=== PATIENT | female | born 1980 | race Caucasian/White ===

== ENCOUNTER 2019-02-27 00:03 | Emergency (ER) | payer MEDICAID, OTHER ==
[2019-02-27 00:27] VITALS: BP 120/75
== END 2019-02-27 00:45 | disposition left against medical advice (07) ==
LOC: MW.ED 00:03
DX: Z53.21 Procedure and treatment not carried out due to patient leaving prior to being seen by health care provider (principal)
CPT/HCPCS: 99283

== ENCOUNTER 2019-02-27 14:29 | Observation (INO) | payer MEDICAID ==
[2019-02-27] MEDS ORDERED: Sodium Chloride 0.9% 1,000 ML IV ONE ×2 (15:15→16:43)
--- NOTE | 2019-02-27 15:17 | EDM.PDOC ---
ED HPI GENERAL MEDICAL PROBLEM - General Chief Complaint: Drug or Alcohol Abuse Stated Complaint: CHEST PAINS Time Seen by Provider: 02/27/19 14:56 - History of Present Illness INITIAL COMMENTS - FREE TEXT/NARRATIVE: HISTORY AND PHYSICAL: History of present illness: Patient 38-year-old white female history of polysubstance abuse who presents with a concern of evaluation for possible rhabdomyolysis she states she's had similar episodes in the past when she had some mild rhabdomyolysis and feels similarly. She denies any other concern and states she has used heroin and methamphetamine as recently as yesterday Review of systems: As per history of present illness and below otherwise all systems reviewed and negative. Past medical history: As per history of present illness and as reviewed below otherwise noncontributory. Surgical history: As per history of present illness and as reviewed below otherwise noncontributory. Social history: No reported history of drug or alcohol abuse. Family history: As per history of present illness and as reviewed below otherwise noncontributory. Physical exam: HEENT: Atraumatic, normocephalic, pupils reactive, negative for conjunctival pallor or scleral icterus, mucous membranes moist, throat clear, neck supple, nontender, trachea midline. Lungs: Clear to auscultation, breath sounds equal bilaterally, chest nontender. Heart: S1S2, regular, negative for clicks, rubs, or JVD. Abdomen: Soft, nondistended, nontender. Negative for masses or hepatosplenomegaly. Negative for costovertebral tenderness. Pelvis: Stable nontender. Genitourinary: Deferred. Rectal: Deferred. Extremities: Atraumatic, negative for cords or calf pain. Neurovascular unremarkable. Neuro: Awake, alert, oriented. Cranial nerves II through XII unremarkable. Cerebellum unremarkable. Motor and sensory unremarkable throughout. Exam nonfocal. Diagnostics: CBC CMP UA hCG CPK Therapeutics: Saline 1 L bolus Impression: #1 medical screening exam over #2 history of polysubstance abuse Definitive disposition and diagnosis as appropriate pending reevaluation and review of above. Chest Pain Score (Numeric/FACES): 8 - Related Data Allergies Allergy/AdvReac Type Severity Reaction Status Date / Time ondansetron Allergy Rash Verified 02/27/19 14:32 [From Zofran (as hydrochloride)] tramadol Allergy Seizure Verified 02/27/19 14:32 Home Meds: Home Meds Doxepin [SINEquan] 100 mg PO BEDTIME 12/20/17 [History] Gabapentin [Neurontin] 400 mg PO BID 12/20/17 [History] Gabapentin [Neurontin] 800 mg PO BEDTIME 12/20/17 [History] OLANZapine [Olanzapine] 15 mg PO DAILY 12/20/17 [History] hydrOXYzine pamoate [Hydroxyzine Pamoate] 50 mg PO Q6H PRN 12/20/17 [History] Propranolol [Inderal] 20 mg PO DAILY 02/27/19 [History] Past Medical History HEENT History: Reports: None Cardiovascular History: Reports: Arrhythmia, Hypertension Respiratory History: Reports: PE Gastrointestinal History: Reports: None Genitourinary History: Reports: UTI, Recurrent PRICE CHECKER History: Reports: Other PRICE CHECKER History: Ovarian cyst Musculoskeletal History: Reports: Neck Pain, Chronic Neurological History: Reports: Seizure, Other (See Below) Other Neuro History: epilepsy Psychiatric History: Reports: Anxiety, Depression Endocrine/Metabolic History: Reports: None Hematologic History: Reports: Other (See Below) Other Hematologic History: clotting disorder Immunologic History: Reports: None Oncologic (Cancer) History: Reports: None - Infectious Disease History Infectious Disease History: Reports: Chicken Pox, Hepatitis C, MRSA - Past Surgical History Female Surgical History: Reports: Section, D&C, Tubal Ligation Social & Family History - Family History Family Medical History: Noncontributory Psychiatric: Reports: Anxiety, Depression, Emotional Problems - Tobacco Use Smoking Status *Q: Current Every Day Smoker Years of Tobacco use: 10 Packs/Tins Daily: 0.5 - Caffeine Use Caffeine Use: Reports: Coffee - Recreational Drug Use Recreational Drug Use: Yes Recreational Drug Type: Reports: Heroin, Marijuana/Hashish, Methamphetamine - Living Situation & Occupation Living situation: Reports: with Spouse ED ROS GENERAL - Review of Systems Review Of Systems: ROS reveals no pertinent complaints other than HPI. ED EXAM, GENERAL - Physical Exam Exam: See Below (See dictation) Course - Vital Signs Last Recorded V/S: Last Vital Signs Temp 36.2 C 02/27/19 14:33 Pulse 87 02/27/19 14:33 Resp 22 H 02/27/19 14:33 BP 122/85 02/27/19 14:33 Pulse Ox 98 02/27/19 14:33 - Orders/Labs/Meds Orders: Active Orders 24 hr Category Date Time Status CBC WITH AUTO DIFF [HEME] Stat Lab 02/27/19 15:40 Received COMPREHENSIVE METABOLIC PN,CMP [CHEM] Stat Lab 02/27/19 15:40 Received CPK [CREATINE KINASE,CK] [CHEM] Stat Lab 02/27/19 15:40 Received HCG QUALITATIVE,SERUM [CHEM] Stat Lab 02/27/19 15:40 Received UA RFX KRYSTEN AND CULT IF INDIC [URIN] Stat Lab 02/27/19 15:18 Received Sodium Chloride 0.9% [Normal Saline] 1,000 ml Med 02/27/19 16:43 Active IV STAT Medication Orders Sodium Chloride (Normal Saline) 1,000 mls @ 999 mls/hr IV STAT ONE Stop: 02/27/19 17:43 Last Admin: 02/27/19 17:17 Dose: 999 mls/hr Labs: Laboratory Tests 02/27/19 02/27/19 02/27/19 Range/Units 15:18 15:40 15:40 WBC 7.72 (4.0-11.0) K/uL RBC 4.19 L (4.30-5.90) M/uL Hgb 12.8 (12.0-16.0) g/dL Hct 36.6 (36.0-46.0) % MCV 87.4 (80.0-98.0) fL MCH 30.5 (27.0-32.0) pg MCHC 35.0 (31.0-37.0) g/dL RDW Std Deviation 44.3 (28.0-62.0) fl RDW Coeff of Michelle 14 (11.0-15.0) % Plt Count 307 (150-400) K/uL MPV 10.60 (7.40-12.00) fL Neut % (Auto) 24.8 L (48.0-80.0) % Lymph % (Auto) 58.9 H (16.0-40.0) % [place] % (Auto) 11.7 (0.0-15.0) % Eos % (Auto) 4.1 (0.0-7.0) % Baso % (Auto) 0.5 (0.0-1.5) % Neut # (Auto) 1.9 (1.4-5.7) K/uL Lymph # (Auto) 4.6 H (0.6-2.4) K/uL [place] # (Auto) 0.9 H (0.0-0.8) K/uL Eos # (Auto) 0.3 (0.0-0.7) K/uL Baso # (Auto) 0.0 (0.0-0.1) K/uL Sodium 135 L (136-145) mmol/L Potassium 3.8 (3.5-5.1) mmol/L Chloride 101 (98-107) mmol/L Carbon Dioxide 25.4 (21.0-32.0) mmol/L BUN 26 H (7.0-18.0) mg/dL Creatinine 1.4 H (0.6-1.0) mg/dL Est Cr Clr Drug Dosing TNP Estimated GFR (MDRD) 41.9 ml/min Glucose 105 (74-106) mg/dL Calcium 9.2 (8.5-10.1) mg/dL Total Bilirubin 0.4 (0.2-1.0) mg/dL AST 124 H (15-37) IU/L ALT 65 H (14-63) IU/L Alkaline Phosphatase 71 (46-116) U/L Creatine Kinase 1931 H (26-308) U/L Total Protein 7.0 (6.4-8.2) g/dL Albumin 3.6 (3.4-5.0) g/dL Globulin 3.4 (2.6-4.0) g/dL Albumin/Globulin Ratio 1.1 (0.9-1.6) HCG, Qual (NEG) Urine Color YELLOW Urine Appearance SLT CLOUDY Urine pH 5.0 (5.0-8.0) Ur Specific [place] >= 1.030 (1.001-1.035) Urine Protein TRACE H (NEGATIVE) mg/dL Urine Glucose (UA) NEGATIVE (NEGATIVE) mg/dL Urine Ketones NEGATIVE (NEGATIVE) mg/dL Urine Occult Blood NEGATIVE (NEGATIVE) Urine Nitrite NEGATIVE (NEGATIVE) Urine Bilirubin NEGATIVE (NEGATIVE) Urine Urobilinogen 0.2 (<2.0) EU/dL Ur Leukocyte Esterase NEGATIVE (NEGATIVE) Urine RBC 0-2 (0-2/HPF) Urine WBC 2-5 (0-5/HPF) Ur Epithelial Cells MANY (NONE-FEW) Urine Bacteria 1+ H (NEGATIVE) Hyaline Casts 12-15 (0-2/LPF) Urine Yeast OCCASIONAL 02/27/19 Range/Units 15:40 WBC (4.0-11.0) K/uL RBC (4.30-5.90) M/uL Hgb (12.0-16.0) g/dL Hct (36.0-46.0) % MCV (80.0-98.0) fL MCH (27.0-32.0) pg MCHC (31.0-37.0) g/dL RDW Std Deviation (28.0-62.0) fl RDW Coeff of Michelle (11.0-15.0) % Plt Count (150-400) K/uL MPV (7.40-12.00) fL Neut % (Auto) (48.0-80.0) % Lymph % (Auto) (16.0-40.0) % [place] % (Auto) (0.0-15.0) % Eos % (Auto) (0.0-7.0) % Baso % (Auto) (0.0-1.5) % Neut # (Auto) (1.4-5.7) K/uL Lymph # (Auto) (0.6-2.4) K/uL [place] # (Auto) (0.0-0.8) K/uL Eos # (Auto) (0.0-0.7) K/uL Baso # (Auto) (0.0-0.1) K/uL Sodium (136-145) mmol/L Potassium (3.5-5.1) mmol/L Chloride (98-107) mmol/L Carbon Dioxide (21.0-32.0) mmol/L BUN (7.0-18.0) mg/dL Creatinine (0.6-1.0) mg/dL Est Cr Clr Drug Dosing Estimated GFR (MDRD) ml/min Glucose (74-106) mg/dL Calcium (8.5-10.1) mg/dL Total Bilirubin (0.2-1.0) mg/dL AST (15-37) IU/L ALT (14-63) IU/L Alkaline Phosphatase (46-116) U/L Creatine Kinase (26-308) U/L Total Protein (6.4-8.2) g/dL Albumin (3.4-5.0) g/dL Globulin (2.6-4.0) g/dL Albumin/Globulin Ratio (0.9-1.6) HCG, Qual NEGATIVE (NEG) Urine Color Urine Appearance Urine pH (5.0-8.0) Ur Specific [place] (1.001-1.035) Urine Protein (NEGATIVE) mg/dL Urine Glucose (UA) (NEGATIVE) mg/dL Urine Ketones (NEGATIVE) mg/dL Urine Occult Blood (NEGATIVE) Urine Nitrite (NEGATIVE) Urine Bilirubin (NEGATIVE) Urine Urobilinogen (<2.0) EU/dL Ur Leukocyte Esterase (NEGATIVE) Urine RBC (0-2/HPF) Urine WBC (0-5/HPF) Ur Epithelial Cells (NONE-FEW) Urine Bacteria (NEGATIVE) Hyaline Casts (0-2/LPF) Urine Yeast Meds: Medications Generic Name Dose Route Start Last Admin Trade Name Freq PRN Reason Stop Dose Admin Sodium Chloride 1,000 mls @ 999 mls/hr 02/27/19 16:43 02/27/19 17:17 Normal Saline IV 02/27/19 17:43 999 mls/hr STAT ONE Administration Discontinued Medications Generic Name Dose Route Start Last Admin Trade Name Freq PRN Reason Stop Dose Admin Acetaminophen 1,000 mg 02/27/19 16:59 02/27/19 17:17 Tylenol Extra Strength PO 02/27/19 17:00 1,000 mg ONETIME ONE Administration Sodium Chloride 1,000 mls @ 999 mls/hr 02/27/19 15:15 02/27/19 15:48 Normal Saline IV 02/27/19 16:15 999 mls/hr STAT ONE Administration Lorazepam 1 mg 02/27/19 16:17 02/27/19 16:22 Ativan IVPUSH 02/27/19 16:18 1 mg NOW STA Administration Departure - Departure Time of Disposition: 17:41 Disposition: Refer to Observation Condition: Good Clinical Impression: Rhabdomyolysis, Polysubstance abuse - Discharge Information Referrals: PCP,None [Primary Care Provider] - Forms: ED Department Discharge - My Orders Last 24 Hours: My Active Orders 02/27/19 15:18 UA RFX KRYSTEN AND CULT IF INDIC [URIN] Stat 02/27/19 15:40 CBC WITH AUTO DIFF [HEME] Stat COMPREHENSIVE METABOLIC PN,CMP [CHEM] Stat CPK [CREATINE KINASE,CK] [CHEM] Stat HCG QUALITATIVE,SERUM [CHEM] Stat - Assessment/Plan Last 24 Hours: My Active Orders 02/27/19 15:18 UA RFX KYRSTEN AND CULT IF INDIC [URIN] Stat 02/27/19 15:40 CBC WITH AUTO DIFF [HEME] Stat COMPREHENSIVE METABOLIC PN,CMP [CHEM] Stat CPK [CREATINE KINASE,CK] [CHEM] Stat HCG QUALITATIVE,SERUM [CHEM] Stat
[2019-02-27] MEDS ORDERED: LORazepam 2 MG/ML SDV IVPUSH STA (16:17)
[2019-02-27 16:40] LABS: CHLORIDE,CL 101 mmol/L (98-107); SODIUM,NA 135 mmol/L (136-145)
[2019-02-27] MEDS ORDERED: Acetaminophen 500 MG Tab PO ONE (16:59)
[2019-02-27] MEDS ORDERED: cefTRIAXone 1 GM in Premix Bag 1 BAG IV ONE (17:43)
[2019-02-27] MEDS ORDERED: Ondansetron 4 MG/2 ML SDV IVPUSH PRN (18:15)
[2019-02-27] MEDS ORDERED: Docusate Sodium 100 MG Cap PO PRN (18:15)
[2019-02-27] MEDS ORDERED: hydrOXYzine Pamoate 25 MG Cap PO PRN (18:20)
--- NOTE | 2019-02-27 18:23 | PCM.HP ---
H&P History of Present Illness - General Date of Service: 02/27/19 Admit Problem/Dx: Admission Diagnosis/Problem Admission Diagnosis/Problem Rhabdomyolysis Source of Information: Patient, Family History Limitations: Reports: No Limitations - History of Present Illness Initial Comments - Free Text/Narative: The patient is a 38-year-old lady who had presented to the emergency department out of concern for polysubstance abuse. In the emergency department the patient was noted to have mild rhabdomyolysis. The patient reportedly had similar episodes in the past. Patient says that she is pending inpatient rehabilitation for polysubstance abuse when Medicaid application is approved. The patient has had back pain. The pain does not radiate. She describes the pain is completely up and down her back. No trauma. She has this whenever she has had withdrawal symptoms and this will go away on its own. The patient also has denied any nausea or vomiting. The patient says that she has recently moved to the area. Onset of Symptoms: Reports: Unknown/Unsure Duration of Symptoms: Reports: Week(s): Location: Reports: Generalized Quality: Reports: Ache, Throbbing Severity: Moderate Improves with: Reports: Rest Worsens with: Reports: None Context: Denies: Sick Contact, Trauma Associated Symptoms: Reports: No Other Symptoms Chest Pain Score (Numeric/FACES): 8 - Related Data Allergies/Adverse Reactions: Allergies Allergy/AdvReac Type Severity Reaction Status Date / Time ondansetron Allergy Rash Verified 02/27/19 14:32 [From Zofran (as hydrochloride)] tramadol Allergy Seizure Verified 02/27/19 14:32 Home Medications: Home Meds Doxepin [SINEquan] 100 mg PO BEDTIME 12/20/17 [History] Gabapentin [Neurontin] 400 mg PO BID 12/20/17 [History] Gabapentin [Neurontin] 800 mg PO BEDTIME 12/20/17 [History] OLANZapine [Olanzapine] 15 mg PO DAILY 12/20/17 [History] hydrOXYzine pamoate [Hydroxyzine Pamoate] 50 mg PO Q6H PRN 12/20/17 [History] Propranolol [Inderal] 20 mg PO DAILY 02/27/19 [History] Past Medical History HEENT History: Reports: None Cardiovascular History: Reports: Arrhythmia, Hypertension Respiratory History: Reports: PE Gastrointestinal History: Reports: None Genitourinary History: Reports: UTI, Recurrent 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 OF 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: Reports: Other OB/BYN History: Ovarian cyst Musculoskeletal History: Reports: Neck Pain, Chronic Neurological History: Reports: Seizure, Other (See Below) Other Neuro History: epilepsy Psychiatric History: Reports: Anxiety, Depression Endocrine/Metabolic History: Reports: None Hematologic History: Reports: Other (See Below) Other Hematologic History: clotting disorder Immunologic History: Reports: None Oncologic (Cancer) History: Reports: None Dermatologic History: Reports: None - Infectious Disease History Infectious Disease History: Reports: Chicken Pox, Hepatitis C, MRSA - Past Surgical History Female Surgical History: Reports: Section, D&C, Tubal Ligation Social & Family History - Family History Family Medical History: Noncontributory Psychiatric: Reports: Anxiety, Depression, Emotional Problems - Tobacco Use Smoking Status *Q: Current Every Day Smoker Years of Tobacco use: 10 Packs/Tins Daily: 0.5 - Caffeine Use Caffeine Use: Reports: Coffee - Recreational Drug Use Recreational Drug Use: Yes Recreational Drug Type: Reports: Heroin, Marijuana/Hashish, Methamphetamine - Living Situation & Occupation Living situation: Reports: with Spouse H&P Review of Systems - Review of Systems: Review Of Systems: See Below General: Reports: No Symptoms HEENT: Reports: Headaches Pulmonary: Reports: No Symptoms Cardiovascular: Reports: No Symptoms Gastrointestinal: Reports: No Symptoms Genitourinary: Reports: No Symptoms Musculoskeletal: Reports: Back Pain, Muscle Pain Skin: Reports: No Symptoms Psychiatric: Reports: Confusion, Mood Lability, Anxiety, Agitation. 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), Oriented, Cooperative HEENT: Conjunctiva Clear, EACs Clear, EOMI, Mucosa Moist & Roxie, PERRLA Neck: Supple, Trachea Midline, 2 Lungs: Clear to Auscultation, Normal Respiratory Effort Cardiovascular: Regular Rate, Regular Rhythm GI/Abdominal Exam: Normal Bowel Sounds (Currently eating), Soft, Non-Tender, No Distention (Female) Exam: Deferred Rectal (Female) Exam: Deferred Back Exam: Normal Inspection, Full Range of Motion, NT Extremities: Normal Inspection, Normal Range of Motion, No Pedal Edema Skin: Warm, Dry, Intact Neurological: Cranial Nerves Intact, Reflexes Equal Bilateral, Other (Marked dystonia). No: Normal Speech (Pressured speech) Neuro Extensive - Mental Status: Alert, Oriented x3 Neuro Extensive - Motor, Sensory, Reflexes: CN II-XII Intact, Normal Gait, Abnormal Motor Psychiatric: Alert, Normal Affect, Anxious, Agitated - Patient Data Lab Results Last 24 hrs: Laboratory Results - last 24 hr 02/27/19 02/27/19 02/27/19 Range/Units 15:18 15:40 15:40 WBC 7.72 (4.0-11.0) K/uL RBC 4.19 L (4.30-5.90) M/uL Hgb 12.8 (12.0-16.0) g/dL Hct 36.6 (36.0-46.0) % MCV 87.4 (80.0-98.0) fL MCH 30.5 (27.0-32.0) pg MCHC 35.0 (31.0-37.0) g/dL RDW Std Deviation 44.3 (28.0-62.0) fl RDW Coeff of Michelle 14 (11.0-15.0) % Plt Count 307 (150-400) K/uL MPV 10.60 (7.40-12.00) fL Neut % (Auto) 24.8 L (48.0-80.0) % Lymph % (Auto) 58.9 H (16.0-40.0) % Knox % (Auto) 11.7 (0.0-15.0) % Eos % (Auto) 4.1 (0.0-7.0) % Baso % (Auto) 0.5 (0.0-1.5) % Neut # (Auto) 1.9 (1.4-5.7) K/uL Lymph # (Auto) 4.6 H (0.6-2.4) K/uL Knox # (Auto) 0.9 H (0.0-0.8) K/uL Eos # (Auto) 0.3 (0.0-0.7) K/uL Baso # (Auto) 0.0 (0.0-0.1) K/uL Sodium 135 L (136-145) mmol/L Potassium 3.8 (3.5-5.1) mmol/L Chloride 101 (98-107) mmol/L Carbon Dioxide 25.4 (21.0-32.0) mmol/L BUN 26 H (7.0-18.0) mg/dL Creatinine 1.4 H (0.6-1.0) mg/dL Est Cr Clr Drug Dosing TNP Estimated GFR (MDRD) 41.9 ml/min Glucose 105 (74-106) mg/dL Calcium 9.2 (8.5-10.1) mg/dL Total Bilirubin 0.4 (0.2-1.0) mg/dL AST 124 H (15-37) IU/L ALT 65 H (14-63) IU/L Alkaline Phosphatase 71 (46-116) U/L Creatine Kinase 1931 H (26-308) U/L Total Protein 7.0 (6.4-8.2) g/dL Albumin 3.6 (3.4-5.0) g/dL Globulin 3.4 (2.6-4.0) g/dL Albumin/Globulin Ratio 1.1 (0.9-1.6) HCG, Qual (NEG) Urine Color YELLOW Urine Appearance SLT CLOUDY Urine pH 5.0 (5.0-8.0) Ur Specific Clif[place] >= 1.030 (1.001-1.035) Urine Protein TRACE H (NEGATIVE) mg/dL Urine Glucose (UA) NEGATIVE (NEGATIVE) mg/dL Urine Ketones NEGATIVE (NEGATIVE) mg/dL Urine Occult Blood NEGATIVE (NEGATIVE) Urine Nitrite NEGATIVE (NEGATIVE) Urine Bilirubin NEGATIVE (NEGATIVE) Urine Urobilinogen 0.2 (<2.0) EU/dL Ur Leukocyte Esterase NEGATIVE (NEGATIVE) Urine RBC 0-2 (0-2/HPF) Urine WBC 2-5 (0-5/HPF) Ur Epithelial Cells MANY (NONE-FEW) Urine Bacteria 1+ H (NEGATIVE) Hyaline Casts 12-15 (0-2/LPF) Urine Yeast OCCASIONAL 04/17/19 Range/Units 15:40 WBC (4.0-11.0) K/uL RBC (4.30-5.90) M/uL Hgb (12.0-16.0) g/dL Hct (36.0-46.0) % MCV (80.0-98.0) fL MCH (27.0-32.0) pg MCHC (31.0-37.0) g/dL RDW Std Deviation (28.0-62.0) fl RDW Coeff of Michelle (11.0-15.0) % Plt Count (150-400) K/uL MPV (7.40-12.00) fL Neut % (Auto) (48.0-80.0) % Lymph % (Auto) (16.0-40.0) % Knox % (Auto) (0.0-15.0) % Eos % (Auto) (0.0-7.0) % Baso % (Auto) (0.0-1.5) % Neut # (Auto) (1.4-5.7) K/uL Lymph # (Auto) (0.6-2.4) K/uL Knox # (Auto) (0.0-0.8) K/uL Eos # (Auto) (0.0-0.7) K/uL Baso # (Auto) (0.0-0.1) K/uL Sodium (136-145) mmol/L Potassium (3.5-5.1) mmol/L Chloride (98-107) mmol/L Carbon Dioxide (21.0-32.0) mmol/L BUN (7.0-18.0) mg/dL Creatinine (0.6-1.0) mg/dL Est Cr Clr Drug Dosing Estimated GFR (MDRD) ml/min Glucose (74-106) mg/dL Calcium (8.5-10.1) mg/dL Total Bilirubin (0.2-1.0) mg/dL AST (15-37) IU/L ALT (14-63) IU/L Alkaline Phosphatase (46-116) U/L Creatine Kinase (26-308) U/L Total Protein (6.4-8.2) g/dL Albumin (3.4-5.0) g/dL Globulin (2.6-4.0) g/dL Albumin/Globulin Ratio (0.9-1.6) HCG, Qual NEGATIVE (NEG) Urine Color Urine Appearance Urine pH (5.0-8.0) Ur Specific Clif[place] (1.001-1.035) Urine Protein (NEGATIVE) mg/dL Urine Glucose (UA) (NEGATIVE) mg/dL Urine Ketones (NEGATIVE) mg/dL Urine Occult Blood (NEGATIVE) Urine Nitrite (NEGATIVE) Urine Bilirubin (NEGATIVE) Urine Urobilinogen (<2.0) EU/dL Ur Leukocyte Esterase (NEGATIVE) Urine RBC (0-2/HPF) Urine WBC (0-5/HPF) Ur Epithelial Cells (NONE-FEW) Urine Bacteria (NEGATIVE) Hyaline Casts (0-2/LPF) Urine Yeast Result Diagrams: 02/28/19 04:50 02/28/19 04:50 - Problem List (1) Rhabdomyolysis SNOMED Code(s): 302969505 ICD Code: M62.82 - RHABDOMYOLYSIS Status: Acute Priority: High Current Visit: Yes Qualifiers: Rhabdomyolysis type: non-traumatic Qualified Code(s): M62.82 - Rhabdomyolysis (2) Anxiety SNOMED Code(s): 08223300 ICD Code: F41.9 - ANXIETY DISORDER, UNSPECIFIED Status: Chronic Priority : High Current Visit: Yes (3) UTI (urinary tract infection) SNOMED Code(s): 36410350 ICD Code: N39.0 - URINARY TRACT INFECTION, SITE NOT SPECIFIED Status: Acute Priority: High Current Visit: Yes Qualifiers: Urinary tract infection type: site unspecified Hematuria presence: without hematuria Qualified Code(s): N39.0 - Urinary tract infection, site not specified (4) Nausea & vomiting SNOMED Code(s): 47703653 ICD Code: R11.2 - NAUSEA WITH VOMITING, UNSPECIFIED Status: Acute Priority: High Current Visit: Yes Qualifiers: Vomiting type: bilious vomiting Qualified Code(s): R11.14 - Bilious vomiting (5) Polysubstance abuse SNOMED Code(s): 551187738 ICD Code: F19.10 - OTHER PSYCHOACTIVE SUBSTANCE ABUSE, UNCOMPLICATED Status : Chronic Priority: High Current Visit: Yes (6) Dehydration SNOMED Code(s): 08711012 ICD Code: E86.0 - DEHYDRATION Status: Acute Priority: High Current Visit: Yes Problem List Initiated/Reviewed/Updated: Yes Orders Last 24hrs: Active Orders 24 hr Category Date Time Status Patient Status [ADT] Stat ADT 02/27/19 17:42 Active Oxygen Therapy [RC] PRN Care 02/27/19 18:15 Ordered Up With Assistance [RC] ASDIRECTED Care 02/27/19 18:15 Ordered VTE/DVT Education [RC] PER UNIT ROUTINE Care 02/27/19 18:15 Ordered Vital Signs [RC] Q4H Care 02/27/19 18:15 Ordered Regular Diet [DIET] Diet 02/27/19 Breakfast Ordered CBC WITH AUTO DIFF [HEME] AM Lab 02/28/19 05:11 Ordered CBC WITH AUTO DIFF [HEME] Stat Lab 02/27/19 15:40 Received COMPREHENSIVE METABOLIC PN,CMP [CHEM] AM Lab 02/28/19 05:11 Ordered COMPREHENSIVE METABOLIC PN,CMP [CHEM] Stat Lab 02/27/19 15:40 Received CPK [CREATINE KINASE,CK] [CHEM] Stat Lab 02/27/19 15:40 Received CREATINE KINASE,CK [CHEM] Stat Lab 02/28/19 05:11 Ordered HCG QUALITATIVE,SERUM [CHEM] Stat Lab 02/27/19 15:40 Received UA RFX KRYSTEN AND CULT IF INDIC [URIN] Stat Lab 02/27/19 15:18 Received Acetaminophen [Tylenol] Med 02/27/19 18:15 Ordered 650 mg PO Q4H PRN Docusate Sodium [Colace] Med 02/27/19 18:15 Ordered 100 mg PO BID PRN Doxepin [SINEquan] Med 02/27/19 21:00 Ordered 100 mg PO BEDTIME Gabapentin Med 02/27/19 21:00 Ordered 400 mg PO BID Gabapentin [Neurontin] Med 02/27/19 21:00 Ordered 800 mg PO BEDTIME Heparin Sodium Med 02/27/19 18:15 Ordered 5,000 units SUBCUT Q8H Nicotine [Habitrol] Med 02/27/19 18:15 Ordered 14 mg TRDERM DAILY OLANZapine [Olanzapine] Med 02/28/19 09:00 Ordered 15 mg PO DAILY Ondansetron [Zofran] Med 02/27/19 18:15 Ordered 4 mg IVPUSH Q6H PRN Propranolol [Inderal] Med 02/28/19 09:00 Ordered 20 mg PO DAILY Sodium Chloride 0.9% @ 125 MLS/HR (1000ml) Med 02/27/19 18:15 Ordered Sodium Chloride 0.9% [Normal Saline] 1,000 ml IV ASDIRECTED hydrOXYzine pamoate [Hydroxyzine Pamoate] Med 02/27/19 18:20 Ordered 50 mg PO Q6H PRN Resuscitation Status Routine Resus Stat 02/27/19 18:15 Ordered Medication Orders Acetaminophen (Tylenol) 650 mg PO Q4H PRN PRN Reason: Pain (Mild 1-3)/fever Docusate Sodium (Colace) 100 mg PO BID PRN PRN Reason: Constipation Gabapentin (Neurontin) 800 mg PO BEDTIME BRANDEN Heparin Sodium (Porcine) (Heparin Sodium) 5,000 units SUBCUT Q8H BRANDEN Sodium Chloride (Normal Saline) 1,000 mls @ 125 mls/hr IV ASDIRECTED BRANDEN Nicotine (Habitrol) 14 mg TRDERM DAILY BRANDEN Non-Formulary Medication (Doxepin [Sinequan]) 100 mg PO BEDTIME BRANDEN Non-Formulary Medication (Gabapentin) 400 mg PO BID BRANDEN Non-Formulary Medication (Hydroxyzine Pamoate [Hydroxyzine Pamoate]) 50 mg PO Q6H PRN PRN Reason: Anxiety Non-Formulary Medication (Olanzapine [Olanzapine]) 15 mg PO DAILY BRANDEN Ondansetron HCl (Zofran) 4 mg IVPUSH Q6H PRN PRN Reason: Nausea/Vomiting Propranolol HCl (Inderal) 20 mg PO DAILY [facility] Assessment/Plan Comment:: The patient is a 38-year-old lady who has a significant past medical history of polysubstance abuse. The patient was admitted secondary to rhabdomyolysis with her CK elevated minimally above normal. This is likely secondary to the patient' s continued drug use. She will kept on IV normal saline at 125 mL per hour. This is done for renal preservation. Patient also says that her movement disorder will calm down after her pain is subsided. This is likely also secondary to withdrawal type symptoms. The patient is also dehydrated and the IV fluids should help this. I've ordered repeat laboratory studies for the morning as well as a CK to help check her rhabdomyolysis. Pending Medicaid approval the patient has said that she is going into inpatient drug and alcohol rehabilitation. The patient was not placed on CIWAA protocol other than being kept on telemetry. Given the patient's polysubstance abuse narcotic pain medications would not be given. The patient's pain will be controlled with the use of Tylenol or ibuprofen. She has been encouraged to ambulate. I've also ordered DVT prophylaxis. She should be appropriate for discharge once a CK has started to normalize.
[2019-02-27] MEDS: Gabapentin 800 MG Tab PO SCH (20:01)
[2019-02-27] MEDS: Sodium Chloride 0.9% 1,000 ML IV SCH (20:01)
[2019-02-27] MEDS: Doxepin 25 MG Cap PO SCH (20:01)
[2019-02-27] MEDS: Heparin Sodium 5,000 Units/ML Vial SUBCUT SCH (20:02)
[2019-02-27] MEDS: Nicotine 14 MG/24 Hr Patch TRDERM SCH (20:02)
[2019-02-28] MEDS: Heparin Sodium 5,000 Units/ML Vial SUBCUT SCH ×3 (02:50→18:51)
[2019-02-28] MEDS: Sodium Chloride 0.9% 1,000 ML IV SCH ×5 (02:51→23:40)
[2019-02-28 05:34] LABS: CHLORIDE,CL 109 mmol/L (98-107); SODIUM,NA 142 mmol/L (136-145)
[2019-02-28] MEDS: Gabapentin 800 MG Tab PO SCH ×3 (08:12→20:05)
[2019-02-28] MEDS: OLANZapine 5 MG Tab PO SCH (08:13)
[2019-02-28] MEDS: Propranolol 20 MG Tab PO SCH (08:14)
[2019-02-28] MEDS: Nicotine 14 MG/24 Hr Patch TRDERM SCH (08:14)
[2019-02-28] MEDS: Ciprofloxacin 500 MG Tab PO SCH ×2 (08:14→20:05)
[2019-02-28] MEDS: Acetaminophen 325 MG Tab PO PRN ×3 (08:32→18:51)
[2019-02-28] MEDS ORDERED: Sodium Chloride 0.9% 1,000 ML IV ONE (08:32)
--- NOTE | 2019-02-28 08:52 | PCM.PN ---
<Annamarie Sheffield M - Last Filed: 02/28/19 10:02> - General Info Date of Service: 02/28/19 Admission Dx/Problem (Free Text): Admission Diagnosis/Problem Admission Diagnosis/Problem Rhabdomyolysis Subjective Update: Reports having pain all over, but has improved since arrival in the ED. No Chest pain or SOB. reports carpal tunnel in R hand is hurting as well. at bedside with her. No other complaints. Would like to talk with social work regarding Medicaid Functional Status: Reports: Pain Controlled, Tolerating Diet, Ambulating, Urinating - Review of Systems General: Reports: Fatigue, Malaise HEENT: Reports: No Symptoms. Denies: Headaches, Sore Throat Pulmonary: Reports: No Symptoms. Denies: Shortness of Breath Cardiovascular: Reports: No Symptoms. Denies: Chest Pain Gastrointestinal: Reports: No Symptoms. Denies: Abdominal Pain, Nausea, Vomiting Genitourinary: Reports: No Symptoms Musculoskeletal: Reports: Hand Pain (R hand carpal tunnel painful), Joint Pain Skin: Reports: No Symptoms Neurological: Reports: No Symptoms Psychiatric: Reports: No Symptoms - Patient Data Vitals - Most Recent: Last Vital Signs Temp 96.5 F 02/28/19 07:26 Pulse 77 02/28/19 07:26 Resp 18 02/28/19 07:26 BP 104/59 L 02/28/19 07:26 Pulse Ox 95 02/28/19 03:54 Weight - Most Recent: 58.06 kg I&O - Last 24 Hours: Intake & Output 02/27/19 02/28/19 02/28/19 22:59 06:59 14:59 Intake Total 1453 Output Total 350 Balance 1103 Lab Results Last 24 Hours: Laboratory Results - last 24 hr 02/27/19 02/27/19 02/27/19 Range/Units 15:18 15:40 15:40 WBC 7.72 (4.0-11.0) K/uL RBC 4.19 L (4.30-5.90) M/uL Hgb 12.8 (12.0-16.0) g/dL Hct 36.6 (36.0-46.0) % MCV 87.4 (80.0-98.0) fL MCH 30.5 (27.0-32.0) pg MCHC 35.0 (31.0-37.0) g/dL RDW Std Deviation 44.3 (28.0-62.0) fl RDW Coeff of Michelle 14 (11.0-15.0) % Plt Count 307 (150-400) K/uL MPV 10.60 (7.40-12.00) fL Neut % (Auto) 24.8 L (48.0-80.0) % Lymph % (Auto) 58.9 H (16.0-40.0) % Kay % (Auto) 11.7 (0.0-15.0) % Eos % (Auto) 4.1 (0.0-7.0) % Baso % (Auto) 0.5 (0.0-1.5) % Neut # (Auto) 1.9 (1.4-5.7) K/uL Lymph # (Auto) 4.6 H (0.6-2.4) K/uL Kay # (Auto) 0.9 H (0.0-0.8) K/uL Eos # (Auto) 0.3 (0.0-0.7) K/uL Baso # (Auto) 0.0 (0.0-0.1) K/uL Sodium 135 L (136-145) mmol/L Potassium 3.8 (3.5-5.1) mmol/L Chloride 101 (98-107) mmol/L Carbon Dioxide 25.4 (21.0-32.0) mmol/L BUN 26 H (7.0-18.0) mg/dL Creatinine 1.4 H (0.6-1.0) mg/dL Est Cr Clr Drug Dosing TNP Estimated GFR (MDRD) 41.9 ml/min Glucose 105 (74-106) mg/dL Calcium 9.2 (8.5-10.1) mg/dL Total Bilirubin 0.4 (0.2-1.0) mg/dL AST 124 H (15-37) IU/L ALT 65 H (14-63) IU/L Alkaline Phosphatase 71 (46-116) U/L Creatine Kinase 1931 H (26-308) U/L Total Protein 7.0 (6.4-8.2) g/dL Albumin 3.6 (3.4-5.0) g/dL Globulin 3.4 (2.6-4.0) g/dL Albumin/Globulin Ratio 1.1 (0.9-1.6) HCG, Qual (NEG) Urine Color YELLOW Urine Appearance SLT CLOUDY Urine pH 5.0 (5.0-8.0) Ur Specific [place] >= 1.030 (1.001-1.035) Urine Protein TRACE H (NEGATIVE) mg/dL Urine Glucose (UA) NEGATIVE (NEGATIVE) mg/dL Urine Ketones NEGATIVE (NEGATIVE) mg/dL Urine Occult Blood NEGATIVE (NEGATIVE) Urine Nitrite NEGATIVE (NEGATIVE) Urine Bilirubin NEGATIVE (NEGATIVE) Urine Urobilinogen 0.2 (<2.0) EU/dL Ur Leukocyte Esterase NEGATIVE (NEGATIVE) Urine RBC 0-2 (0-2/HPF) Urine WBC 2-5 (0-5/HPF) Ur Epithelial Cells MANY (NONE-FEW) Urine Bacteria 1+ H (NEGATIVE) Hyaline Casts 12-15 (0-2/LPF) Urine Yeast OCCASIONAL 02/27/19 02/28/19 02/28/19 Range/Units 15:40 04:50 04:50 WBC 3.14 L (4.0-11.0) K/uL RBC 3.79 L (4.30-5.90) M/uL Hgb 11.5 L (12.0-16.0) g/dL Hct 34.0 L (36.0-46.0) % MCV 89.7 (80.0-98.0) fL MCH 30.3 (27.0-32.0) pg MCHC 33.8 (31.0-37.0) g/dL RDW Std Deviation 46.5 (28.0-62.0) fl RDW Coeff of Michelle 15 (11.0-15.0) % Plt Count 232 (150-400) K/uL MPV 10.40 (7.40-12.00) fL Neut % (Auto) 28.7 L (48.0-80.0) % Lymph % (Auto) 55.1 H (16.0-40.0) % Kay % (Auto) 8.9 (0.0-15.0) % Eos % (Auto) 5.7 (0.0-7.0) % Baso % (Auto) 1.6 H (0.0-1.5) % Neut # (Auto) 0.9 L (1.4-5.7) K/uL Lymph # (Auto) 1.7 (0.6-2.4) K/uL Kay # (Auto) 0.3 (0.0-0.8) K/uL Eos # (Auto) 0.2 (0.0-0.7) K/uL Baso # (Auto) 0.1 (0.0-0.1) K/uL Sodium 142 (136-145) mmol/L Potassium 4.0 (3.5-5.1) mmol/L Chloride 109 H (98-107) mmol/L Carbon Dioxide 25.1 (21.0-32.0) mmol/L BUN 20 H (7.0-18.0) mg/dL Creatinine 1.0 (0.6-1.0) mg/dL Est Cr Clr Drug Dosing 76.50 Estimated GFR (MDRD) > 60.0 ml/min Glucose 133 H (74-106) mg/dL Calcium 7.8 L (8.5-10.1) mg/dL Total Bilirubin 0.2 (0.2-1.0) mg/dL AST 93 H (15-37) IU/L ALT 57 (14-63) IU/L Alkaline Phosphatase 68 (46-116) U/L Creatine Kinase 815 H (26-308) U/L Total Protein 5.5 L (6.4-8.2) g/dL Albumin 2.5 L (3.4-5.0) g/dL Globulin 3.0 (2.6-4.0) g/dL Albumin/Globulin Ratio 0.8 L (0.9-1.6) HCG, Qual NEGATIVE (NEG) Urine Color Urine Appearance Urine pH (5.0-8.0) Ur Specific [place] (1.001-1.035) Urine Protein (NEGATIVE) mg/dL Urine Glucose (UA) (NEGATIVE) mg/dL Urine Ketones (NEGATIVE) mg/dL Urine Occult Blood (NEGATIVE) Urine Nitrite (NEGATIVE) Urine Bilirubin (NEGATIVE) Urine Urobilinogen (<2.0) EU/dL Ur Leukocyte Esterase (NEGATIVE) Urine RBC (0-2/HPF) Urine WBC (0-5/HPF) Ur Epithelial Cells (NONE-FEW) Urine Bacteria (NEGATIVE) Hyaline Casts (0-2/LPF) Urine Yeast Med Orders - Current: Current Medications Acetaminophen (Tylenol) 650 mg PO Q4H PRN PRN Reason: Pain (Mild 1-3)/fever Last Admin: 02/28/19 08:32 Dose: 650 mg Ciprofloxacin (Ciprofloxacin Hcl) 500 mg PO BID [facility] Last Admin: 02/28/19 08:14 Dose: 500 mg Docusate Sodium (Colace) 100 mg PO BID PRN PRN Reason: Constipation Doxepin HCl (Sinequan) 100 mg PO BEDTIME [facility] Last Admin: 02/27/19 20:01 Dose: 100 mg Gabapentin (Neurontin) 400 mg PO BID@0900,1400 [facility] Last Admin: 02/28/19 08:12 Dose: 400 mg Gabapentin (Neurontin) 800 mg PO BEDTIME [facility] Last Admin: 02/27/19 20:01 Dose: 800 mg Heparin Sodium (Porcine) (Heparin Sodium) 5,000 units SUBCUT Q8H [facility] Last Admin: 02/28/19 02:50 Dose: 5,000 units Hydroxyzine Pamoate (Vistaril) 50 mg PO Q6H PRN PRN Reason: Anxiety Last Admin: 02/27/19 20:13 Dose: 50 mg Sodium Chloride (Normal Saline) 1,000 mls @ 999 mls/hr IV .Bolus ONE Stop: 02/28/19 09:32 Sodium Chloride (Normal Saline) 1,000 mls @ 200 mls/hr IV ASDIRECTED [facility] Nicotine (Habitrol) 14 mg TRDERM DAILY [facility] Last Admin: 02/28/19 08:14 Dose: 14 mg Olanzapine (Zyprexa) 15 mg PO DAILY [facility] Last Admin: 02/28/19 08:13 Dose: 15 mg Propranolol HCl (Inderal) 20 mg PO DAILY [facility] Last Admin: 02/28/19 08:14 Dose: 20 mg Discontinued Medications Acetaminophen (Tylenol Extra Strength) 1,000 mg PO ONETIME ONE Stop: 02/27/19 17:00 Last Admin: 02/27/19 17:17 Dose: 1,000 mg Sodium Chloride (Normal Saline) 1,000 mls @ 999 mls/hr IV STAT ONE Stop: 02/27/19 16:15 Last Admin: 02/27/19 15:48 Dose: 999 mls/hr Sodium Chloride (Normal Saline) 1,000 mls @ 999 mls/hr IV STAT ONE Stop: 02/27/19 17:43 Last Infusion: 02/27/19 17:53 Dose: 100 mls/hr Ceftriaxone Sodium/Dextrose 1 (gm/ Premix) 50 mls @ 100 mls/hr IV ONETIME ONE Stop: 02/27/19 18:12 Last Admin: 02/27/19 17:51 Dose: 100 mls/hr Sodium Chloride (Normal Saline) 1,000 mls @ 125 mls/hr IV ASDIRECTED [facility] Last Admin: 02/28/19 02:51 Dose: 125 mls/hr Lorazepam (Ativan) 1 mg IVPUSH NOW STA Stop: 02/27/19 16:18 Last Admin: 02/27/19 16:22 Dose: 1 mg Ondansetron HCl (Zofran) 4 mg IVPUSH Q6H PRN PRN Reason: Nausea/Vomiting - Exam General: Alert, Oriented Lungs: Clear to Auscultation, Normal Respiratory Effort Cardiovascular: Regular Rate, Regular Rhythm GI/Abdominal Exam: Normal Bowel Sounds, Soft, Non-Tender, No Organomegaly Extremities: Normal Inspection, Normal Range of Motion, Non-Tender, No Pedal Edema, Normal Capillary Refill Neurological: No New Focal Deficit Psy/Mental Status: Alert, Normal Affect, Normal Mood - Problem List & Annotations (1) Rhabdomyolysis SNOMED Code(s): 499329631 Code(s): M62.82 - RHABDOMYOLYSIS Status: Acute Priority: High Current Visit: Yes Qualifiers: Rhabdomyolysis type: non-traumatic Qualified Code(s): M62.82 - Rhabdomyolysis (2) Dehydration SNOMED Code(s): 55509236 Code(s): E86.0 - DEHYDRATION Status: Acute Priority: High Current Visit : Yes (3) Nausea & vomiting SNOMED Code(s): 41172189 Code(s): R11.2 - NAUSEA WITH VOMITING, UNSPECIFIED Status: Acute Priority : High Current Visit: Yes Qualifiers: Vomiting type: bilious vomiting Qualified Code(s): R11.14 - Bilious vomiting (4) UTI (urinary tract infection) SNOMED Code(s): 51862294 Code(s): N39.0 - URINARY TRACT INFECTION, SITE NOT SPECIFIED Status: Acute Priority: High Current Visit: Yes Qualifiers: Urinary tract infection type: site unspecified Hematuria presence: without hematuria Qualified Code(s): N39.0 - Urinary tract infection, site not specified (5) Anxiety SNOMED Code(s): 14379455 Code(s): F41.9 - ANXIETY DISORDER, UNSPECIFIED Status: Chronic Priority: High Current Visit: Yes (6) Polysubstance abuse SNOMED Code(s): 009297483 Code(s): F19.10 - OTHER PSYCHOACTIVE SUBSTANCE ABUSE, UNCOMPLICATED Status : Chronic Priority: High Current Visit: Yes - Problem List Review Problem List Initiated/Reviewed/Updated: Yes - My Orders Last 24 Hours: My Active Orders 02/28/19 08:32 Sodium Chloride 0.9% [Normal Saline] 1,000 ml IV .Bolus 02/28/19 08:33 Sodium Chloride 0.9% [Normal Saline] 1,000 ml IV ASDIRECTED - Plan Plan:: This 38 year old female admitted with rhabdomyolysis 1. Rhabdomyolysis: CPK improving this morning. Muscle pain improving as well. Will give 1 L bolus and increase IVFs to 200 ml/hr. Recheck CPK in am. Tylenol is helping with pain 2. Chronic pain: Continue Gabapentin. 3. Anxiety: Continue Vistaril. Monitor, stable. 4. Polysubstance abuse: Pending Medicaid approval for her to enter rehab facility. VE prophylaxis: Heparin Dispo: 1-2 days pending improvement. <Pankaj Adams - Last Filed: 02/28/19 12:16> - General Info Admission Dx/Problem (Free Text): I have seen and examined the patient independently of Annamarie Sheffield CNP. I have discussed the case with her. I have reviewed and agreed with the plan of treatment as outlined for this patient by her. Please see orders. - Patient Data Vitals - Most Recent: Last Vital Signs Temp 36.3 C 02/28/19 11:33 Pulse 68 02/28/19 11:33 Resp 16 02/28/19 11:33 BP 104/65 02/28/19 11:33 Pulse Ox 99 02/28/19 11:33 I&O - Last 24 Hours: Intake & Output 02/27/19 02/28/19 02/28/19 22:59 06:59 14:59 Intake Total 1453 Output Total 350 Balance 1103 Lab Results Last 24 Hours: Laboratory Results - last 24 hr 02/27/19 02/27/19 02/27/19 Range/Units 15:18 15:40 15:40 WBC 7.72 (4.0-11.0) K/uL RBC 4.19 L (4.30-5.90) M/uL Hgb 12.8 (12.0-16.0) g/dL Hct 36.6 (36.0-46.0) % MCV 87.4 (80.0-98.0) fL MCH 30.5 (27.0-32.0) pg MCHC 35.0 (31.0-37.0) g/dL RDW Std Deviation 44.3 (28.0-62.0) fl RDW Coeff of Michelle 14 (11.0-15.0) % Plt Count 307 (150-400) K/uL MPV 10.60 (7.40-12.00) fL Neut % (Auto) 24.8 L (48.0-80.0) % Lymph % (Auto) 58.9 H (16.0-40.0) % Kay % (Auto) 11.7 (0.0-15.0) % Eos % (Auto) 4.1 (0.0-7.0) % Baso % (Auto) 0.5 (0.0-1.5) % Neut # (Auto) 1.9 (1.4-5.7) K/uL Lymph # (Auto) 4.6 H (0.6-2.4) K/uL Kay # (Auto) 0.9 H (0.0-0.8) K/uL Eos # (Auto) 0.3 (0.0-0.7) K/uL Baso # (Auto) 0.0 (0.0-0.1) K/uL Sodium 135 L (136-145) mmol/L Potassium 3.8 (3.5-5.1) mmol/L Chloride 101 (98-107) mmol/L Carbon Dioxide 25.4 (21.0-32.0) mmol/L BUN 26 H (7.0-18.0) mg/dL Creatinine 1.4 H (0.6-1.0) mg/dL Est Cr Clr Drug Dosing TNP Estimated GFR (MDRD) 41.9 ml/min Glucose 105 (74-106) mg/dL Calcium 9.2 (8.5-10.1) mg/dL Total Bilirubin 0.4 (0.2-1.0) mg/dL AST 124 H (15-37) IU/L ALT 65 H (14-63) IU/L Alkaline Phosphatase 71 (46-116) U/L Creatine Kinase 1931 H (26-308) U/L Total Protein 7.0 (6.4-8.2) g/dL Albumin 3.6 (3.4-5.0) g/dL Globulin 3.4 (2.6-4.0) g/dL Albumin/Globulin Ratio 1.1 (0.9-1.6) HCG, Qual (NEG) Urine Color YELLOW Urine Appearance SLT CLOUDY Urine pH 5.0 (5.0-8.0) Ur Specific [place] >= 1.030 (1.001-1.035) Urine Protein TRACE H (NEGATIVE) mg/dL Urine Glucose (UA) NEGATIVE (NEGATIVE) mg/dL Urine Ketones NEGATIVE (NEGATIVE) mg/dL Urine Occult Blood NEGATIVE (NEGATIVE) Urine Nitrite NEGATIVE (NEGATIVE) Urine Bilirubin NEGATIVE (NEGATIVE) Urine Urobilinogen 0.2 (<2.0) EU/dL Ur Leukocyte Esterase NEGATIVE (NEGATIVE) Urine RBC 0-2 (0-2/HPF) Urine WBC 2-5 (0-5/HPF) Ur Epithelial Cells MANY (NONE-FEW) Urine Bacteria 1+ H (NEGATIVE) Hyaline Casts 12-15 (0-2/LPF) Urine Yeast OCCASIONAL 02/27/19 02/28/19 02/28/19 Range/Units 15:40 04:50 04:50 WBC 3.14 L (4.0-11.0) K/uL RBC 3.79 L (4.30-5.90) M/uL Hgb 11.5 L (12.0-16.0) g/dL Hct 34.0 L (36.0-46.0) % MCV 89.7 (80.0-98.0) fL MCH 30.3 (27.0-32.0) pg MCHC 33.8 (31.0-37.0) g/dL RDW Std Deviation 46.5 (28.0-62.0) fl RDW Coeff of Michelle 15 (11.0-15.0) % Plt Count 232 (150-400) K/uL MPV 10.40 (7.40-12.00) fL Neut % (Auto) 28.7 L (48.0-80.0) % Lymph % (Auto) 55.1 H (16.0-40.0) % Kay % (Auto) 8.9 (0.0-15.0) % Eos % (Auto) 5.7 (0.0-7.0) % Baso % (Auto) 1.6 H (0.0-1.5) % Neut # (Auto) 0.9 L (1.4-5.7) K/uL Lymph # (Auto) 1.7 (0.6-2.4) K/uL Kay # (Auto) 0.3 (0.0-0.8) K/uL Eos # (Auto) 0.2 (0.0-0.7) K/uL Baso # (Auto) 0.1 (0.0-0.1) K/uL Sodium 142 (136-145) mmol/L Potassium 4.0 (3.5-5.1) mmol/L Chloride 109 H (98-107) mmol/L Carbon Dioxide 25.1 (21.0-32.0) mmol/L BUN 20 H (7.0-18.0) mg/dL Creatinine 1.0 (0.6-1.0) mg/dL Est Cr Clr Drug Dosing 76.50 Estimated GFR (MDRD) > 60.0 ml/min Glucose 133 H (74-106) mg/dL Calcium 7.8 L (8.5-10.1) mg/dL Total Bilirubin 0.2 (0.2-1.0) mg/dL AST 93 H (15-37) IU/L ALT 57 (14-63) IU/L Alkaline Phosphatase 68 (46-116) U/L Creatine Kinase 815 H (26-308) U/L Total Protein 5.5 L (6.4-8.2) g/dL Albumin 2.5 L (3.4-5.0) g/dL Globulin 3.0 (2.6-4.0) g/dL Albumin/Globulin Ratio 0.8 L (0.9-1.6) HCG, Qual NEGATIVE (NEG) Urine Color Urine Appearance Urine pH (5.0-8.0) Ur Specific [place] (1.001-1.035) Urine Protein (NEGATIVE) mg/dL Urine Glucose (UA) (NEGATIVE) mg/dL Urine Ketones (NEGATIVE) mg/dL Urine Occult Blood (NEGATIVE) Urine Nitrite (NEGATIVE) Urine Bilirubin (NEGATIVE) Urine Urobilinogen (<2.0) EU/dL Ur Leukocyte Esterase (NEGATIVE) Urine RBC (0-2/HPF) Urine WBC (0-5/HPF) Ur Epithelial Cells (NONE-FEW) Urine Bacteria (NEGATIVE) Hyaline Casts (0-2/LPF) Urine Yeast Med Orders - Current: Current Medications Acetaminophen (Tylenol) 650 mg PO Q4H PRN PRN Reason: Pain (Mild 1-3)/fever Last Admin: 02/28/19 08:32 Dose: 650 mg Ciprofloxacin (Ciprofloxacin Hcl) 500 mg PO BID [facility] Last Admin: 02/28/19 08:14 Dose: 500 mg Docusate Sodium (Colace) 100 mg PO BID PRN PRN Reason: Constipation Doxepin HCl (Sinequan) 100 mg PO BEDTIME [facility] Last Admin: 02/27/19 20:01 Dose: 100 mg Gabapentin (Neurontin) 400 mg PO BID@0900,1400 [facility] Last Admin: 02/28/19 08:12 Dose: 400 mg Gabapentin (Neurontin) 800 mg PO BEDTIME [facility] Last Admin: 02/27/19 20:01 Dose: 800 mg Heparin Sodium (Porcine) (Heparin Sodium) 5,000 units SUBCUT Q8H [facility] Last Admin: 02/28/19 10:56 Dose: 5,000 units Hydroxyzine Pamoate (Vistaril) 50 mg PO Q6H PRN PRN Reason: Anxiety Last Admin: 02/27/19 20:13 Dose: 50 mg Sodium Chloride (Normal Saline) 1,000 mls @ 200 mls/hr IV ASDIRECTED [facility] Last Admin: 02/28/19 10:04 Dose: 200 mls/hr Nicotine (Habitrol) 14 mg TRDERM DAILY [facility] Last Admin: 02/28/19 08:14 Dose: 14 mg Olanzapine (Zyprexa) 15 mg PO DAILY [facility] Last Admin: 02/28/19 08:13 Dose: 15 mg Propranolol HCl (Inderal) 20 mg PO DAILY [facility] Last Admin: 02/28/19 08:14 Dose: 20 mg Discontinued Medications Acetaminophen (Tylenol Extra Strength) 1,000 mg PO ONETIME ONE Stop: 02/27/19 17:00 Last Admin: 02/27/19 17:17 Dose: 1,000 mg Sodium Chloride (Normal Saline) 1,000 mls @ 999 mls/hr IV STAT ONE Stop: 02/27/19 16:15 Last Admin: 02/27/19 15:48 Dose: 999 mls/hr Sodium Chloride (Normal Saline) 1,000 mls @ 999 mls/hr IV STAT ONE Stop: 02/27/19 17:43 Last Infusion: 02/27/19 17:53 Dose: 100 mls/hr Ceftriaxone Sodium/Dextrose 1 (gm/ Premix) 50 mls @ 100 mls/hr IV ONETIME ONE Stop: 02/27/19 18:12 Last Admin: 02/27/19 17:51 Dose: 100 mls/hr Sodium Chloride (Normal Saline) 1,000 mls @ 125 mls/hr IV ASDIRECTED [facility] Last Admin: 02/28/19 02:51 Dose: 125 mls/hr Sodium Chloride (Normal Saline) 1,000 mls @ 999 mls/hr IV .Bolus ONE Stop: 02/28/19 09:32 Last Admin: 02/28/19 08:58 Dose: 999 mls/hr Lorazepam (Ativan) 1 mg IVPUSH NOW STA Stop: 02/27/19 16:18 Last Admin: 02/27/19 16:22 Dose: 1 mg Ondansetron HCl (Zofran) 4 mg IVPUSH Q6H PRN PRN Reason: Nausea/Vomiting - Problem List & Annotations (1) Rhabdomyolysis SNOMED Code(s): 408413231 Code(s): M62.82 - RHABDOMYOLYSIS Status: Acute Priority: High Current Visit: Yes Qualifiers: Rhabdomyolysis type: non-traumatic Qualified Code(s): M62.82 - Rhabdomyolysis (2) Anxiety SNOMED Code(s): 67365140 Code(s): F41.9 - ANXIETY DISORDER, UNSPECIFIED Status: Chronic Priority: High Current Visit: Yes (3) UTI (urinary tract infection) SNOMED Code(s): 65701642 Code(s): N39.0 - URINARY TRACT INFECTION, SITE NOT SPECIFIED Status: Acute Priority: High Current Visit: Yes Qualifiers: Urinary tract infection type: site unspecified Hematuria presence: without hematuria Qualified Code(s): N39.0 - Urinary tract infection, site not specified (4) Nausea & vomiting SNOMED Code(s): 26964935 Code(s): R11.2 - NAUSEA WITH VOMITING, UNSPECIFIED Status: Acute Priority : High Current Visit: Yes Qualifiers: Vomiting type: bilious vomiting Qualified Code(s): R11.14 - Bilious vomiting (5) Polysubstance abuse SNOMED Code(s): 443350562 Code(s): F19.10 - OTHER PSYCHOACTIVE SUBSTANCE ABUSE, UNCOMPLICATED Status : Chronic Priority: High Current Visit: Yes (6) Dehydration SNOMED Code(s): 51199239 Code(s): E86.0 - DEHYDRATION Status: Acute Priority: High Current Visit : Yes - My Orders Last 24 Hours: My Active Orders 02/27/19 18:15 Oxygen Therapy [RC] PRN Up With Assistance [RC] ASDIRECTED VTE/DVT Education [RC] PER UNIT ROUTINE Vital Signs [RC] Q4H Acetaminophen [Tylenol] 650 mg PO Q4H PRN Docusate Sodium [Colace] 100 mg PO BID PRN Heparin Sodium 5,000 units SUBCUT Q8H Nicotine [Habitrol] 14 mg TRDERM DAILY Resuscitation Status Routine 02/27/19 18:20 hydrOXYzine pamoate [Vistaril] 50 mg PO Q6H PRN 02/27/19 21:00 Doxepin [SINEquan] 100 mg PO BEDTIME Gabapentin [Neurontin] 800 mg PO BEDTIME 02/28/19 05:11 CBC WITH AUTO DIFF [HEME] AM COMPREHENSIVE METABOLIC PN,CMP [CHEM] AM CREATINE KINASE,CK [CHEM] Stat 02/28/19 09:00 Ciprofloxacin [Ciprofloxacin HCl] 500 mg PO BID Gabapentin [Neurontin] 400 mg PO BID@0900,1400 OLANZapine [ZyPREXA] 15 mg PO DAILY Propranolol [Inderal] 20 mg PO DAILY
[2019-02-28] MEDS: Doxepin 25 MG Cap PO SCH (20:05)
[2019-03-01] MEDS: Heparin Sodium 5,000 Units/ML Vial SUBCUT SCH ×2 (03:13→10:28)
[2019-03-01 05:43] LABS: CHLORIDE,CL 109 mmol/L (98-107); SODIUM,NA 138 mmol/L (136-145)
[2019-03-01] MEDS: Sodium Chloride 0.9% 1,000 ML IV SCH (06:24)
--- NOTE | 2019-03-01 08:12 | PCM.HP ---
H&P History of Present Illness - General Date of Service: 03/01/19 Admit Problem/Dx: Rhabdomyolysis Source of Information: Patient Chest Pain Score (Numeric/FACES): 8 - Related Data Allergies/Adverse Reactions: Allergies Allergy/AdvReac Type Severity Reaction Status Date / Time ondansetron Allergy Rash Verified 02/27/19 14:32 [From Zofran (as hydrochloride)] tramadol Allergy Seizure Verified 02/27/19 14:32 Home Medications: Home Meds Doxepin [SINEquan] 100 mg PO BEDTIME 12/20/17 [History] Gabapentin [Neurontin] 400 mg PO BID 12/20/17 [History] Gabapentin [Neurontin] 800 mg PO BEDTIME 12/20/17 [History] OLANZapine [Olanzapine] 15 mg PO DAILY 12/20/17 [History] hydrOXYzine pamoate [Hydroxyzine Pamoate] 50 mg PO Q6H PRN 12/20/17 [History] Propranolol [Inderal] 20 mg PO DAILY 02/27/19 [History] Acetaminophen [Tylenol] 650 mg PO Q4H PRN tablet 03/01/19 [Rx] Ciprofloxacin [Ciprofloxacin HCl] 500 mg PO BID #10 tablet 03/01/19 [Rx] Ibuprofen [Motrin] 400 mg PO Q6H PRN #1 tab 03/01/19 [Rx] Past Medical History HEENT History: Reports: None Cardiovascular History: Reports: Arrhythmia, Hypertension Respiratory History: Reports: PE Gastrointestinal History: Reports: None Genitourinary History: Reports: UTI, Recurrent [employer] History: Reports: Other OB/BYN History: Ovarian cyst Musculoskeletal History: Reports: Neck Pain, Chronic Neurological History: Reports: Seizure, Other (See Below) Other Neuro History: epilepsy Psychiatric History: Reports: Anxiety, Depression Endocrine/Metabolic History: Reports: None Hematologic History: Reports: Other (See Below) Other Hematologic History: clotting disorder Immunologic History: Reports: None Oncologic (Cancer) History: Reports: None Dermatologic History: Reports: None - Infectious Disease History Infectious Disease History: Reports: Chicken Pox, Hepatitis C, MRSA - Past Surgical History Female Surgical History: Reports: Section, D&C, Tubal Ligation Social & Family History - Family History Family Medical History: Noncontributory Psychiatric: Reports: Anxiety, Depression, Emotional Problems - Tobacco Use Smoking Status *Q: Current Every Day Smoker Years of Tobacco use: 10 Packs/Tins Daily: 0.5 Used Tobacco, but Quit: No - Caffeine Use Caffeine Use: Reports: Coffee - Alcohol Use Date of Last Drink: 02/25/19 - Recreational Drug Use Recreational Drug Use: Yes Drug Use in Last 12 Months: Yes Recreational Drug Type: Reports: Heroin, Marijuana/Hashish, Methamphetamine Recreational Drug Use Frequency: Patient Refuses To Answer - Living Situation & Occupation Living situation: Reports: with Spouse Exam - Vital Signs Vital Signs: Last Vital Signs Temp 98.1 F 03/01/19 03:58 Pulse 76 03/01/19 03:58 Resp 18 03/01/19 03:58 BP 125/84 03/01/19 03:58 Pulse Ox 99 03/01/19 03:58 Weight: 70.488 kg - Patient Data Lab Results Last 24 hrs: Laboratory Results - last 24 hr 03/01/19 Range/Units 05:10 Sodium 138 (136-145) mmol/L Potassium 4.2 (3.5-5.1) mmol/L Chloride 109 H (98-107) mmol/L Carbon Dioxide 22.8 (21.0-32.0) mmol/L BUN 13 (7.0-18.0) mg/dL Creatinine 0.7 (0.6-1.0) mg/dL Est Cr Clr Drug Dosing 120.07 mL/min Estimated GFR (MDRD) > 60.0 ml/min Glucose 90 (74-106) mg/dL Calcium 7.3 L (8.5-10.1) mg/dL Total Bilirubin 0.2 (0.2-1.0) mg/dL AST 57 H (15-37) IU/L ALT 45 (14-63) IU/L Alkaline Phosphatase 59 (46-116) U/L Creatine Kinase 243 (26-308) U/L Total Protein 4.9 L (6.4-8.2) g/dL Albumin 2.2 L (3.4-5.0) g/dL Globulin 2.7 (2.6-4.0) g/dL Albumin/Globulin Ratio 0.8 L (0.9-1.6) Result Diagrams: 02/28/19 04:50 03/01/19 05:10 - Problem List (1) Rhabdomyolysis SNOMED Code(s): 436949826 ICD Code: M62.82 - RHABDOMYOLYSIS Status: Acute Priority: High Current Visit: Yes Qualifiers: Rhabdomyolysis type: non-traumatic Qualified Code(s): M62.82 - Rhabdomyolysis (2) Dehydration SNOMED Code(s): 64867895 ICD Code: E86.0 - DEHYDRATION Status: Acute Priority: High Current Visit: Yes (3) Nausea & vomiting SNOMED Code(s): 68701820 ICD Code: R11.2 - NAUSEA WITH VOMITING, UNSPECIFIED Status: Acute Priority: High Current Visit: Yes Qualifiers: Vomiting type: bilious vomiting Qualified Code(s): R11.14 - Bilious vomiting (4) UTI (urinary tract infection) SNOMED Code(s): 11395321 ICD Code: N39.0 - URINARY TRACT INFECTION, SITE NOT SPECIFIED Status: Acute Priority: High Current Visit: Yes Qualifiers: Urinary tract infection type: site unspecified Hematuria presence: without hematuria Qualified Code(s): N39.0 - Urinary tract infection, site not specified (5) Anxiety SNOMED Code(s): 19961727 ICD Code: F41.9 - ANXIETY DISORDER, UNSPECIFIED Status: Chronic Priority : High Current Visit: Yes (6) Polysubstance abuse SNOMED Code(s): 073770944 ICD Code: F19.10 - OTHER PSYCHOACTIVE SUBSTANCE ABUSE, UNCOMPLICATED Status : Chronic Priority: High Current Visit: Yes Orders Last 24hrs: Active Orders 24 hr Category Date Time Status Ready for Discharge [RC] PER UNIT ROUTINE Care 03/01/19 08:11 Ordered COMPREHENSIVE METABOLIC PN,CMP [CHEM] AM Lab 03/01/19 05:11 Ordered COMPREHENSIVE METABOLIC PN,CMP [CHEM] AM Lab 03/02/19 05:11 Ordered COMPREHENSIVE METABOLIC PN,CMP [CHEM] AM Lab 03/03/19 05:11 Ordered CREATINE KINASE,CK [CHEM] AM Lab 03/01/19 05:11 Ordered CREATINE KINASE,CK [CHEM] AM Lab 03/02/19 05:11 Ordered CREATINE KINASE,CK [CHEM] AM Lab 03/03/19 05:11 Ordered Ciprofloxacin [Ciprofloxacin HCl] Med 02/28/19 09:00 Active 500 mg PO BID Gabapentin [Neurontin] Med 02/28/19 09:00 Active 400 mg PO BID@0900,1400 OLANZapine [ZyPREXA] Med 02/28/19 09:00 Active 15 mg PO DAILY Propranolol [Inderal] Med 02/28/19 09:00 Active 20 mg PO DAILY Sodium Chloride 0.9% [Normal Saline] 1,000 ml Med 02/28/19 08:33 Active IV ASDIRECTED Medication Orders Acetaminophen (Tylenol) 650 mg PO Q4H PRN PRN Reason: Pain (Mild 1-3)/fever Last Admin: 02/28/19 18:51 Dose: 650 mg Admin: 02/28/19 13:58 Dose: 650 mg Admin: 02/28/19 08:32 Dose: 650 mg Ciprofloxacin (Ciprofloxacin Hcl) 500 mg PO BID [facility] Last Admin: 02/28/19 20:05 Dose: 500 mg Admin: 02/28/19 08:14 Dose: 500 mg Docusate Sodium (Colace) 100 mg PO BID PRN PRN Reason: Constipation Doxepin HCl (Sinequan) 100 mg PO BEDTIME [facility] Last Admin: 02/28/19 20:05 Dose: 100 mg Admin: 02/27/19 20:01 Dose: 100 mg Gabapentin (Neurontin) 400 mg PO BID@0900,1400 [facility] Last Admin: 02/28/19 13:53 Dose: 400 mg Admin: 02/28/19 08:12 Dose: 400 mg Gabapentin (Neurontin) 800 mg PO BEDTIME [facility] Last Admin: 02/28/19 20:05 Dose: 800 mg Admin: 02/27/19 20:01 Dose: 800 mg Heparin Sodium (Porcine) (Heparin Sodium) 5,000 units SUBCUT Q8H [facility] Last Admin: 03/01/19 03:13 Dose: 5,000 units Admin: 02/28/19 18:51 Dose: 5,000 units Admin: 02/28/19 10:56 Dose: 5,000 units Admin: 02/28/19 02:50 Dose: 5,000 units Admin: 02/27/19 20:02 Dose: 5,000 units Hydroxyzine Pamoate (Vistaril) 50 mg PO Q6H PRN PRN Reason: Anxiety Last Admin: 02/27/19 20:13 Dose: 50 mg Sodium Chloride (Normal Saline) 1,000 mls @ 200 mls/hr IV ASDIRECTED [facility] Last Admin: 03/01/19 06:24 Dose: 200 mls/hr Infusion: 03/01/19 04:40 Dose: 200 mls/hr Admin: 02/28/19 23:40 Dose: 200 mls/hr Infusion: 02/28/19 23:40 Dose: 200 mls/hr Admin: 02/28/19 19:59 Dose: 200 mls/hr Infusion: 02/28/19 19:59 Dose: 200 mls/hr Admin: 02/28/19 15:01 Dose: 200 mls/hr Infusion: 02/28/19 15:01 Dose: 200 mls/hr Admin: 02/28/19 10:04 Dose: 200 mls/hr Nicotine (Habitrol) 14 mg TRDERM DAILY [facility] Last Admin: 02/28/19 08:14 Dose: 14 mg Admin: 02/27/19 20:02 Dose: 14 mg Olanzapine (Zyprexa) 15 mg PO DAILY [facility] Last Admin: 02/28/19 08:13 Dose: 15 mg Propranolol HCl (Inderal) 20 mg PO DAILY [facility] Last Admin: 02/28/19 08:14 Dose: 20 mg Assessment/Plan Comment:: This 38 year old female admitted with rhabdomyolysis 1. Rhabdomyolysis: CPK improving this morning. Muscle pain improving as well. Will give 1 L bolus and increase IVFs to 200 ml/hr. Recheck CPK in am. Tylenol is helping with pain 2. Chronic pain: Continue Gabapentin. 3. Anxiety: Continue Vistaril. Monitor, stable. 4. Polysubstance abuse: Pending Medicaid approval for her to enter rehab facility. VE prophylaxis: Heparin Dispo: 1-2 days pending improvement.
--- NOTE | 2019-03-01 08:36 | PCM.DCSUM1 ---
<Annamarie Sheffield M - Last Filed: 03/01/19 08:31> Discharge Summary - Hospital Course Brief History: The patient is a 38-year-old lady who had presented to the emergency department out of concern for polysubstance abuse. In the emergency department the patient was noted to have mild rhabdomyolysis. The patient reportedly had similar episodes in the past. Patient says that she is pending inpatient rehabilitation for polysubstance abuse when Medicaid application is approved. The patient has had back pain. The pain does not radiate. She describes the pain is completely up and down her back. No trauma. She has this whenever she has had withdrawal symptoms and this will go away on its own. The patient also has denied any nausea or vomiting. The patient says that she has recently moved to the area. Diagnosis: Stroke: No Modified Jarrell Scale: No Symptoms at All Modified Jarrell Scale Score: 0 - Discharge Data Discharge Date: 03/01/19 Discharge Disposition: Home, Self-Care 01 Condition: Good - Discharge Diagnosis/Problem(s) (1) Rhabdomyolysis SNOMED Code(s): 418305629 ICD Code: M62.82 - RHABDOMYOLYSIS Status: Acute Priority: High Current Visit: Yes Qualifiers: Rhabdomyolysis type: non-traumatic Qualified Code(s): M62.82 - Rhabdomyolysis (2) Dehydration SNOMED Code(s): 47058835 ICD Code: E86.0 - DEHYDRATION Status: Acute Priority: High Current Visit: Yes (3) Nausea & vomiting SNOMED Code(s): 70577330 ICD Code: R11.2 - NAUSEA WITH VOMITING, UNSPECIFIED Status: Acute Priority: High Current Visit: Yes Qualifiers: Vomiting type: bilious vomiting Qualified Code(s): R11.14 - Bilious vomiting (4) UTI (urinary tract infection) SNOMED Code(s): 55281883 ICD Code: N39.0 - URINARY TRACT INFECTION, SITE NOT SPECIFIED Status: Acute Priority: High Current Visit: Yes Qualifiers: Urinary tract infection type: site unspecified Hematuria presence: without hematuria Qualified Code(s): N39.0 - Urinary tract infection, site not specified (5) Anxiety SNOMED Code(s): 06002775 ICD Code: F41.9 - ANXIETY DISORDER, UNSPECIFIED Status: Chronic Priority : High Current Visit: Yes (6) Polysubstance abuse SNOMED Code(s): 457715204 ICD Code: F19.10 - OTHER PSYCHOACTIVE SUBSTANCE ABUSE, UNCOMPLICATED Status : Chronic Priority: High Current Visit: Yes - Patient Instructions Diet: Regular Diet as Tolerated Activity: No Strenuous Activities Showering/Bathing: May Shower Notify Provider of: Fever, Increased Pain, Swelling and Redness, Drainage, Nausea and/or Vomiting - Discharge Plan *PRESCRIPTION DRUG MONITORING PROGRAM REVIEWED*: Not Applicable *COPY OF PRESCRIPTION DRUG MONITORING REPORT IN PATIENT RATNA: Not Applicable Prescriptions/Med Rec: Ciprofloxacin [Ciprofloxacin HCl] 500 mg PO BID #10 tablet Ibuprofen [Motrin] 400 mg PO Q6H PRN #1 tab PRN Reason: Pain Home Medications: Home Meds Doxepin [SINEquan] 100 mg PO BEDTIME 12/20/17 [History] Gabapentin [Neurontin] 400 mg PO BID 12/20/17 [History] Gabapentin [Neurontin] 800 mg PO BEDTIME 12/20/17 [History] OLANZapine [Olanzapine] 15 mg PO DAILY 12/20/17 [History] hydrOXYzine pamoate [Hydroxyzine Pamoate] 50 mg PO Q6H PRN 12/20/17 [History] Propranolol [Inderal] 20 mg PO DAILY 02/27/19 [History] Acetaminophen [Tylenol] 650 mg PO Q4H PRN tablet 03/01/19 [Rx] Ciprofloxacin [Ciprofloxacin HCl] 500 mg PO BID #10 tablet 03/01/19 [Rx] Ibuprofen [Motrin] 400 mg PO Q6H PRN #1 tab 03/01/19 [Rx] Patient Handouts: Rhabdomyolysis, Ibuprofen tablets and capsules, Dehydration, Adult, [id number], Ciprofloxacin tablets Referrals: [facility] [Outside] Deepti Sanches PA [Physician [employer]] - 03/08/19 1:15 pm - Discharge Summary/Plan Comment DC Time >30 min.: No Discharge Summary/Plan Comment: Discharge Diagnoses: Rhabdomyolysis- resolved UTI Polysubstance abuse Chronic pain Pascale was admitted for rhabdomyolysis. She was treated with aggressive fluid resuscitation. CPK levels dropped to 243 today from 1900. She was treated for pain, with only Tylenol due to recreational drug use. She did well with this. Noted to have UTI on admission as well and treated with Cipro BID, She will be sent with 5 more days of this as well. She is to refrain from use of recreational drug use. She is awaiting entrance into a rehabilitation center once Medicaid is approved. She is to return to ED or clinic if concerns should arise. Follow up with PCP in 1 week. - General Info Date of Service: 03/01/19 Admission Dx/Problem (Free Text: Rhabdomyolysis Subjective Update: Sleeping, awaks easily. No chest pain. Continues to have chronic pain to back. Feels ok to go home. No other concerns. Requesting again to speak with social work regarding Medicaid application. Functional Status: Reports: Tolerating Diet, Ambulating, Urinating - Review of Systems General: Reports: No Symptoms. Denies: Fever, Weakness, Fatigue Pulmonary: Reports: No Symptoms. Denies: Shortness of Breath Cardiovascular: Reports: No Symptoms. Denies: Chest Pain Gastrointestinal: Reports: No Symptoms. Denies: Abdominal Pain, Nausea, Vomiting Musculoskeletal: Reports: Back Pain (chronic) Skin: Reports: No Symptoms Neurological: Reports: No Symptoms Psychiatric: Reports: No Symptoms - Patient Data Vitals - Most Recent: Last Vital Signs Temp 98.1 F 03/01/19 03:58 Pulse 76 03/01/19 03:58 Resp 18 03/01/19 03:58 BP 125/84 03/01/19 03:58 Pulse Ox 99 03/01/19 03:58 Weight - Most Recent: 70.488 kg I&O - Last 24 hours: Intake & Output 02/28/19 03/01/19 03/01/19 22:59 06:59 14:59 Intake Total 5661 1800 Output Total 850 650 Balance 4811 1150 Lab Results - Last 24 hrs: Laboratory Results - last 24 hr 03/01/19 Range/Units 05:10 Sodium 138 (136-145) mmol/L Potassium 4.2 (3.5-5.1) mmol/L Chloride 109 H (98-107) mmol/L Carbon Dioxide 22.8 (21.0-32.0) mmol/L BUN 13 (7.0-18.0) mg/dL Creatinine 0.7 (0.6-1.0) mg/dL Est Cr Clr Drug Dosing 120.07 mL/min Estimated GFR (MDRD) > 60.0 ml/min Glucose 90 (74-106) mg/dL Calcium 7.3 L (8.5-10.1) mg/dL Total Bilirubin 0.2 (0.2-1.0) mg/dL AST 57 H (15-37) IU/L ALT 45 (14-63) IU/L Alkaline Phosphatase 59 (46-116) U/L Creatine Kinase 243 (26-308) U/L Total Protein 4.9 L (6.4-8.2) g/dL Albumin 2.2 L (3.4-5.0) g/dL Globulin 2.7 (2.6-4.0) g/dL Albumin/Globulin Ratio 0.8 L (0.9-1.6) Med Orders - Current: Current Medications Acetaminophen (Tylenol) 650 mg PO Q4H PRN PRN Reason: Pain (Mild 1-3)/fever Last Admin: 02/28/19 18:51 Dose: 650 mg Ciprofloxacin (Ciprofloxacin Hcl) 500 mg PO BID [facility] Last Admin: 02/28/19 20:05 Dose: 500 mg Docusate Sodium (Colace) 100 mg PO BID PRN PRN Reason: Constipation Doxepin HCl (Sinequan) 100 mg PO BEDTIME [facility] Last Admin: 02/28/19 20:05 Dose: 100 mg Gabapentin (Neurontin) 400 mg PO BID@0900,1400 [facility] Last Admin: 02/28/19 13:53 Dose: 400 mg Gabapentin (Neurontin) 800 mg PO BEDTIME [facility] Last Admin: 02/28/19 20:05 Dose: 800 mg Heparin Sodium (Porcine) (Heparin Sodium) 5,000 units SUBCUT Q8H [facility] Last Admin: 03/01/19 03:13 Dose: 5,000 units Hydroxyzine Pamoate (Vistaril) 50 mg PO Q6H PRN PRN Reason: Anxiety Last Admin: 02/27/19 20:13 Dose: 50 mg Sodium Chloride (Normal Saline) 1,000 mls @ 200 mls/hr IV ASDIRECTED [facility] Last Admin: 03/01/19 06:24 Dose: 200 mls/hr Nicotine (Habitrol) 14 mg TRDERM DAILY [facility] Last Admin: 02/28/19 08:14 Dose: 14 mg Olanzapine (Zyprexa) 15 mg PO DAILY [facility] Last Admin: 02/28/19 08:13 Dose: 15 mg Propranolol HCl (Inderal) 20 mg PO DAILY [facility] Last Admin: 02/28/19 08:14 Dose: 20 mg Discontinued Medications Acetaminophen (Tylenol Extra Strength) 1,000 mg PO ONETIME ONE Stop: 02/27/19 17:00 Last Admin: 02/27/19 17:17 Dose: 1,000 mg Sodium Chloride (Normal Saline) 1,000 mls @ 999 mls/hr IV STAT ONE Stop: 02/27/19 16:15 Last Admin: 02/27/19 15:48 Dose: 999 mls/hr Sodium Chloride (Normal Saline) 1,000 mls @ 999 mls/hr IV STAT ONE Stop: 02/27/19 17:43 Last Infusion: 02/27/19 17:53 Dose: 100 mls/hr Ceftriaxone Sodium/Dextrose 1 (gm/ Premix) 50 mls @ 100 mls/hr IV ONETIME ONE Stop: 02/27/19 18:12 Last Admin: 02/27/19 17:51 Dose: 100 mls/hr Sodium Chloride (Normal Saline) 1,000 mls @ 125 mls/hr IV ASDIRECTED [facility] Last Admin: 02/28/19 02:51 Dose: 125 mls/hr Sodium Chloride (Normal Saline) 1,000 mls @ 999 mls/hr IV .Bolus ONE Stop: 02/28/19 09:32 Last Admin: 02/28/19 08:58 Dose: 999 mls/hr Lorazepam (Ativan) 1 mg IVPUSH NOW STA Stop: 02/27/19 16:18 Last Admin: 02/27/19 16:22 Dose: 1 mg Ondansetron HCl (Zofran) 4 mg IVPUSH Q6H PRN PRN Reason: Nausea/Vomiting - Exam General: Reports: Alert, Oriented, Cooperative Lungs: Reports: Clear to Auscultation, Normal Respiratory Effort Cardiovascular: Reports: Regular Rate, Regular Rhythm GI/Abdominal Exam: Normal Bowel Sounds, Non-Tender, No Mass Extremities: Normal Inspection, Normal Range of Motion, Non-Tender, Other (mild puffiness noted to extremities from aggressive IV hydration.) Neurological: Reports: No New Focal Deficit Psy/Mental Status: Reports: Alert, Normal Affect, Normal Mood <Pankaj Adams - Last Filed: 03/01/19 09:26> Discharge Summary - Hospital Course HPI Initial Comments: I have seen and examined the patient independently of Annamarie Sheffield CNP. I have discussed the case with her. I have reviewed and agreed with the plan of treatment as outlined for this patient by her. Please see orders. The patient's prospects for maintaining drug-free life without inpatient rehabilitation is poor. - Discharge Diagnosis/Problem(s) (1) Rhabdomyolysis SNOMED Code(s): 211915709 ICD Code: M62.82 - RHABDOMYOLYSIS Status: Acute Priority: High Current Visit: Yes Qualifiers: Rhabdomyolysis type: non-traumatic Qualified Code(s): M62.82 - Rhabdomyolysis (2) Anxiety SNOMED Code(s): 95830293 ICD Code: F41.9 - ANXIETY DISORDER, UNSPECIFIED Status: Chronic Priority : High Current Visit: Yes (3) UTI (urinary tract infection) SNOMED Code(s): 49899463 ICD Code: N39.0 - URINARY TRACT INFECTION, SITE NOT SPECIFIED Status: Acute Priority: High Current Visit: Yes Qualifiers: Urinary tract infection type: site unspecified Hematuria presence: without hematuria Qualified Code(s): N39.0 - Urinary tract infection, site not specified (4) Nausea & vomiting SNOMED Code(s): 51470026 ICD Code: R11.2 - NAUSEA WITH VOMITING, UNSPECIFIED Status: Acute Priority: High Current Visit: Yes Qualifiers: Vomiting type: bilious vomiting Qualified Code(s): R11.14 - Bilious vomiting (5) Polysubstance abuse SNOMED Code(s): 072107226 ICD Code: F19.10 - OTHER PSYCHOACTIVE SUBSTANCE ABUSE, UNCOMPLICATED Status : Chronic Priority: High Current Visit: Yes (6) Dehydration SNOMED Code(s): 66504344 ICD Code: E86.0 - DEHYDRATION Status: Acute Priority: High Current Visit: Yes - Patient Data Vitals - Most Recent: Last Vital Signs Temp 35.5 C 03/01/19 08:08 Pulse 67 03/01/19 08:08 Resp 16 03/01/19 08:08 BP 141/74 H 03/01/19 08:08 Pulse Ox 99 03/01/19 03:58 I&O - Last 24 hours: Intake & Output 02/28/19 03/01/19 03/01/19 22:59 06:59 14:59 Intake Total 5661 1800 Output Total 850 650 Balance 4811 1150 Lab Results - Last 24 hrs: Laboratory Results - last 24 hr 03/01/19 Range/Units 05:10 Sodium 138 (136-145) mmol/L Potassium 4.2 (3.5-5.1) mmol/L Chloride 109 H (98-107) mmol/L Carbon Dioxide 22.8 (21.0-32.0) mmol/L BUN 13 (7.0-18.0) mg/dL Creatinine 0.7 (0.6-1.0) mg/dL Est Cr Clr Drug Dosing 120.07 mL/min Estimated GFR (MDRD) > 60.0 ml/min Glucose 90 (74-106) mg/dL Calcium 7.3 L (8.5-10.1) mg/dL Total Bilirubin 0.2 (0.2-1.0) mg/dL AST 57 H (15-37) IU/L ALT 45 (14-63) IU/L Alkaline Phosphatase 59 (46-116) U/L Creatine Kinase 243 (26-308) U/L Total Protein 4.9 L (6.4-8.2) g/dL Albumin 2.2 L (3.4-5.0) g/dL Globulin 2.7 (2.6-4.0) g/dL Albumin/Globulin Ratio 0.8 L (0.9-1.6) Med Orders - Current: Current Medications Acetaminophen (Tylenol) 650 mg PO Q4H PRN PRN Reason: Pain (Mild 1-3)/fever Last Admin: 02/28/19 18:51 Dose: 650 mg Ciprofloxacin (Ciprofloxacin Hcl) 500 mg PO BID [facility] Last Admin: 02/28/19 20:05 Dose: 500 mg Docusate Sodium (Colace) 100 mg PO BID PRN PRN Reason: Constipation Doxepin HCl (Sinequan) 100 mg PO BEDTIME [facility] Last Admin: 02/28/19 20:05 Dose: 100 mg Gabapentin (Neurontin) 400 mg PO BID@0900,1400 [facility] Last Admin: 02/28/19 13:53 Dose: 400 mg Gabapentin (Neurontin) 800 mg PO BEDTIME [facility] Last Admin: 02/28/19 20:05 Dose: 800 mg Heparin Sodium (Porcine) (Heparin Sodium) 5,000 units SUBCUT Q8H [facility] Last Admin: 03/01/19 03:13 Dose: 5,000 units Hydroxyzine Pamoate (Vistaril) 50 mg PO Q6H PRN PRN Reason: Anxiety Last Admin: 02/27/19 20:13 Dose: 50 mg Sodium Chloride (Normal Saline) 1,000 mls @ 200 mls/hr IV ASDIRECTED [facility] Last Admin: 03/01/19 06:24 Dose: 200 mls/hr Nicotine (Habitrol) 14 mg TRDERM DAILY [facility] Last Admin: 02/28/19 08:14 Dose: 14 mg Olanzapine (Zyprexa) 15 mg PO DAILY [facility] Last Admin: 02/28/19 08:13 Dose: 15 mg Propranolol HCl (Inderal) 20 mg PO DAILY [facility] Last Admin: 02/28/19 08:14 Dose: 20 mg Discontinued Medications Acetaminophen (Tylenol Extra Strength) 1,000 mg PO ONETIME ONE Stop: 02/27/19 17:00 Last Admin: 02/27/19 17:17 Dose: 1,000 mg Sodium Chloride (Normal Saline) 1,000 mls @ 999 mls/hr IV STAT ONE Stop: 02/27/19 16:15 Last Admin: 02/27/19 15:48 Dose: 999 mls/hr Sodium Chloride (Normal Saline) 1,000 mls @ 999 mls/hr IV STAT ONE Stop: 02/27/19 17:43 Last Infusion: 02/27/19 17:53 Dose: 100 mls/hr Ceftriaxone Sodium/Dextrose 1 (gm/ Premix) 50 mls @ 100 mls/hr IV ONETIME ONE Stop: 02/27/19 18:12 Last Admin: 02/27/19 17:51 Dose: 100 mls/hr Sodium Chloride (Normal Saline) 1,000 mls @ 125 mls/hr IV ASDIRECTED [facility] Last Admin: 02/28/19 02:51 Dose: 125 mls/hr Sodium Chloride (Normal Saline) 1,000 mls @ 999 mls/hr IV .Bolus ONE Stop: 02/28/19 09:32 Last Admin: 02/28/19 08:58 Dose: 999 mls/hr Lorazepam (Ativan) 1 mg IVPUSH NOW STA Stop: 02/27/19 16:18 Last Admin: 02/27/19 16:22 Dose: 1 mg Ondansetron HCl (Zofran) 4 mg IVPUSH Q6H PRN PRN Reason: Nausea/Vomiting
[2019-03-01 09:10] VITALS: BP 141/74
[2019-03-01] MEDS: Propranolol 20 MG Tab PO SCH (10:18)
[2019-03-01] MEDS: Ciprofloxacin 500 MG Tab PO SCH (10:18)
[2019-03-01] MEDS: OLANZapine 5 MG Tab PO SCH (10:18)
[2019-03-01] MEDS: Gabapentin 800 MG Tab PO SCH (10:19)
[2019-03-01] MEDS: Nicotine 14 MG/24 Hr Patch TRDERM SCH (10:28)
== END 2019-03-01 10:35 | disposition home or self-care (01) ==
LOC: MW.ED 14:29 → MW.MS 18:00
PROVIDERS: ADMIT Internal Medicine; ATTEND Internal Medicine
DX: M62.82 Rhabdomyolysis (principal); E86.0 Dehydration; N39.0 Urinary tract infection, site not specified; R11.14 Bilious vomiting; F19.10 Other psychoactive substance abuse, uncomplicated; F41.9 Anxiety disorder, unspecified; G89.4 Chronic pain syndrome; Z79.2 Long term (current) use of antibiotics; Z79.899 Other long term (current) drug therapy
CPT/HCPCS: 36415; 80053; 81001; 82550; 84703; 85025; 96361; 96365; 96372; 96375; 99285; A9270; G0378; J0696; J1644; J2060; J7040; 99283

== ENCOUNTER 2019-03-17 22:05 | Emergency (ER) | payer MEDICAID ==
[2019-03-17] MEDS ORDERED: Sodium Chloride 0.9% 1,000 ML IV ONE (22:22)
--- NOTE | 2019-03-17 22:25 | EDM.PDOC ---
ED HPI GENERAL MEDICAL PROBLEM - General Chief Complaint: Neurological Problem Stated Complaint: CHEST PAIN Time Seen by Provider: 03/17/19 22:24 Source of Information: Reports: Patient - History of Present Illness INITIAL COMMENTS - FREE TEXT/NARRATIVE: HISTORY AND PHYSICAL: History of present illness: [Patient with polysubstance abuse seizure disorder and medication noncompliance presents with complaint of seizure 2 today He arrives alert interactive no distress or fidgety states she has been sober from drugs for 10 days No fever nausea vomiting chills sweats no shortness breath headache dizziness palpitation no bowel or urine symptoms] Review of systems: As per history of present illness and below otherwise all systems reviewed and negative. Past medical history: As per history of present illness and as reviewed below otherwise noncontributory. Surgical history: As per history of present illness and as reviewed below otherwise noncontributory. Social history: No reported history of drug or alcohol abuse. Family history: As per history of present illness and as reviewed below otherwise noncontributory. Physical exam: HEENT: Atraumatic, normocephalic, pupils reactive, negative for conjunctival pallor or scleral icterus, mucous membranes moist, throat clear, neck supple, nontender, trachea midline. Lungs: Clear to auscultation, breath sounds equal bilaterally, chest nontender. Heart: S1S2, regular, negative for clicks, rubs, or JVD. Abdomen: Soft, nondistended, nontender. Negative for masses or hepatosplenomegaly. Negative for costovertebral tenderness. Pelvis: Stable nontender. Genitourinary: Deferred. Rectal: Deferred. Extremities: Atraumatic, negative for cords or calf pain. Neurovascular unremarkable. Neuro: Awake, alert, oriented. Cranial nerves II through XII unremarkable. Cerebellum unremarkable. Motor and sensory unremarkable throughout. Exam nonfocal. Diagnostics: [cBC CMP UA drug screen TSH Troponin EKG Chest 1 view ] Therapeutics: [ normal saline Valium 5 mg IV keppra 500 mg IV Continue medication as directed follow-up with primary care check Keppra levels ] Impression: No seizure activity here in the ER [ seizure disorder Polysubstance abuse Medication noncompliance Definitive disposition and diagnosis as appropriate pending reevaluation and review of above. Chest Pain Score (Numeric/FACES): 4 - Related Data Allergies Allergy/AdvReac Type Severity Reaction Status Date / Time ondansetron Allergy Rash Verified 03/17/19 22:08 [From Zofran (as hydrochloride)] tramadol Allergy Seizure Verified 03/17/19 22:08 Home Meds: Home Meds Doxepin [SINEquan] 100 mg PO BEDTIME 12/20/17 [History] OLANZapine [Olanzapine] 10 mg PO BEDTIME 12/20/17 [History] hydrOXYzine pamoate [Hydroxyzine Pamoate] 50 mg PO Q6H PRN 12/20/17 [History] Propranolol [Inderal] 20 mg PO DAILY 02/27/19 [History] Acetaminophen [Tylenol] 650 mg PO Q4H PRN tablet 03/01/19 [Rx] levETIRAcetam [Keppra] 250 mg PO TID 03/17/19 [History] Past Medical History HEENT History: Reports: None Cardiovascular History: Reports: Arrhythmia, Hypertension Respiratory History: Reports: PE Gastrointestinal History: Reports: None Genitourinary History: Reports: UTI, Recurrent RESOURCE COORDINATOR History: Reports: Other RESOURCE COORDINATOR History: Ovarian cyst Musculoskeletal History: Reports: Neck Pain, Chronic Neurological History: Reports: Seizure, Other (See Below) Other Neuro History: epilepsy Psychiatric History: Reports: Anxiety, Depression Endocrine/Metabolic History: Reports: None Hematologic History: Reports: Other (See Below) Other Hematologic History: clotting disorder Immunologic History: Reports: None Oncologic (Cancer) History: Reports: None Dermatologic History: Reports: None - Infectious Disease History Infectious Disease History: Reports: Chicken Pox, Hepatitis C, MRSA - Past Surgical History Female Surgical History: Reports: Section, D&C, Tubal Ligation Social & Family History - Family History Family Medical History: Noncontributory Psychiatric: Reports: Anxiety, Depression, Emotional Problems - Tobacco Use Smoking Status *Q: Current Some Day Smoker Years of Tobacco use: 10 Packs/Tins Daily: 1 - Caffeine Use Caffeine Use: Reports: Coffee - Recreational Drug Use Recreational Drug Type: Reports: Heroin, Methamphetamine Other Recreational Drug Type: working on quitting - Living Situation & Occupation Living situation: Reports: with Spouse ED ROS GENERAL - Review of Systems Review Of Systems: See Below ED EXAM, GENERAL - Physical Exam Exam: See Below Course - Vital Signs Last Recorded V/S: Last Vital Signs Temp 96.7 F 03/17/19 22:06 Pulse 84 03/17/19 22:06 Resp BP 128/68 03/17/19 22:06 Pulse Ox 98 03/17/19 22:06 - Orders/Labs/Meds Orders: Active Orders 24 hr Category Date Time Status EKG Documentation Completion [RC] STAT Care 03/17/19 22:22 Active DRUG SCREEN, URINE [URCHEM] Stat Lab 03/17/19 22:23 Ordered UA RFX KRYSTEN AND CULT IF INDIC [URIN] Stat Lab 03/17/19 22:22 Ordered Labs: Laboratory Tests 03/17/19 03/17/19 03/17/19 Range/Units 22:17 22:17 22:19 WBC 10.47 (4.0-11.0) K/uL RBC 4.35 (4.30-5.90) M/uL Hgb 12.7 (12.0-16.0) g/dL Hct 38.9 (36.0-46.0) % MCV 89.4 (80.0-98.0) fL MCH 29.2 (27.0-32.0) pg MCHC 32.6 (31.0-37.0) g/dL RDW Std Deviation 48.2 (28.0-62.0) fl RDW Coeff of Michelle 15 (11.0-15.0) % Plt Count 373 (150-400) K/uL MPV 10.10 (7.40-12.00) fL Neut % (Auto) 53.7 (48.0-80.0) % Lymph % (Auto) 33.9 (16.0-40.0) % [place] % (Auto) 9.9 (0.0-15.0) % Eos % (Auto) 1.8 (0.0-7.0) % Baso % (Auto) 0.7 (0.0-1.5) % Neut # (Auto) 5.6 (1.4-5.7) K/uL Lymph # (Auto) 3.6 H (0.6-2.4) K/uL [place] # (Auto) 1.0 H (0.0-0.8) K/uL Eos # (Auto) 0.2 (0.0-0.7) K/uL Baso # (Auto) 0.1 (0.0-0.1) K/uL Nucleated RBC % 0.0 /100WBC Nucleated RBCs # 0 K/uL Sodium 139 (136-145) mmol/L Potassium 4.1 (3.5-5.1) mmol/L Chloride 104 (98-107) mmol/L Carbon Dioxide 27.0 (21.0-32.0) mmol/L BUN 24 H (7.0-18.0) mg/dL Creatinine 1.0 (0.6-1.0) mg/dL Est Cr Clr Drug Dosing TNP Estimated GFR (MDRD) > 60.0 ml/min Glucose 62 L (74-106) mg/dL POC Glucose 69 (60-110) mg/dL Calcium 9.6 (8.5-10.1) mg/dL Total Bilirubin 0.5 (0.2-1.0) mg/dL AST 49 H (15-37) IU/L ALT 44 (14-63) IU/L Alkaline Phosphatase 67 (46-116) U/L Troponin I < 0.050 (0.000-0.056) ng/mL Total Protein 7.9 (6.4-8.2) g/dL Albumin 4.2 (3.4-5.0) g/dL Globulin 3.7 (2.6-4.0) g/dL Albumin/Globulin Ratio 1.1 (0.9-1.6) TSH 3rd Generation 4.99 H (0.36-3.74) uIU/mL Meds: Medications Discontinued Medications Generic Name Dose Route Start Last Admin Trade Name Freq PRN Reason Stop Dose Admin Diazepam 5 mg 03/17/19 22:23 03/17/19 22:41 Valium IVPUSH 03/17/19 22:24 Not Given ONETIME ONE Diazepam Confirm 03/17/19 22:31 03/17/19 22:39 Valium Administered 03/17/19 22:32 5 mg Dose Administration 5 mg .ROUTE .STK-MED ONE Diazepam 5 mg 03/17/19 22:36 03/17/19 22:41 Valium IVPUSH 03/17/19 22:37 Not Given ONETIME ONE Levetiracetam 500 mg/ Dextrose 105 mls @ 420 mls/hr 03/17/19 22:22 03/17/19 22:43 /Water IV 03/17/19 22:36 420 mls/hr NOW STA Administration Sodium Chloride 1,000 mls @ 999 mls/hr 03/17/19 22:22 03/17/19 22:35 Normal Saline IV 03/17/19 23:22 999 mls/hr STAT ONE Administration Departure - Departure Time of Disposition: 23:42 Disposition: Home, Self-Care 01 Condition: Good Clinical Impression: Seizure disorder, Substance abuse - Discharge Information Forms: ED Department Discharge Additional Instructions: The following information is given to patients seen in the emergency department who are being discharged to home. This information is to outline your options for follow-up care. We provide all patients seen in our emergency department with a follow-up referral. The need for follow-up, as well as the timing and circumstances, are variable depending upon the specifics of your emergency department visit. If you don't have a primary care physician on staff, we will provide you with a referral. We always advise you to contact your personal physician following an emergency department visit to inform them of the circumstance of the visit and for follow-up with them and/or the need for any referrals to a consulting specialist. The emergency department will also refer you to a specialist when appropriate. This referral assures that you have the opportunity for follow-up care with a specialist. All of these measure are taken in an effort to provide you with optimal care, which includes your follow-up. Under all circumstances we always encourage you to contact your private physician who remains a resource for coordinating your care. When calling for follow-up care, please make the office aware that this follow-up is from your recent emergency room visit. If for any reason you are refused follow-up, please contact the [facility] emergency department at and asked to speak to the emergency department charge nurse. - My Orders Last 24 Hours: My Active Orders 03/17/19 22:22 EKG Documentation Completion [RC] STAT UA RFX KRYSTEN AND CULT IF INDIC [URIN] Stat 03/17/19 22:23 DRUG SCREEN, URINE [URCHEM] Stat - Assessment/Plan Last 24 Hours: My Active Orders 03/17/19 22:22 EKG Documentation Completion [RC] STAT UA RFX KRYSTEN AND CULT IF INDIC [URIN] Stat 03/17/19 22:23 DRUG SCREEN, URINE [URCHEM] Stat
[2019-03-17] MEDS ORDERED: diazePAM 5 MG/ML MDV ONE (22:31)
[2019-03-17 23:02] LABS: CHLORIDE,CL 104 mmol/L (98-107); SODIUM,NA 139 mmol/L (136-145)
--- NOTE | 2019-03-17 23:23 | CR ---
Indication: Pain Technique: Chest 1 view. Comparison: None Findings: Cardiovascular and mediastinum: Heart size and vasculature are normal in caliber and appearance. Mediastinum is within normal limits. Lungs and pleural space: Lungs are clear. No sign of infiltrate or mass. No sign of pleural effusion. No pneumothorax. Bones and soft tissues: No significant findings. Impression: No sign of acute disease. Dictated by Krysten Fierro MD @ Mar 17 2019 11:22PM Signed by Dr. Krysten Fierro @ Mar 17 2019 11:22PM
[2019-03-18] MEDS ORDERED: Promethazine 25 MG/ML SDV IM ONE (00:02)
[2019-03-18] MEDS ORDERED: Promethazine 25 MG/ML SDV ONE (00:04)
[2019-03-18 00:34] VITALS: BP 93/48
== END 2019-03-18 00:13 | disposition home or self-care (01) ==
LOC: MW.ED 22:05
DX: G40.909 Epilepsy, unspecified, not intractable, without status epilepticus (principal); F19.10 Other psychoactive substance abuse, uncomplicated; I10 Essential (primary) hypertension; F17.210 Nicotine dependence, cigarettes, uncomplicated; Z88.8 Allergy status to other drugs, medicaments and biological substances; Z88.6 Allergy status to analgesic agent; Z79.899 Other long term (current) drug therapy
CPT/HCPCS: 36415; 71045; 80053; 82962; 84443; 84484; 85025; 93005; 96361; 96372; 96374; 99284; A9270; J1953; J2550; J7040; J7060

== ENCOUNTER 2019-04-08 19:07 | Emergency (ER) | payer MEDICAID, OTHER ==
[2019-04-08] MEDS ORDERED: Aspirin 325 MG Tab PO ONE (19:10)
--- NOTE | 2019-04-08 19:12 | EDM.PDOC ---
ED HPI GENERAL MEDICAL PROBLEM - General Chief Complaint: Cardiovascular Problem Stated Complaint: CHEST PAIN Time Seen by Provider: 04/08/19 19:08 - History of Present Illness INITIAL COMMENTS - FREE TEXT/NARRATIVE: HISTORY AND PHYSICAL: History of present illness: Patient 38-year-old white female presents with concern of anxiety. Patient has history of substance abuse and anxiety and presents for evaluation. Patient complains of anxiety chest pain shortness of breath. Review of systems: As per history of present illness and below otherwise all systems reviewed and negative. Past medical history: As per history of present illness and as reviewed below otherwise noncontributory. Surgical history: As per history of present illness and as reviewed below otherwise noncontributory. Social history: No reported history of drug or alcohol abuse. Family history: As per history of present illness and as reviewed below otherwise noncontributory. Physical exam: HEENT: Atraumatic, normocephalic, pupils reactive, negative for conjunctival pallor or scleral icterus, mucous membranes moist, throat clear, neck supple, nontender, trachea midline. Lungs: Clear to auscultation, breath sounds equal bilaterally, chest nontender. Heart: S1S2, regular, negative for clicks, rubs, or JVD. Abdomen: Soft, nondistended, nontender. Negative for masses or hepatosplenomegaly. Negative for costovertebral tenderness. Pelvis: Stable nontender. Genitourinary: Deferred. Rectal: Deferred. Extremities: Atraumatic, negative for cords or calf pain. Neurovascular unremarkable. Neuro: Awake, alert, oriented. Cranial nerves II through XII unremarkable. Cerebellum unremarkable. Motor and sensory unremarkable throughout. Exam nonfocal. Diagnostics: Chest x-ray EKG Therapeutics: None Impression: #1 anxiety #2 history of substance abuse #3 atypical chest pain number for medical screening exam Definitive disposition and diagnosis as appropriate pending reevaluation and review of above. no pain Pain Score (Numeric/FACES): 0 - Related Data Allergies Allergy/AdvReac Type Severity Reaction Status Date / Time ondansetron Allergy Rash Verified 04/08/19 19:16 [From Zofran (as hydrochloride)] tramadol Allergy Seizure Verified 04/08/19 19:16 Home Meds: Home Meds Doxepin [SINEquan] 100 mg PO BEDTIME 12/20/17 [History] OLANZapine [Olanzapine] 10 mg PO BEDTIME 12/20/17 [History] hydrOXYzine pamoate [Hydroxyzine Pamoate] 50 mg PO Q6H PRN 12/20/17 [History] Propranolol [Inderal] 20 mg PO DAILY 02/27/19 [History] Acetaminophen [Tylenol] 650 mg PO Q4H PRN tablet 03/01/19 [Rx] levETIRAcetam [Keppra] 250 mg PO TID 03/17/19 [History] Past Medical History HEENT History: Reports: None Cardiovascular History: Reports: Arrhythmia, Hypertension Respiratory History: Reports: PE Gastrointestinal History: Reports: None Genitourinary History: Reports: UTI, Recurrent RECRUITING INTERN History: Reports: Other RECRUITING INTERN History: Ovarian cyst Musculoskeletal History: Reports: Neck Pain, Chronic Neurological History: Reports: Seizure, Other (See Below) Other Neuro History: epilepsy Psychiatric History: Reports: Anxiety, Depression Endocrine/Metabolic History: Reports: None Hematologic History: Reports: Other (See Below) Other Hematologic History: clotting disorder Immunologic History: Reports: None Oncologic (Cancer) History: Reports: None Dermatologic History: Reports: None - Infectious Disease History Infectious Disease History: Reports: Chicken Pox, Hepatitis C, MRSA - Past Surgical History Female Surgical History: Reports: Section, D&C, Tubal Ligation Social & Family History - Family History Family Medical History: Noncontributory Psychiatric: Reports: Anxiety, Depression, Emotional Problems - Caffeine Use Caffeine Use: Reports: Coffee - Living Situation & Occupation Living situation: Reports: with Spouse ED ROS GENERAL - Review of Systems Review Of Systems: ROS reveals no pertinent complaints other than HPI. ED EXAM, GENERAL - Physical Exam Exam: See Below (Dictation) Course - Vital Signs Last Recorded V/S: Last Vital Signs Temp 36.6 C 04/08/19 19:16 Pulse 116 H 04/08/19 19:16 Resp 18 04/08/19 19:16 BP 169/101 H 04/08/19 19:16 Pulse Ox 100 04/08/19 19:16 - Orders/Labs/Meds Orders: Active Orders 24 hr Category Date Time Status CULTURE URINE [RM] Stat Lab 04/08/19 19:20 Received Labs: Laboratory Tests 04/08/19 04/08/19 04/08/19 Range/Units 19:20 19:20 19:25 WBC 6.08 (4.0-11.0) K/uL RBC 4.52 (4.30-5.90) M/uL Hgb 13.4 (12.0-16.0) g/dL Hct 40.2 (36.0-46.0) % MCV 88.9 (80.0-98.0) fL MCH 29.6 (27.0-32.0) pg MCHC 33.3 (31.0-37.0) g/dL RDW Std Deviation 47.3 (28.0-62.0) fl RDW Coeff of Michelle 15 (11.0-15.0) % Plt Count 291 (150-400) K/uL MPV 10.20 (7.40-12.00) fL Neut % (Auto) 38.6 L (48.0-80.0) % Lymph % (Auto) 49.7 H (16.0-40.0) % [place] % (Auto) 8.9 (0.0-15.0) % Eos % (Auto) 2.0 (0.0-7.0) % Baso % (Auto) 0.8 (0.0-1.5) % Neut # (Auto) 2.4 (1.4-5.7) K/uL Lymph # (Auto) 3.0 H (0.6-2.4) K/uL [place] # (Auto) 0.5 (0.0-0.8) K/uL Eos # (Auto) 0.1 (0.0-0.7) K/uL Baso # (Auto) 0.1 (0.0-0.1) K/uL Nucleated RBC % 0.0 /100WBC Nucleated RBCs # 0 K/uL Sodium (136-145) mmol/L Potassium (3.5-5.1) mmol/L Chloride (98-107) mmol/L Carbon Dioxide (21.0-32.0) mmol/L BUN (7.0-18.0) mg/dL Creatinine (0.6-1.0) mg/dL Est Cr Clr Drug Dosing mL/min Estimated GFR (MDRD) ml/min Glucose (74-106) mg/dL Calcium (8.5-10.1) mg/dL Total Bilirubin (0.2-1.0) mg/dL AST (15-37) IU/L ALT (14-63) IU/L Alkaline Phosphatase (46-116) U/L Creatine Kinase (26-308) U/L Troponin I (0.000-0.056) ng/mL Total Protein (6.4-8.2) g/dL Albumin (3.4-5.0) g/dL Globulin (2.6-4.0) g/dL Albumin/Globulin Ratio (0.9-1.6) Urine Color YELLOW Urine Appearance CLEAR Urine pH 6.0 (5.0-8.0) Ur Specific Pegram <= 1.005 (1.001-1.035) Urine Protein NEGATIVE (NEGATIVE) mg/dL Urine Glucose (UA) NEGATIVE (NEGATIVE) mg/dL Urine Ketones NEGATIVE (NEGATIVE) mg/dL Urine Occult Blood NEGATIVE (NEGATIVE) Urine Nitrite POSITIVE H (NEGATIVE) Urine Bilirubin NEGATIVE (NEGATIVE) Urine Urobilinogen 0.2 (<2.0) EU/dL Ur Leukocyte Esterase NEGATIVE (NEGATIVE) Urine RBC NONE SEEN (0-2/HPF) Urine WBC 0-1 (0-5/HPF) Ur Epithelial Cells RARE (NONE-FEW) Urine Bacteria FEW (NEGATIVE) Urine Mucus LIGHT (NONE-MOD) Urine Opiates Screen NEGATIVE (NEGATIVE) Ur Oxycodone Screen NEGATIVE (NEGATIVE) Urine Methadone Screen NEGATIVE (NEGATIVE) Ur Barbiturates Screen NEGATIVE (NEGATIVE) Ur Phencyclidine Scrn NEGATIVE (NEGATIVE) Ur Amphetamine Screen NEGATIVE (NEGATIVE) U Methamphetamines Scrn NEGATIVE (NEGATIVE) U Benzodiazepines Scrn NEGATIVE (NEGATIVE) U Cocaine Metab Screen NEGATIVE (NEGATIVE) U Marijuana (THC) Screen NEGATIVE (NEGATIVE) 04/08/19 Range/Units 19:25 WBC (4.0-11.0) K/uL RBC (4.30-5.90) M/uL Hgb (12.0-16.0) g/dL Hct (36.0-46.0) % MCV (80.0-98.0) fL MCH (27.0-32.0) pg MCHC (31.0-37.0) g/dL RDW Std Deviation (28.0-62.0) fl RDW Coeff of Michelle (11.0-15.0) % Plt Count (150-400) K/uL MPV (7.40-12.00) fL Neut % (Auto) (48.0-80.0) % Lymph % (Auto) (16.0-40.0) % [place] % (Auto) (0.0-15.0) % Eos % (Auto) (0.0-7.0) % Baso % (Auto) (0.0-1.5) % Neut # (Auto) (1.4-5.7) K/uL Lymph # (Auto) (0.6-2.4) K/uL [place] # (Auto) (0.0-0.8) K/uL Eos # (Auto) (0.0-0.7) K/uL Baso # (Auto) (0.0-0.1) K/uL Nucleated RBC % /100WBC Nucleated RBCs # K/uL Sodium 137 (136-145) mmol/L Potassium 3.9 (3.5-5.1) mmol/L Chloride 102 (98-107) mmol/L Carbon Dioxide 26.8 (21.0-32.0) mmol/L BUN 10 (7.0-18.0) mg/dL Creatinine 0.9 (0.6-1.0) mg/dL Est Cr Clr Drug Dosing 87.14 mL/min Estimated GFR (MDRD) > 60.0 ml/min Glucose 107 H (74-106) mg/dL Calcium 9.1 (8.5-10.1) mg/dL Total Bilirubin 0.3 (0.2-1.0) mg/dL AST 48 H (15-37) IU/L ALT 45 (14-63) IU/L Alkaline Phosphatase 85 (46-116) U/L Creatine Kinase 303 (26-308) U/L Troponin I < 0.050 (0.000-0.056) ng/mL Total Protein 7.8 (6.4-8.2) g/dL Albumin 4.0 (3.4-5.0) g/dL Globulin 3.8 (2.6-4.0) g/dL Albumin/Globulin Ratio 1.1 (0.9-1.6) Urine Color Urine Appearance Urine pH (5.0-8.0) Ur Specific [place]gram (1.001-1.035) Urine Protein (NEGATIVE) mg/dL Urine Glucose (UA) (NEGATIVE) mg/dL Urine Ketones (NEGATIVE) mg/dL Urine Occult Blood (NEGATIVE) Urine Nitrite (NEGATIVE) Urine Bilirubin (NEGATIVE) Urine Urobilinogen (<2.0) EU/dL Ur Leukocyte Esterase (NEGATIVE) Urine RBC (0-2/HPF) Urine WBC (0-5/HPF) Ur Epithelial Cells (NONE-FEW) Urine Bacteria (NEGATIVE) Urine Mucus (NONE-MOD) Urine Opiates Screen (NEGATIVE) Ur Oxycodone Screen (NEGATIVE) Urine Methadone Screen (NEGATIVE) Ur Barbiturates Screen (NEGATIVE) Ur Phencyclidine Scrn (NEGATIVE) Ur Amphetamine Screen (NEGATIVE) U Methamphetamines Scrn (NEGATIVE) U Benzodiazepines Scrn (NEGATIVE) U Cocaine Metab Screen (NEGATIVE) U Marijuana (THC) Screen (NEGATIVE) Meds: Medications Discontinued Medications Generic Name Dose Route Start Last Admin Trade Name Freq PRN Reason Stop Dose Admin Aspirin 325 mg 04/08/19 19:10 04/08/19 19:21 Aspirin PO 04/08/19 19:11 325 mg ONETIME ONE Administration Aspirin 325 mg 04/09/19 09:00 Ecotrin PO DAILY BRANDEN Departure - Departure Time of Disposition: 18:19 Disposition: Eloped 07 Condition: Undetermined Clinical Impression: Anxiety Referrals: PCP,None [Primary Care Provider] - Forms: ED Department Discharge - My Orders Last 24 Hours: My Active Orders 04/08/19 19:20 CULTURE URINE [RM] Stat - Assessment/Plan Last 24 Hours: My Active Orders 04/08/19 19:20 CULTURE URINE [RM] Stat
[2019-04-08 19:18] VITALS: BP 169/101
--- NOTE | 2019-04-08 20:00 | CR ---
HISTORY: Chest pain. TECHNIQUE: Portable frontal view the chest. COMPARISON: Chest x-ray 03/17/2019. FINDINGS: No airspace consolidation. No pleural effusion or pneumothorax. Pulmonary vasculature and cardiomediastinal silhouette are within normal limits. IMPRESSION: No cardiopulmonary abnormality. No change from 03/17/2019. Dictated by Simon Jones MD @ Apr 08 2019 7:57PM Signed by Dr. Simon Jones @ Apr 08 2019 7:58PM
[2019-04-08 20:09] LABS: CHLORIDE,CL 102 mmol/L (98-107); SODIUM,NA 137 mmol/L (136-145)
[2019-04-09] MEDS ORDERED: Aspirin 325 MG Tab.EC PO SCH (09:00)
== END 2019-04-08 20:00 | disposition left against medical advice (07) ==
LOC: MW.ED 19:07
DX: R07.89 Other chest pain (principal); F41.9 Anxiety disorder, unspecified; I10 Essential (primary) hypertension; F19.10 Other psychoactive substance abuse, uncomplicated; Z88.8 Allergy status to other drugs, medicaments and biological substances; Z88.5 Allergy status to narcotic agent; Z79.899 Other long term (current) drug therapy
CPT/HCPCS: 36415; 71045; 80053; 80305; 81001; 82550; 84484; 85025; 87086; 99285; A9270; 93005

== ENCOUNTER 2019-09-04 10:57 | Emergency (ER) | payer SELFPAY ==
[2019-09-04] MEDS ORDERED: Sodium Chloride 0.9% 10 ML Syringe FLUSH PRN (11:13)
[2019-09-04] MEDS ORDERED: Sodium Chloride 0.9% 2.5 ML Syringe FLUSH PRN (11:13)
[2019-09-04] MEDS ORDERED: Sodium Chloride 0.9% 1,000 ML IV ONE (11:13)
--- NOTE | 2019-09-04 11:15 | EDM.PDOC ---
ED HPI GENERAL MEDICAL PROBLEM - General Chief Complaint: Neuro Symptoms/Deficits Stated Complaint: EPILEPSY Time Seen by Provider: 09/04/19 11:15 Source of Information: Reports: Patient History Limitations: Reports: No Limitations - History of Present Illness INITIAL COMMENTS - FREE TEXT/NARRATIVE: HISTORY AND PHYSICAL: History of present illness: Patient is a 39-year-old female presents to the ED with altered mental status. Patient was brought to the ED by house officer due to her AMS. Patient has no complaints at this time. Past medical history of polysubstance abuse and seizure disorder. Patient and at bedside states that this is patient's usual behavior due to her history of seizure disorder. Patient is alert and oriented. Review of systems: As per history of present illness and below otherwise all systems reviewed and negative. Past medical history: As per history of present illness and as reviewed below otherwise noncontributory. Surgical history: As per history of present illness and as reviewed below otherwise noncontributory. Social history: No reported history of drug or alcohol abuse. Family history: As per history of present illness and as reviewed below otherwise noncontributory. Physical exam: General: Patient sitting comfortably in no acute distress and nontoxic appearing HEENT: Atraumatic, normocephalic, pupils reactive, negative for conjunctival pallor or scleral icterus, mucous membranes moist, throat clear, neck supple, nontender, trachea midline. No meningeal signs. Lungs: Clear to auscultation, breath sounds equal bilaterally, chest nontender. Heart: S1S2, regular, negative for clicks, rubs, or overt murmur. Abdomen: Soft, nondistended, nontender. Negative for masses or hepatosplenomegaly. Negative for costovertebral tenderness. No rigidity, rebound , guarding. Pelvis: Stable nontender. Genitourinary: Deferred. Rectal: Deferred. Extremities: Atraumatic, negative for cords or calf pain. Neurovascular unremarkable. Neuro: Awake, alert, oriented. Cranial nerves II through XII unremarkable. Cerebellum unremarkable. Motor and sensory unremarkable throughout. Exam nonfocal. Notes: Dr. Forte involved in care of patient. Diagnostics: CBC, CMP, etoh, UDS, UA, CXR, head CT Therapeutics: 1L NS IV Prescriptions: Impression: Medical screening exam Plan: Follow up with primary care provider return to ED as needed as discussed Definitive disposition and diagnosis as appropriate pending reevaluation and review of above. Lower Back Pain Score (Numeric/FACES): 3 - Related Data Allergies Allergy/AdvReac Type Severity Reaction Status Date / Time ondansetron Allergy Rash Verified 09/04/19 11:24 [From Zofran (as hydrochloride)] tramadol Allergy Seizure Verified 09/04/19 11:24 Home Meds: Home Meds Doxepin [SINEquan] 100 mg PO BEDTIME 12/20/17 [History] OLANZapine [Olanzapine] 10 mg PO BEDTIME 12/20/17 [History] hydrOXYzine pamoate [Hydroxyzine Pamoate] 50 mg PO Q6H PRN 12/20/17 [History] Propranolol [Inderal] 20 mg PO DAILY 02/27/19 [History] Acetaminophen [Tylenol] 650 mg PO Q4H PRN tablet 03/01/19 [Rx] levETIRAcetam [Keppra] 250 mg PO TID 03/17/19 [History] Past Medical History HEENT History: Reports: None Cardiovascular History: Reports: Arrhythmia, Hypertension Respiratory History: Reports: PE Gastrointestinal History: Reports: None Genitourinary History: Reports: UTI, Recurrent [employer] History: Reports: Other [employer] History: Ovarian cyst Musculoskeletal History: Reports: Neck Pain, Chronic Neurological History: Reports: Seizure, Other (See Below) Other Neuro History: epilepsy Psychiatric History: Reports: Anxiety, Depression Endocrine/Metabolic History: Reports: None Hematologic History: Reports: Other (See Below) Other Hematologic History: clotting disorder Immunologic History: Reports: None Oncologic (Cancer) History: Reports: None Dermatologic History: Reports: None - Infectious Disease History Infectious Disease History: Reports: Chicken Pox, Hepatitis C, MRSA - Past Surgical History Female Surgical History: Reports: Section, D&C, Tubal Ligation Social & Family History - Family History Family Medical History: Noncontributory Psychiatric: Reports: Anxiety, Depression, Emotional Problems - Caffeine Use Caffeine Use: Reports: Coffee - Living Situation & Occupation Living situation: Reports: with Spouse ED ROS GENERAL - Review of Systems Review Of Systems: ROS reveals no pertinent complaints other than HPI. - Physical Exam Exam: See Below (see dictation) Course - Vital Signs Last Recorded V/S: Last Vital Signs Temp 96.2 F 09/04/19 11:14 Pulse 91 09/04/19 11:14 Resp 18 09/04/19 11:14 BP 136/89 09/04/19 11:14 Pulse Ox 97 09/04/19 11:14 - Orders/Labs/Meds Orders: Active Orders 24 hr Category Date Time Status EKG Documentation Completion [RC] STAT Care 09/04/19 11:12 Active DRUG SCREEN, URINE [URCHEM] Stat Lab 09/04/19 11:13 Ordered UA RFX KRYSTEN AND CULT IF INDIC [URIN] Stat Lab 09/04/19 11:12 Ordered Sodium Chloride 0.9% [Saline Flush] Med 09/04/19 11:13 Active 10 ml FLUSH ASDIRECTED PRN Sodium Chloride 0.9% [Saline Flush] Med 09/04/19 11:13 Active 2.5 ml FLUSH ASDIRECTED PRN Saline Lock Insert [OM.PC] Stat Oth 09/04/19 11:12 Ordered Medication Orders Sodium Chloride (Saline Flush) 10 ml FLUSH ASDIRECTED PRN PRN Reason: Keep Vein Open Sodium Chloride (Saline Flush) 2.5 ml FLUSH ASDIRECTED PRN PRN Reason: Keep Vein Open Labs: Laboratory Tests 09/04/19 09/04/19 Range/Units 11:49 11:49 WBC 7.16 (4.0-11.0) K/uL RBC 4.33 (4.30-5.90) M/uL Hgb 13.5 (12.0-16.0) g/dL Hct 38.9 (36.0-46.0) % MCV 89.8 (80.0-98.0) fL MCH 31.2 (27.0-32.0) pg MCHC 34.7 (31.0-37.0) g/dL RDW Std Deviation 42.2 (28.0-62.0) fl RDW Coeff of Michelle 13 (11.0-15.0) % Plt Count 291 (150-400) K/uL MPV 10.20 (7.40-12.00) fL Neut % (Auto) 44.0 L (48.0-80.0) % Lymph % (Auto) 40.8 H (16.0-40.0) % Lynn % (Auto) 11.5 (0.0-15.0) % Eos % (Auto) 2.9 (0.0-7.0) % Baso % (Auto) 0.8 (0.0-1.5) % Neut # (Auto) 3.2 (1.4-5.7) K/uL Lymph # (Auto) 2.9 H (0.6-2.4) K/uL Lynn # (Auto) 0.8 (0.0-0.8) K/uL Eos # (Auto) 0.2 (0.0-0.7) K/uL Baso # (Auto) 0.1 (0.0-0.1) K/uL Nucleated RBC % 0.0 /100WBC Nucleated RBCs # 0 K/uL Sodium 138 (136-145) mmol/L Potassium 4.0 (3.5-5.1) mmol/L Chloride 103 (98-107) mmol/L Carbon Dioxide 25.0 (21.0-32.0) mmol/L BUN 10 (7.0-18.0) mg/dL Creatinine 1.0 (0.6-1.0) mg/dL Est Cr Clr Drug Dosing 80.87 mL/min Estimated GFR (MDRD) > 60.0 ml/min Glucose 111 H (74-106) mg/dL Calcium 9.0 (8.5-10.1) mg/dL Total Bilirubin 0.4 (0.2-1.0) mg/dL AST 69 H (15-37) IU/L ALT 52 (14-63) IU/L Alkaline Phosphatase 80 (46-116) U/L Total Protein 8.1 (6.4-8.2) g/dL Albumin 4.1 (3.4-5.0) g/dL Globulin 4.0 (2.6-4.0) g/dL Albumin/Globulin Ratio 1.0 (0.9-1.6) Ethyl Alcohol < 3.0 mg/dL Meds: Medications Generic Name Dose Route Start Last Admin Trade Name Freq PRN Reason Stop Dose Admin Sodium Chloride 10 ml 09/04/19 11:13 Saline Flush FLUSH ASDIRECTED PRN Keep Vein Open Sodium Chloride 2.5 ml 09/04/19 11:13 Saline Flush FLUSH ASDIRECTED PRN Keep Vein Open Discontinued Medications Generic Name Dose Route Start Last Admin Trade Name Freq PRN Reason Stop Dose Admin Sodium Chloride 1,000 mls @ 999 mls/hr 09/04/19 11:13 09/04/19 11:49 Normal Saline IV 09/04/19 12:13 999 mls/hr STAT ONE Administration Departure - Departure Time of Disposition: 12:37 Disposition: Home, Self-Care 01 Condition: Good Clinical Impression: Encounter for medical screening examination - Discharge Information Instructions: Medical Screening Exam Referrals: PCP,Unknown [Primary Care Provider] - Forms: ED Department Discharge Additional Instructions: The following information is given to patients seen in the emergency department who are being discharged to home. This information is to outline your options for follow-up care. We provide all patients seen in our emergency department with a follow-up referral. The need for follow-up, as well as the timing and circumstances, are variable depending upon the specifics of your emergency department visit. If you don't have a primary care physician on staff, we will provide you with a referral. We always advise you to contact your personal physician following an emergency department visit to inform them of the circumstance of the visit and for follow-up with them and/or the need for any referrals to a consulting specialist. The emergency department will also refer you to a specialist when appropriate. This referral assures that you have the opportunity for follow-up care with a specialist. All of these measure are taken in an effort to provide you with optimal care, which includes your follow-up. Under all circumstances we always encourage you to contact your private physician who remains a resource for coordinating your care. When calling for follow-up care, please make the office aware that this follow-up is from your recent emergency room visit. If for any reason you are refused follow-up, please contact the [facility] Department at and asked to speak to the emergency department charge nurse. [facility] [address] [place] [address] [facility] [address] [place] [phone] Follow up with primary care provider Return to ED as needed as discussed - My Orders Last 24 Hours: My Active Orders 09/04/19 11:12 EKG Documentation Completion [RC] STAT UA RFX KRYSTEN AND CULT IF INDIC [URIN] Stat Saline Lock Insert [OM.PC] Stat 09/04/19 11:13 DRUG SCREEN, URINE [URCHEM] Stat Sodium Chloride 0.9% [Saline Flush] 10 ml FLUSH ASDIRECTED PRN Sodium Chloride 0.9% [Saline Flush] 2.5 ml FLUSH ASDIRECTED PRN - Assessment/Plan Last 24 Hours: My Active Orders 09/04/19 11:12 EKG Documentation Completion [RC] STAT UA RFX KRYSTEN AND CULT IF INDIC [URIN] Stat Saline Lock Insert [OM.PC] Stat 09/04/19 11:13 DRUG SCREEN, URINE [URCHEM] Stat Sodium Chloride 0.9% [Saline Flush] 10 ml FLUSH ASDIRECTED PRN Sodium Chloride 0.9% [Saline Flush] 2.5 ml FLUSH ASDIRECTED PRN
[2019-09-04 12:25] LABS: BLOOD UREA NITROGEN,BUN 10 mg/dL (7.0-18.0); CHLORIDE,CL 103 mmol/L (98-107); GLUCOSE RANDOM 111 mg/dL (74-106); SODIUM,NA 138 mmol/L (136-145)
--- NOTE | 2019-09-04 12:26 | CR ---
INDICATION: pain/shortness of breath TECHNIQUE: Chest 1 view. COMPARISON: 04/08/19 FINDINGS: Cardiovascular and mediastinum: Heart size and vasculature are normal in caliber and appearance. Mediastinum is within normal limits. Lungs and pleural space: Lungs are clear. No sign of infiltrate or mass. No sign of pleural effusion. No pneumothorax. Bones and soft tissues: No significant findings. IMPRESSION: Unremarkable chest. Dictated by: Keven Miranda MD @ 09/04/2019 12:25:56 (Electronically Signed)
[2019-09-04 13:31] VITALS: BP 112/70; PULSE 79
== END 2019-09-04 13:15 | disposition home or self-care (01) ==
LOC: MW.ED 10:57
DX: Z13.9 Encounter for screening, unspecified (principal); G40.909 Epilepsy, unspecified, not intractable, without status epilepticus; I10 Essential (primary) hypertension; F41.9 Anxiety disorder, unspecified; F32.9 Major depressive disorder, single episode, unspecified; Z88.8 Allergy status to other drugs, medicaments and biological substances; Z88.5 Allergy status to narcotic agent; Z79.899 Other long term (current) drug therapy
CPT/HCPCS: 71045; 80053; 80305; 80320; 81003; 85025; 93005; 96360; 99285; J7040; 99284; G0480

== ENCOUNTER 2019-10-14 02:14 | Emergency (ER) | payer MEDICAID ==
[2019-10-14] MEDS ORDERED: Sodium Chloride 0.9% 10 ML Syringe FLUSH PRN (02:20)
[2019-10-14] MEDS ORDERED: Sodium Chloride 0.9% 2.5 ML Syringe FLUSH PRN (02:20)
[2019-10-14] MEDS ORDERED: Sodium Chloride 0.9% 1,000 ML IV ONE (02:20)
[2019-10-14] MEDS ORDERED: Ketorolac 30 MG/ML SDV IVPUSH ONE (02:20)
[2019-10-14] MEDS ORDERED: LORazepam 2 MG/ML SDV IVPUSH ONE (02:24)
[2019-10-14] MEDS ORDERED: Pantoprazole 80 MG in Sodium Chloride 0.9% 100 ML IV SCH (02:30)
--- NOTE | 2019-10-14 02:31 | EDM.PDOC ---
ED HPI GENERAL MEDICAL PROBLEM - General Chief Complaint: Chest Pain Stated Complaint: AMB Time Seen by Provider: 10/14/19 02:16 - History of Present Illness INITIAL COMMENTS - FREE TEXT/NARRATIVE: HISTORY AND PHYSICAL: History of present illness: The patient is a 39-year-old female who is known to this ER for visits in the past due to seizure disorder polysubstance use and abuse and who presents via EMS after experiencing midsternal chest pain that started while she was resting just prior to admission. The patient says that she ate out for dinner and did have some garlic crackers before bed and then went to sleep and woke with this discomfort and thought it might be her anxiety and she did 3 shots of fire ball liquor and it did not go away so she called EMS. The patient says she last use methamphetamine about 3 weeks ago and does Mc cigarettes and denies that she drank alcohol earlier this evening but does admit to the 3 shots done after the discomfort started. She says to the triage nurse that aside from having the chest discomfort and feeling anxious she is also having a diffuse headache she' s had no vomiting or diarrhea. She currently on my evaluation says that the chest pain is going away and that her headache is not that bad and she feels this is all related to her anxiety. She has no GI history or GI surgical history and does not take antacids on a regular basis. She has no history of food intolerance. Currently in the ED she is very vague about her symptoms telling me that she is not short of breath and she is no longer having much chest discomfort and her headache is not of concern to her and is subsiding. Patient denies any recent trauma. Patient says that she is not nauseated currently The patient states compliance with her seizure medications and says she has not had a seizure recently. Review of systems: As per history of present illness and below otherwise all systems reviewed and negative. Past medical history: As per history of present illness and as reviewed below otherwise noncontributory. Surgical history: As per history of present illness and as reviewed below otherwise noncontributory. Social history: No reported history of drug or alcohol abuse. Family history: As per history of present illness and as reviewed below otherwise noncontributory. Physical exam: General: Well-developed well-nourished female who is nontoxic and seems somewhat anxious on my evaluation and erratic in her answering but is not breathless and vital signs are noted by me HEENT: Atraumatic, normocephalic, pupils reactive, negative for conjunctival pallor or scleral icterus, mucous membranes moist, throat clear, neck supple, nontender, trachea midline. Lungs: Clear to auscultation, breath sounds equal bilaterally, chest nontender. Heart: S1S2, regular rhythm and slightly tachycardic rate on my evaluation but no murmurs, negative for clicks, rubs, or JVD. Abdomen: Soft, nondistended, nontender. Negative for masses or hepatosplenomegaly. NABS Pelvis: Stable nontender. Genitourinary: Deferred. Rectal: Deferred. Extremities: Atraumatic, negative for cords or calf pain. Neurovascular unremarkable. No pedal edema or leg asymmetry Neuro: Awake, alert, oriented. Cranial nerves II through XII unremarkable. Cerebellum unremarkable. Motor and sensory unremarkable throughout. Exam nonfocal. Diagnostics: EKG chest x-ray CBC CMP amylase lipase troponin UA with reflex ETOH Therapeutics: IV O2 monitor IV fluids and Protonix Ativan Patient is sleeping comfortably in the ED. She has been informed of all testing results and is aware of need for follow-up. Impression: Episode of atypical chest pain, recent alcohol use, history of drug use stable Definitive disposition and diagnosis as appropriate pending reevaluation and review of above. chest Pain Score (Numeric/FACES): 6 headache Pain Score (Numeric/FACES): 8 - Related Data Allergies Allergy/AdvReac Type Severity Reaction Status Date / Time ondansetron Allergy Rash Verified 10/14/19 02:24 [From Zofran (as hydrochloride)] tramadol Allergy Seizure Verified 10/14/19 02:24 Home Meds: Home Meds Doxepin [SINEquan] 100 mg PO BEDTIME 12/20/17 [History] OLANZapine [Olanzapine] 10 mg PO BEDTIME 12/20/17 [History] hydrOXYzine pamoate [Hydroxyzine Pamoate] 50 mg PO Q6H PRN 12/20/17 [History] Propranolol [Inderal] 20 mg PO DAILY 02/27/19 [History] Acetaminophen [Tylenol] 650 mg PO Q4H PRN tablet 03/01/19 [Rx] levETIRAcetam [Keppra] 250 mg PO TID 03/17/19 [History] Past Medical History HEENT History: Reports: None Cardiovascular History: Reports: Arrhythmia, Hypertension Respiratory History: Reports: PE Gastrointestinal History: Reports: None Genitourinary History: Reports: UTI, Recurrent 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: Reports: Other 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: Ovarian cyst Musculoskeletal History: Reports: Neck Pain, Chronic Neurological History: Reports: Seizure, Other (See Below) Other Neuro History: epilepsy Psychiatric History: Reports: Anxiety, Depression Endocrine/Metabolic History: Reports: None Hematologic History: Reports: Other (See Below) Other Hematologic History: clotting disorder Immunologic History: Reports: None Oncologic (Cancer) History: Reports: None Dermatologic History: Reports: None - Infectious Disease History Infectious Disease History: Reports: Chicken Pox, Hepatitis C, MRSA - Past Surgical History Female Surgical History: Reports: Section, D&C, Tubal Ligation Social & Family History - Family History Family Medical History: Noncontributory Psychiatric: Reports: Anxiety, Depression, Emotional Problems - Caffeine Use Caffeine Use: Reports: Coffee - Living Situation & Occupation Living situation: Reports: with Spouse ED ROS GENERAL - Review of Systems Review Of Systems: Comprehensive ROS is negative, except as noted in HPI. ED EXAM, GENERAL - Physical Exam Exam: See Below (See dictation) Course - Vital Signs Last Recorded V/S: Last Vital Signs Temp 35.8 C 10/14/19 02:15 Pulse 101 H 10/14/19 03:08 Resp 18 10/14/19 03:08 BP 118/63 10/14/19 03:08 Pulse Ox 95 10/14/19 02:39 - Orders/Labs/Meds Orders: Active Orders 24 hr Category Date Time Status Blood Glucose Check, Bedside [RC] ONETIME Care 10/14/19 02:19 Active Cardiac Monitoring [RC] . DIRECTED Care 10/14/19 02:18 Active EKG Documentation Completion [RC] STAT Care 10/14/19 02:18 Active Oxygen Therapy, ED [RC] ASDIRECTED Care 10/14/19 02:18 Active Pulse Oximetry [RC] ASDIRECTED Care 10/14/19 02:18 Active CULTURE URINE [RM] Stat Lab 10/14/19 02:45 Received Sodium Chloride 0.9% [Saline Flush] Med 10/14/19 02:20 Active 10 ml FLUSH ASDIRECTED PRN Sodium Chloride 0.9% [Saline Flush] Med 10/14/19 02:20 Active 2.5 ml FLUSH ASDIRECTED PRN Saline Lock Insert [OM.PC] Stat Oth 10/14/19 02:20 Ordered Medication Orders Sodium Chloride (Saline Flush) 10 ml FLUSH ASDIRECTED PRN PRN Reason: Keep Vein Open Sodium Chloride (Saline Flush) 2.5 ml FLUSH ASDIRECTED PRN PRN Reason: Keep Vein Open Labs: Laboratory Tests 10/14/19 10/14/19 10/14/19 Range/Units 02:34 02:35 02:35 WBC 4.79 (4.0-11.0) K/uL RBC 4.73 (4.30-5.90) M/uL Hgb 14.6 (12.0-16.0) g/dL Hct 42.6 (36.0-46.0) % MCV 90.1 (80.0-98.0) fL MCH 30.9 (27.0-32.0) pg MCHC 34.3 (31.0-37.0) g/dL RDW Std Deviation 42.8 (28.0-62.0) fl RDW Coeff of Michelle 13 (11.0-15.0) % Plt Count 257 (150-400) K/uL MPV 10.40 (7.40-12.00) fL Neut % (Auto) 39.1 L (48.0-80.0) % Lymph % (Auto) 48.2 H (16.0-40.0) % [place] % (Auto) 10.0 (0.0-15.0) % Eos % (Auto) 1.7 (0.0-7.0) % Baso % (Auto) 1.0 (0.0-1.5) % Neut # (Auto) 1.9 (1.4-5.7) K/uL Lymph # (Auto) 2.3 (0.6-2.4) K/uL [place] # (Auto) 0.5 (0.0-0.8) K/uL Eos # (Auto) 0.1 (0.0-0.7) K/uL Baso # (Auto) 0.1 (0.0-0.1) K/uL Nucleated RBC % 0.0 /100WBC Nucleated RBCs # 0 K/uL Sodium 143 (136-145) mmol/L Potassium 3.6 (3.5-5.1) mmol/L Chloride 104 (98-107) mmol/L Carbon Dioxide 27.8 (21.0-32.0) mmol/L BUN 13 (7.0-18.0) mg/dL Creatinine 0.9 (0.6-1.0) mg/dL Est Cr Clr Drug Dosing 92.22 mL/min Estimated GFR (MDRD) > 60.0 ml/min Glucose 61 L (74-106) mg/dL POC Glucose 53 L (60-110) mg/dL Calcium 8.7 (8.5-10.1) mg/dL Total Bilirubin 0.2 (0.2-1.0) mg/dL AST 59 H (15-37) IU/L ALT 56 (14-63) IU/L Alkaline Phosphatase 94 (46-116) U/L Troponin I < 0.050 (0.000-0.056) ng/mL Total Protein 7.8 (6.4-8.2) g/dL Albumin 3.8 (3.4-5.0) g/dL Globulin 4.0 (2.6-4.0) g/dL Albumin/Globulin Ratio 0.9 (0.9-1.6) Amylase 37 (25-115) U/L Lipase 85 (73-393) U/L Urine Color Urine Appearance Urine pH (5.0-8.0) Ur Specific [place] (1.001-1.035) Urine Protein (NEGATIVE) mg/dL Urine Glucose (UA) (NEGATIVE) mg/dL Urine Ketones (NEGATIVE) mg/dL Urine Occult Blood (NEGATIVE) Urine Nitrite (NEGATIVE) Urine Bilirubin (NEGATIVE) Urine Urobilinogen (<2.0) EU/dL Ur Leukocyte Esterase (NEGATIVE) Urine RBC (0-2/HPF) Urine WBC (0-5/HPF) Ur Epithelial Cells (NONE-FEW) Urine Bacteria (NEGATIVE) Urine Opiates Screen (NEGATIVE) Ur Oxycodone Screen (NEGATIVE) Urine Methadone Screen (NEGATIVE) Ur Barbiturates Screen (NEGATIVE) Ur Phencyclidine Scrn (NEGATIVE) Ur Amphetamine Screen (NEGATIVE) U Methamphetamines Scrn (NEGATIVE) U Benzodiazepines Scrn (NEGATIVE) U Cocaine Metab Screen (NEGATIVE) U Marijuana (THC) Screen (NEGATIVE) Ethyl Alcohol mg/dL 10/14/19 10/14/19 10/14/19 Range/Units 02:35 02:45 02:45 WBC (4.0-11.0) K/uL RBC (4.30-5.90) M/uL Hgb (12.0-16.0) g/dL Hct (36.0-46.0) % MCV (80.0-98.0) fL MCH (27.0-32.0) pg MCHC (31.0-37.0) g/dL RDW Std Deviation (28.0-62.0) fl RDW Coeff of Michelle (11.0-15.0) % Plt Count (150-400) K/uL MPV (7.40-12.00) fL Neut % (Auto) (48.0-80.0) % Lymph % (Auto) (16.0-40.0) % Cand[place] % (Auto) (0.0-15.0) % Eos % (Auto) (0.0-7.0) % Baso % (Auto) (0.0-1.5) % Neut # (Auto) (1.4-5.7) K/uL Lymph # (Auto) (0.6-2.4) K/uL [place] # (Auto) (0.0-0.8) K/uL Eos # (Auto) (0.0-0.7) K/uL Baso # (Auto) (0.0-0.1) K/uL Nucleated RBC % /100WBC Nucleated RBCs # K/uL Sodium (136-145) mmol/L Potassium (3.5-5.1) mmol/L Chloride (98-107) mmol/L Carbon Dioxide (21.0-32.0) mmol/L BUN (7.0-18.0) mg/dL Creatinine (0.6-1.0) mg/dL Est Cr Clr Drug Dosing mL/min Estimated GFR (MDRD) ml/min Glucose (74-106) mg/dL POC Glucose (60-110) mg/dL Calcium (8.5-10.1) mg/dL Total Bilirubin (0.2-1.0) mg/dL AST (15-37) IU/L ALT (14-63) IU/L Alkaline Phosphatase (46-116) U/L Troponin I (0.000-0.056) ng/mL Total Protein (6.4-8.2) g/dL Albumin (3.4-5.0) g/dL Globulin (2.6-4.0) g/dL Albumin/Globulin Ratio (0.9-1.6) Amylase (25-115) U/L Lipase (73-393) U/L Urine Color YELLOW Urine Appearance CLEAR Urine pH 6.0 (5.0-8.0) Ur Specific [place] 1.015 (1.001-1.035) Urine Protein NEGATIVE (NEGATIVE) mg/dL Urine Glucose (UA) NEGATIVE (NEGATIVE) mg/dL Urine Ketones NEGATIVE (NEGATIVE) mg/dL Urine Occult Blood NEGATIVE (NEGATIVE) Urine Nitrite POSITIVE H (NEGATIVE) Urine Bilirubin NEGATIVE (NEGATIVE) Urine Urobilinogen 0.2 (<2.0) EU/dL Ur Leukocyte Esterase NEGATIVE (NEGATIVE) Urine RBC 0-1 (0-2/HPF) Urine WBC 0-1 (0-5/HPF) Ur Epithelial Cells RARE (NONE-FEW) Urine Bacteria FEW (NEGATIVE) Urine Opiates Screen NEGATIVE (NEGATIVE) Ur Oxycodone Screen NEGATIVE (NEGATIVE) Urine Methadone Screen NEGATIVE (NEGATIVE) Ur Barbiturates Screen NEGATIVE (NEGATIVE) Ur Phencyclidine Scrn NEGATIVE (NEGATIVE) Ur Amphetamine Screen NEGATIVE (NEGATIVE) U Methamphetamines Scrn POSITIVE (NEGATIVE) U Benzodiazepines Scrn NEGATIVE (NEGATIVE) U Cocaine Metab Screen NEGATIVE (NEGATIVE) U Marijuana (THC) Screen NEGATIVE (NEGATIVE) Ethyl Alcohol 137 mg/dL Meds: Medications Generic Name Dose Route Start Last Admin Trade Name Freq PRN Reason Stop Dose Admin Sodium Chloride 10 ml 10/14/19 02:20 Saline Flush FLUSH ASDIRECTED PRN Keep Vein Open Sodium Chloride 2.5 ml 10/14/19 02:20 Saline Flush FLUSH ASDIRECTED PRN Keep Vein Open Discontinued Medications Generic Name Dose Route Start Last Admin Trade Name Freq PRN Reason Stop Dose Admin Pantoprazole Sodium 80 mg/ 100 mls @ 10 mls/hr 10/14/19 02:30 Sodium Chloride IV .Continuous BRANDEN Sodium Chloride 1,000 mls @ 999 mls/hr 10/14/19 02:20 10/14/19 02:35 Normal Saline IV 10/14/19 03:20 999 mls/hr STAT ONE Administration Pantoprazole Sodium 80 mg/ 20 mls @ 420 mls/hr 10/14/19 02:40 10/14/19 02:45 Sodium Chloride IVPUSH 10/14/19 02:42 420 mls/hr ONETIME ONE Administration Pantoprazole Sodium 80 mg/ 20 mls @ 420 mls/hr 10/14/19 02:40 10/14/19 02:51 Sodium Chloride IVPUSH 10/14/19 02:42 Not Given ONETIME ONE Ketorolac Tromethamine 30 mg 10/14/19 02:20 Toradol IVPUSH 10/14/19 02:21 ONETIME ONE Lorazepam 1 mg 10/14/19 02:24 10/14/19 02:37 Ativan IVPUSH 10/14/19 02:25 1 mg ONETIME ONE Administration Departure - Departure Time of Disposition: 03:36 Disposition: Home, Self-Care 01 Condition: Good Clinical Impression: Atypical chest pain, History of methamphetamine use, Alcohol use - Discharge Information Forms: ED Department Discharge Additional Instructions: The following information is given to patients seen in the emergency department who are being discharged to home. This information is to outline your options for follow-up care. We provide all patients seen in our emergency department with a follow-up referral. The need for follow-up, as well as the timing and circumstances, are variable depending upon the specifics of your emergency department visit. If you don't have a primary care physician on staff, we will provide you with a referral. We always advise you to contact your personal physician following an emergency department visit to inform them of the circumstance of the visit and for follow-up with them and/or the need for any referrals to a consulting specialist. The emergency department will also refer you to a specialist when appropriate. This referral assures that you have the opportunity for followup care with a specialist. All of these measure are taken in an effort to provide you with optimal care, which includes your followup. Under all circumstances we always encourage you to contact your private physician who remains a resource for coordinating your care. When calling for followup care, please make the office aware that this follow-up is from your recent emergency room visit. If for any reason you are refused follow-up, please contact the [facility] emergency department at and ask to speak to the emergency department charge nurse. JEANINE [facility] Primary care- Internal Medicine and Family [place] [id number] [place] [id number] Reduce and/or eliminate smoking and refrain from using any drugs area eliminate alcohol use and caffeine use for the next few days and eat a bland diet with low -fat foods area please call and schedule a follow-up appointment with your provider or one of ours for further care and reevaluation of the symptoms and return to ER as needed as discussed - My Orders Last 24 Hours: My Active Orders 10/14/19 02:18 Cardiac Monitoring [RC] . DIRECTED EKG Documentation Completion [RC] STAT Oxygen Therapy, ED [RC] ASDIRECTED Pulse Oximetry [RC] ASDIRECTED 10/14/19 02:19 Blood Glucose Check, Bedside [RC] ONETIME 10/14/19 02:20 Sodium Chloride 0.9% [Saline Flush] 10 ml FLUSH ASDIRECTED PRN Sodium Chloride 0.9% [Saline Flush] 2.5 ml FLUSH ASDIRECTED PRN Saline Lock Insert [OM.PC] Stat 10/14/19 02:45 CULTURE URINE [RM] Stat - Assessment/Plan Last 24 Hours: My Active Orders 10/14/19 02:18 Cardiac Monitoring [RC] . DIRECTED EKG Documentation Completion [RC] STAT Oxygen Therapy, ED [RC] ASDIRECTED Pulse Oximetry [RC] ASDIRECTED 10/14/19 02:19 Blood Glucose Check, Bedside [RC] ONETIME 10/14/19 02:20 Sodium Chloride 0.9% [Saline Flush] 10 ml FLUSH ASDIRECTED PRN Sodium Chloride 0.9% [Saline Flush] 2.5 ml FLUSH ASDIRECTED PRN Saline Lock Insert [OM.PC] Stat 10/14/19 02:45 CULTURE URINE [RM] Stat
[2019-10-14] MEDS ORDERED: Pantoprazole 80 MG in Sodium Chloride 0.9% 20 ML IVPUSH ONE ×4 (02:40)
--- NOTE | 2019-10-14 03:08 | CR ---
INDICATION: Chest pain TECHNIQUE: Chest 1 view, 2 films COMPARISON: Chest x-ray 09/04/2019 FINDINGS: Cardiovascular and mediastinum: Heart size and vasculature are normal in caliber and appearance. Lungs and pleural spaces: No pleural effusion or pneumothorax. Linear scarring left lung base. Bones and soft tissues: Ossification at the level of the right 2nd rib, similar to the prior exam. IMPRESSION: No acute findings and no significant changes from the prior exam. Dictated by Malik Logan MD @ Oct 14 2019 3:05AM Signed by Dr. Malik Logan @ Oct 14 2019 3:06AM
[2019-10-14 03:24] LABS: BLOOD UREA NITROGEN,BUN 13 mg/dL (7.0-18.0); CARBON DIOXIDE,CO2 27.8 mmol/L (21.0-32.0); CHLORIDE,CL 104 mmol/L (98-107); GLUCOSE RANDOM 61 mg/dL (74-106); LIPASE 85 U/L (73-393); POTASSIUM,K 3.6 mmol/L (3.5-5.1); SODIUM,NA 143 mmol/L (136-145)
[2019-10-14 04:04] VITALS: BP 118/73; PULSE 92
== END 2019-10-14 03:50 | disposition home or self-care (01) ==
LOC: MW.ED 02:14
DX: R07.89 Other chest pain (principal); Z72.89 Other problems related to lifestyle; F15.11 Other stimulant abuse, in remission; I10 Essential (primary) hypertension; F41.9 Anxiety disorder, unspecified; F32.9 Major depressive disorder, single episode, unspecified; Z86.711 Personal history of pulmonary embolism; Z88.5 Allergy status to narcotic agent; Z88.8 Allergy status to other drugs, medicaments and biological substances; Z79.899 Other long term (current) drug therapy
CPT/HCPCS: 36415; 71045; 80053; 80305; 80320; 81001; 82150; 82962; 83690; 84484; 85025; 87086; 87186; 96361; 96374; 96375; 99285; C9113; J2060; J7030; G0480

== ENCOUNTER 2019-11-20 12:23 | Emergency (ER) | payer MEDICAID ==
[2019-11-20 12:36] VITALS: BP 143/75; PULSE 105
--- NOTE | 2019-11-20 12:42 | EDM.PDOC ---
ED HPI GENERAL MEDICAL PROBLEM - General Chief Complaint: General Stated Complaint: MEDICAL CLEARANCE Time Seen by Provider: 11/20/19 12:25 Source of Information: Reports: Patient History Limitations: Reports: No Limitations - History of Present Illness INITIAL COMMENTS - FREE TEXT/NARRATIVE: HISTORY AND PHYSICAL: History of present illness: Patient is a 39-year-old female who presents to the emergency room with law enforcement for medical screening exam. Law enforcement states the patient has a history of seizure disorder, bipolar and high blood pressure. Patient states she has been taking her medications as prescribed and finished them all "yesterday". She has not had time to follow-up with her primary care provider for further refill. Patient otherwise has no complaints or concerns. Patient denies any fever, chills, headache, change in vision, syncope or near syncope. Denies any chest pain, back pain, shortness of breath or cough. Denies any abdominal pain, nausea, vomiting, diarrhea, constipation or dysuria. Has not noted any blood in urine or stool. Patient has been eating and drinking appropriately. Review of systems: As per history of present illness and below otherwise all systems reviewed and negative. Past medical history: As per history of present illness and as reviewed below otherwise noncontributory. Surgical history: As per history of present illness and as reviewed below otherwise noncontributory. Social history: See social history for further information Family history: As per history of present illness and as reviewed below otherwise noncontributory. Physical exam: General: Well-developed and well-nourished 39-year-old female. Alert and oriented. Crying but cooperative with care, nontoxic-appearing and in no acute distress. HEENT: Atraumatic, normocephalic, pupils equal and reactive bilaterally, negative for conjunctival pallor or scleral icterus, mucous membranes moist, TMs normal bilaterally, throat clear, neck supple, nontender, trachea midline. No drooling or trismus noted. No meningeal signs. No hot potato voice noted. Lungs: Clear to auscultation, breath sounds equal bilaterally, chest nontender. Heart: S1S2, regular rate and rhythm without overt murmur Abdomen: Soft, nondistended, nontender. Skin: Superficial laceration noted to the solar surface of the left foot. Intact, warm, dry. No lesions or rashes noted. Extremities: Atraumatic, moves all extremities per self without difficulty or deficits, negative for cords or calf pain. Neurovascular unremarkable. Neuro: Awake, alert, oriented. Cranial nerves II through XII unremarkable. Cerebellum unremarkable. Motor and sensory unremarkable throughout. Exam nonfocal. Notes: Patient did want me to look at a laceration that she noticed a few days ago to the bottom of her foot. There is a superficial healing laceration noted but no sign of infection or needing any further care. Patient goes back and forth between whether or not she has her medications available to her. At this time and get a refill her Keppra and propranolol. Law enforcement has no other concerns or complaints today supportive care measures were reviewed and discussed. Voices understanding and is agreeable to plan of care. Denies any further questions or concerns at this time. Diagnostics: Blood glucose Therapeutics: None Prescription: Keppra and propranolol Impression: Encounter for medical screening exam Encounter for medication refill Plan: 1. Keep the laceration to your foot clean and dry. Continue to monitor for signs of improvement. Tylenol and/or ibuprofen as needed for pain management. 2. Take your home medications as prescribed. Your psychiatric medications will need to be refilled through your primary care provider. 3. Return to the ED as needed and as discussed. Definitive disposition and diagnosis as appropriate pending reevaluation and review of above. - Related Data Allergies Allergy/AdvReac Type Severity Reaction Status Date / Time ondansetron Allergy Rash Verified 11/20/19 12:33 [From Zofran (as hydrochloride)] tramadol Allergy Seizure Verified 11/20/19 12:33 Home Meds: Home Meds Doxepin [SINEquan] 100 mg PO BEDTIME 12/20/17 [History] OLANZapine [Olanzapine] 10 mg PO BEDTIME 12/20/17 [History] hydrOXYzine pamoate [Hydroxyzine Pamoate] 50 mg PO Q6H PRN 12/20/17 [History] Propranolol [Inderal] 20 mg PO DAILY 02/27/19 [History] Acetaminophen [Tylenol] 650 mg PO Q4H PRN tablet 03/01/19 [Rx] levETIRAcetam [Keppra] 250 mg PO TID 03/17/19 [History] Past Medical History HEENT History: Reports: None Cardiovascular History: Reports: Arrhythmia, Hypertension Other Cardiovascular History: pt states "i have tachycardia" Respiratory History: Reports: PE Gastrointestinal History: Reports: None Genitourinary History: Reports: UTI, Recurrent 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 THREAT 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: Ovarian cyst Musculoskeletal History: Reports: Neck Pain, Chronic Neurological History: Reports: Seizure, Other (See Below) Other Neuro History: epilepsy Psychiatric History: Reports: Anxiety, Depression Endocrine/Metabolic History: Reports: Diabetes, Type II Hematologic History: Reports: Other (See Below) Other Hematologic History: clotting disorder Immunologic History: Reports: None Oncologic (Cancer) History: Reports: None Dermatologic History: Reports: None - Infectious Disease History Infectious Disease History: Reports: None - Past Surgical History Female Surgical History: Reports: Section, D&C, Tubal Ligation Social & Family History - Family History Family Medical History: Noncontributory Psychiatric: Reports: Anxiety, Depression, Emotional Problems - Tobacco Use Smoking Status *Q: Unknown Ever Smoked - Caffeine Use Caffeine Use: Reports: None - Recreational Drug Use Recreational Drug Use: Yes Drug Use in Last 12 Months: Yes Recreational Drug Type: Reports: Benzodiazepines, Heroin - Living Situation & Occupation Living situation: Reports: with Spouse ED ROS GENERAL - Review of Systems Review Of Systems: Comprehensive ROS is negative, except as noted in HPI. ED EXAM, GENERAL - Physical Exam Exam: See Below (See dictation) Course - Vital Signs Last Recorded V/S: Last Vital Signs Temp 98.4 F 11/20/19 12:34 Pulse 105 H 11/20/19 12:34 Resp 20 11/20/19 12:34 BP 143/75 H 11/20/19 12:34 Pulse Ox 94 L 11/20/19 12:34 - Orders/Labs/Meds Labs: Laboratory Tests 11/20/19 Range/Units 12:40 POC Glucose 148 H (60-110) mg/dL Departure - Departure Time of Disposition: 12:47 Disposition: Home, Self-Care 01 Clinical Impression: Encounter for medical screening examination, Encounter for medication refill - Discharge Information Instructions: Medical Screening Exam Referrals: PCP,None [Primary Care Provider] - Forms: ED Department Discharge Additional Instructions: The following information is given to patients seen in the emergency department who are being discharged to home. This information is to outline your options for follow-up care. We provide all patients seen in our emergency department with a follow-up referral. The need for follow-up, as well as the timing and circumstances, are variable depending upon the specifics of your emergency department visit. If you don't have a primary care physician on staff, we will provide you with a referral. We always advise you to contact your personal physician following an emergency department visit to inform them of the circumstance of the visit and for follow-up with them and/or the need for any referrals to a consulting specialist. The emergency department will also refer you to a specialist when appropriate. This referral assures that you have the opportunity for follow-up care with a specialist. All of these measure are taken in an effort to provide you with optimal care, which includes your follow-up. Under all circumstances we always encourage you to contact your private physician who remains a resource for coordinating your care. When calling for follow-up care, please make the office aware that this follow-up is from your recent emergency room visit. If for any reason you are refused follow-up, please contact the [facility] Emergency Department at and asked to speak to the emergency department charge nurse. [facility] [address] [place] [address] [place] [address] 1. Keep the laceration to your foot clean and dry. Continue to monitor for signs of improvement. Tylenol and/or ibuprofen as needed for pain management. 2. Take your home medications as prescribed. Your psychiatric medications will need to be refilled through your primary care provider. 3. Return to the ED as needed and as discussed. Sepsis Event Note - Evaluation Sepsis Screening Result: No Definite Risk - Focused Exam Vital Signs: Vital Signs Temp Pulse Resp BP Pulse Ox 11/20/19 12:34 98.4 F 105 H 20 143/75 H 94 L Date Exam was Performed: 11/20/19 Time Exam was Performed: 12:49
== END 2019-11-20 13:00 | disposition home or self-care (01) ==
LOC: MW.ED 12:23
DX: Z76.0 Encounter for issue of repeat prescription (principal); S91.312A Laceration without foreign body, left foot, initial encounter; F32.9 Major depressive disorder, single episode, unspecified; F41.9 Anxiety disorder, unspecified; Z88.6 Allergy status to analgesic agent; Z88.8 Allergy status to other drugs, medicaments and biological substances; X58.XXXA Exposure to other specified factors, initial encounter
CPT/HCPCS: 82962; 99283

== ENCOUNTER 2020-04-14 01:49 | Emergency (ER) | payer MEDICAID ==
[2020-04-14] MEDS ORDERED: Metoprolol Tartrate 5 MG/5 ML SDV IVPUSH ONE (01:56)
[2020-04-14] MEDS ORDERED: Sodium Chloride 0.9% 10 ML Syringe FLUSH PRN (01:56)
[2020-04-14] MEDS ORDERED: Lactated Ringers 1,000 ML IV ONE (01:56)
[2020-04-14] MEDS ORDERED: Sodium Chloride 0.9% 2.5 ML Syringe FLUSH PRN (01:56)
[2020-04-14] MEDS ORDERED: Sodium Chloride 0.9% 10 ML SDV IV PRN (01:56)
[2020-04-14] MEDS ORDERED: LORazepam 2 MG/ML SDV IVPUSH ONE ×2 (01:56→02:13)
--- NOTE | 2020-04-14 02:09 | EDM.PDOC ---
ED HPI GENERAL MEDICAL PROBLEM - General Stated Complaint: ELEVATED HEART RATE Time Seen by Provider: 04/14/20 01:55 Source of Information: Reports: Patient, EMS History Limitations: Reports: Intoxication - History of Present Illness INITIAL COMMENTS - FREE TEXT/NARRATIVE: 39-year-old female with a past medical history of methamphetamine abuse, chronic back pain, alcohol abuse, depression, seizure disorder presenting with palpitations and chest discomfort. 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 Paramedics noted that her heart rate was above 200, were unable to establish IV access. Patient reports using methamphetamine, Vicodin ,and alcohol within the past 24 hours, states that she "relapsed". She also states that she discontinued her prescribed medications 3 days ago including propranolol (taken for tachycardia), doxepin, levetiracetam, and olanzapine. chest Pain Score (Numeric/FACES): 10 - Related Data Allergies Allergy/AdvReac Type Severity Reaction Status Date / Time ondansetron Allergy Rash Verified 11/20/19 12:33 [From Zofran (as hydrochloride)] tramadol Allergy Seizure Verified 11/20/19 12:33 Home Meds: Home Meds Doxepin [SINEquan] 100 mg PO BEDTIME 12/20/17 [History] OLANZapine [Olanzapine] 10 mg PO BEDTIME 12/20/17 [History] hydrOXYzine pamoate [Hydroxyzine Pamoate] 50 mg PO Q6H PRN 12/20/17 [History] Propranolol [Inderal] 20 mg PO DAILY 02/27/19 [History] Acetaminophen [Tylenol] 650 mg PO Q4H PRN tablet 03/01/19 [Rx] levETIRAcetam [Keppra] 250 mg PO TID 03/17/19 [History] Past Medical History HEENT History: Reports: None Cardiovascular History: Reports: Arrhythmia, Hypertension Other Cardiovascular History: pt states "i have tachycardia" Respiratory History: Reports: PE (not on anticoagulation) Gastrointestinal History: Reports: None Genitourinary History: Reports: UTI, Recurrent NUCLEAR OFFICER History: Reports: Other NUCLEAR OFFICER History: Ovarian cyst Musculoskeletal History: Reports: Neck Pain, Chronic Neurological History: Reports: Seizure, Other (See Below) Other Neuro History: epilepsy Psychiatric History: Reports: Anxiety, Depression Hematologic History: Reports: Other (See Below) Other Hematologic History: clotting disorder Immunologic History: Reports: None Oncologic (Cancer) History: Reports: None Dermatologic History: Reports: None - Infectious Disease History Infectious Disease History: Reports: None - Past Surgical History Female Surgical History: Reports: Section, D&C, Tubal Ligation Social & Family History - Family History Family Medical History: Noncontributory Psychiatric: Reports: Anxiety, Depression, Emotional Problems - Caffeine Use Caffeine Use: Reports: None - Living Situation & Occupation Living situation: Reports: with Spouse ED ROS GENERAL - Review of Systems Review Of Systems: Unable To Obtain Reason Not Obtained: Intoxication Respiratory: Denies: Shortness of Breath Cardiovascular: Reports: Chest Pain, Lightheadedness, Palpitations GI/Abdominal: Denies: Abdominal Pain Psychiatric: Reports: Anxiety ED EXAM, GENERAL - Physical Exam Exam: See Below Free Text/Narrative:: Vital signs reviewed. Nursing notes reviewed. Constitutional: Awake, alert, extremely anxious, disheveled appearing Head: Normocephalic, atraumatic. Eyes: EOMI, conjunctiva normal, no discharge, no scleral icterus. Ears, Nose, Throat: External ears and ears normal, moist oral mucosa. Cardiovascular: Tachycardic, 2+ radial pulse, capillary refill less than 2 seconds. Extremities warm and well perfused. No M/R/G Pulmonary: normal work of breathing, no accessory muscle use. CTA BL. Abdomen/GI: Soft, nontender, nondistended, no guarding or rigidity, no masses. Musculoskeletal: No deformities. Integumentary: Appropriate color for ethnicity, warm, dry, no pallor or jaundice , no rash. Neurologic: Alert, answering questions appropriately, pressured speech, no facial droop, moving all extremities well. Psychiatric: Extremely anxious, requires frequent redirection. Poor judgment. Course - Vital Signs Text/Narrative:: Patient tachycardic but with stable blood pressure, afebrile. Differential diagnosis includes but is not limited to: SVT, V. tach, hyperthyroidism, stimulant abuse, polysubstance abuse, alcohol intoxication, beta-colin withdrawal, electrolyte disturbance, anemia, acute coronary syndrome, pulmonary embolism, etc. Patient was immediately roomed upon arrival, heart rate noted to be above 200. Observed to be in SVT. IV access was established. Stable blood pressure, no indication for emergent synchronized cardioversion. Patient was extremely hard to direct and would not participate in vagal maneuvers. Administered IV metoprolol tartrate (possible beta colin withdrawal element) along with lorazepam given methamphetamine/stimulant intoxication. Also given 1 L of lactated Ringer's. 0218: Still in SVT at about 160 bpm. Received additional 1 mg IV lorazepam. Systolic blood pressure 100. 0222: Converted to sinus rhythm at 95/minute. SBP 110+ systolic. Resting comfortably. 0253: CBC shows mild leukocytosis. Normal electrolytes. Creatinine mildly elevated at 1.3. Negative troponin. Negative test. Mildly elevated serum ethanol. Repeat twelve-lead EKG after conversion to sinus rhythms shows no acute ischemia or ectopy. Receiving a second liter of lactated Ringer's, sleeping comfortably. 0610: Patient is more awake, able to ambulate safely and is tolerating p.o. intake. We will plan to discharge her home. We will call her spouse to come pick her up from the emergency department. She has no complaints this time. Plan: Patient is stable to discharge home with outpatient primary care follow- up. Strict emergency department return precautions were provided, patient indicated understanding. All questions were answered prior to departure. Discharged in good condition. Last Recorded V/S: Last Vital Signs Temp 36.4 C 04/14/20 01:49 Pulse 99 04/14/20 06:47 Resp 18 04/14/20 06:47 BP 114/67 04/14/20 06:47 Pulse Ox 97 04/14/20 06:47 - Orders/Labs/Meds Orders: Active Orders 24 hr Category Date Time Status Cardiac Monitoring [RC] . DIRECTED Care 04/14/20 01:56 Active EKG 12 Lead [EKG Documentation Completion] [RC] STAT Care 04/14/20 01:55 Active Pulse Oximetry [RC] ASDIRECTED Care 04/14/20 01:56 Active Lactated Ringers [Ringers, Lactated] 1,000 ml Med 04/14/20 02:47 Active IV .BOLUS Sodium Chloride 0.9% [Normal Saline] Med 04/14/20 01:56 Active 10 ml IV ASDIRECTED PRN Sodium Chloride 0.9% [Saline Flush] Med 04/14/20 01:56 Active 10 ml FLUSH ASDIRECTED PRN Sodium Chloride 0.9% [Saline Flush] Med 04/14/20 01:56 Active 2.5 ml FLUSH ASDIRECTED PRN Peripheral IV Insertion Adult [OM.PC] Stat Oth 04/14/20 01:55 Ordered Medication Orders Lactated Ringer's (Ringers, Lactated) 1,000 mls @ 999 mls/hr IV .BOLUS BRANDEN Last Admin: 04/14/20 02:47 Dose: 999 mls/hr Sodium Chloride (Saline Flush) 10 ml FLUSH ASDIRECTED PRN PRN Reason: Keep Vein Open Sodium Chloride (Saline Flush) 2.5 ml FLUSH ASDIRECTED PRN PRN Reason: Keep Vein Open Sodium Chloride (Normal Saline) 10 ml IV ASDIRECTED PRN PRN Reason: IV Use Labs: Laboratory Tests 04/14/20 04/14/20 04/14/20 Range/Units 01:50 01:50 01:50 WBC 13.70 H (4.0-11.0) K/uL RBC 4.24 L (4.30-5.90) M/uL Hgb 13.4 (12.0-16.0) g/dL Hct 39.0 (36.0-46.0) % MCV 92.0 (80.0-98.0) fL MCH 31.6 (27.0-32.0) pg MCHC 34.4 (31.0-37.0) g/dL RDW Std Deviation 39.5 (28.0-62.0) fl RDW Coeff of Michelle 12 (11.0-15.0) % Plt Count 296 (150-400) K/uL MPV 10.10 (7.40-12.00) fL Neut % (Auto) 64.8 (48.0-80.0) % Lymph % (Auto) 23.7 (16.0-40.0) % Logan % (Auto) 10.0 (0.0-15.0) % Eos % (Auto) 1.1 (0.0-7.0) % Baso % (Auto) 0.4 (0.0-1.5) % Neut # (Auto) 8.9 H (1.4-5.7) K/uL Lymph # (Auto) 3.3 H (0.6-2.4) K/uL Logan # (Auto) 1.4 H (0.0-0.8) K/uL Eos # (Auto) 0.2 (0.0-0.7) K/uL Baso # (Auto) 0.1 (0.0-0.1) K/uL Sodium 139 (136-145) mmol/L Potassium 3.5 (3.5-5.1) mmol/L Chloride 100 (98-107) mmol/L Carbon Dioxide 27.7 (21.0-32.0) mmol/L BUN 17 (7.0-18.0) mg/dL Creatinine 1.3 H (0.6-1.0) mg/dL Est Cr Clr Drug Dosing TNP Estimated GFR (MDRD) 45.4 ml/min Glucose 83 (74-106) mg/dL Calcium 8.4 L (8.5-10.1) mg/dL Total Bilirubin 0.4 (0.2-1.0) mg/dL AST 64 H (15-37) IU/L ALT 44 (14-63) IU/L Alkaline Phosphatase 83 (46-116) U/L Troponin I < 0.050 (0.000-0.056) ng/mL Total Protein 7.3 (6.4-8.2) g/dL Albumin 3.8 (3.4-5.0) g/dL Globulin 3.5 (2.6-4.0) g/dL Albumin/Globulin Ratio 1.1 (0.9-1.6) HCG, Qual NEGATIVE (NEG) Ethyl Alcohol 35 mg/dL Meds: Medications Generic Name Dose Route Start Last Admin Trade Name Freq PRN Reason Stop Dose Admin Lactated Ringer's 1,000 mls @ 999 mls/hr 04/14/20 02:47 04/14/20 02:47 Ringers, Lactated IV 999 mls/hr .BOLUS BRANDEN Administration Sodium Chloride 10 ml 04/14/20 01:56 Saline Flush FLUSH ASDIRECTED PRN Keep Vein Open Sodium Chloride 2.5 ml 04/14/20 01:56 Saline Flush FLUSH ASDIRECTED PRN Keep Vein Open Sodium Chloride 10 ml 04/14/20 01:56 Normal Saline IV ASDIRECTED PRN IV Use Discontinued Medications Generic Name Dose Route Start Last Admin Trade Name Freq PRN Reason Stop Dose Admin Adenosine Confirm 04/14/20 02:19 04/14/20 02:32 Adenocard Administered 04/14/20 02:20 12 mg Dose Administration 12 mg .ROUTE .STK-MED ONE Lactated Ringer's 1,000 mls @ 1,000 mls/hr 04/14/20 01:56 04/14/20 01:53 Ringers, Lactated IV 04/14/20 02:55 1,000 mls/hr .BOLUS ONE Administration Lorazepam 1 mg 04/14/20 01:56 04/14/20 01:53 Ativan IVPUSH 04/14/20 01:57 1 mg ONETIME ONE Administration Lorazepam 1 mg 04/14/20 02:13 04/14/20 02:13 Ativan IVPUSH 04/14/20 02:14 1 mg ONETIME ONE Administration Metoprolol Tartrate 5 mg 04/14/20 01:56 04/14/20 01:54 Lopressor IVPUSH 04/14/20 01:57 5 mg ONETIME ONE Administration Departure - Departure Time of Disposition: 06:30 Disposition: Home, Self-Care 01 Condition: Good Clinical Impression: SVT (supraventricular tachycardia), Elevated serum creatinine Stimulant intoxication Qualifiers: Complication of substance-induced condition: with unspecified complication Qualified Code(s): F15.929 - Other stimulant use, unspecified with intoxication , unspecified Instructions: Supraventricular Tachycardia, Adult, [id number], Stimulant Use Disorder-Amphetamines, Serum Creatinine Test Referrals: [facility] [Provider Group] - 1 Week (To establish primary care and to recheck your kidney function (elevated creatinine test).) Forms: ED Department Discharge Additional Instructions: Thank you for choosing the [facility] emergency department in [place] for your medical needs today. It was a pleasure caring for you. You were seen in the emergency department for fast heart rate and chest pain. I believe that your symptoms were due to discontinuing your prescribed medications along with using illegal drugs and alcohol. Is very important that you stop using drugs and alcohol and there are community resources available through [facility] to help with drug and alcohol cessation. I also recommend that you establish care with a primary medical doctor in the area. Your kidney function was slightly abnormal. This should be rechecked in the next month or so. Be sure you are drinking plenty of fluids. Please return the emergency department immediately if your symptoms worsen or if you feel worse. The following information is given to patients seen in the emergency department who are being discharged. This information is to outline your options for follow -up care. We provide all patients seen in our emergency department with a follow -up referral. The need for follow-up, as well as the timing and circumstances, are variable depending upon the specifics of your emergency department visit. If you don't have a primary care physician on staff, we will provide you with a referral. We always advise you to contact your personal physician following an emergency department visit to inform them of the circumstance of the visit and for follow-up with them and/or the need for any referrals to a consulting specialist. The emergency department will also refer you to a specialist when appropriate. This referral assures that you have the opportunity for follow-up care with a specialist. All of these measure are taken in an effort to provide you with optimal care, which includes your follow-up. Under all circumstances we always encourage you to contact your private physician who remains a resource for coordinating your care. When calling for follow-up care, please make the office aware that this follow-up is from your recent emergency room visit. If for any reason you are refused follow-up, please contact the [facility] Emergency Department at and asked to speak to the emergency department charge nurse. If you do not have a primary care physician that is caring for you, you can contact these clinics below to set up an appointment to establish care: [facility] - Primary [facility] [address] [place] [id number] [facility] [address] [place] [id number] Critical Care Note - Critical Care Note Total Time (mins): 30 Comments: Critical care time is exclusive of billable procedures and the time to perform these procedures. Critical care time was used to prevent vital system organ failure and deterioration. Critical care time includes bedside management and high-complexity decision making requiring my highest level of mental preparedness and attention. This includes reviewing the patient's chart and prior medical records, ordering and reviewing interpreting laboratory studies and imaging results, interpretation of vital signs and EKG, pulse oximetry, and discussion with EMS and nursing staff. Supraventricular tachycardia and suspected stimulant/methamphetamine intoxication requiring IV access, IV beta-colin administration, serial IV benzodiazepine administration, multiple crystalloid fluid boluses. Required serial assessments of hemodynamic parameters, continuous ECG/heart rate/pulse oximetry monitoring, serial blood pressure assessments, and close monitoring of cardiorespiratory status. Frequent cardiac rhythm reassessments. Sepsis Event Note - Focused Exam Vital Signs: Vital Signs Temp Pulse Pulse Resp BP BP Pulse Ox 04/14/20 06:47 99 18 114/67 97 04/14/20 05:11 75 14 104/75 94 L 04/14/20 04:58 80 16 106/60 97 04/14/20 04:35 77 102/70 04/14/20 04:20 77 96/64 100 04/14/20 04:05 80 14 102/58 L 100 04/14/20 03:50 78 97/58 L 100 04/14/20 03:35 83 12 98/56 L 100 04/14/20 03:20 87 96/57 L 100 04/14/20 03:14 81 92/53 L 99 04/14/20 02:49 85 12 90/50 L 99 04/14/20 02:43 87 90/46 L 04/14/20 02:37 91 12 91/46 L 99 04/14/20 02:24 96 98 04/14/20 02:16 166 H 100/62 04/14/20 01:54 193 H 193 H 112/68 112/68 97 04/14/20 01:49 36.4 C 207 H 22 H 132/86 94 L Date Exam was Performed: 04/14/20 Time Exam was Performed: 06:54 - My Orders Last 24 Hours: My Active Orders 04/14/20 01:55 EKG 12 Lead [EKG Documentation Completion] [RC] STAT Peripheral IV Insertion Adult [OM.PC] Stat 04/14/20 01:56 Cardiac Monitoring [RC] . DIRECTED Pulse Oximetry [RC] ASDIRECTED Sodium Chloride 0.9% [Normal Saline] 10 ml IV ASDIRECTED PRN Sodium Chloride 0.9% [Saline Flush] 10 ml FLUSH ASDIRECTED PRN Sodium Chloride 0.9% [Saline Flush] 2.5 ml FLUSH ASDIRECTED PRN 04/14/20 02:47 Lactated Ringers [Ringers, Lactated] 1,000 ml IV .BOLUS - Assessment/Plan Last 24 Hours: My Active Orders 04/14/20 01:55 EKG 12 Lead [EKG Documentation Completion] [RC] STAT Peripheral IV Insertion Adult [OM.PC] Stat 04/14/20 01:56 Cardiac Monitoring [RC] . DIRECTED Pulse Oximetry [RC] ASDIRECTED Sodium Chloride 0.9% [Normal Saline] 10 ml IV ASDIRECTED PRN Sodium Chloride 0.9% [Saline Flush] 10 ml FLUSH ASDIRECTED PRN Sodium Chloride 0.9% [Saline Flush] 2.5 ml FLUSH ASDIRECTED PRN 04/14/20 02:47 Lactated Ringers [Ringers, Lactated] 1,000 ml IV .BOLUS
[2020-04-14] MEDS ORDERED: Adenosine 6 MG/2 ML SDV ONE (02:19)
[2020-04-14 02:29] LABS: BLOOD UREA NITROGEN,BUN 17 mg/dL (7.0-18.0); CARBON DIOXIDE,CO2 27.7 mmol/L (21.0-32.0); CHLORIDE,CL 100 mmol/L (98-107); GLUCOSE RANDOM 83 mg/dL (74-106); POTASSIUM,K 3.5 mmol/L (3.5-5.1); SODIUM,NA 139 mmol/L (136-145)
--- NOTE | 2020-04-14 02:29 | CR ---
INDICATION: Chest pain TECHNIQUE: Chest 1 views COMPARISON: Chest x-ray 10/14/2019 FINDINGS: Cardiovascular and mediastinum: Heart size and vasculature are normal in caliber and appearance. Lungs and pleural spaces: Lungs are clear. No sign of infiltrate or mass. No sign of pleural effusion. No pneumothorax. Bones and soft tissues: Per left distal clavicular resection. IMPRESSION: No acute findings and no significant changes from the prior exam. Dictated by Malik Logan MD @ Apr 14 2020 2:27AM Signed by Dr. Malik Logan @ Apr 14 2020 2:28AM
[2020-04-14] MEDS ORDERED: Lactated Ringers 1,000 ML IV SCH (02:47)
[2020-04-14 06:48] VITALS: BP 114/67; PULSE 99
== END 2020-04-14 07:01 | disposition home or self-care (01) ==
LOC: MW.ED 01:49
DX: I47.1 Supraventricular tachycardia (principal); R74.8 Abnormal levels of other serum enzymes; F15.129 Other stimulant abuse with intoxication, unspecified; I10 Essential (primary) hypertension; R56.9 Unspecified convulsions; F41.9 Anxiety disorder, unspecified; F32.9 Major depressive disorder, single episode, unspecified; Z88.8 Allergy status to other drugs, medicaments and biological substances; Z88.5 Allergy status to narcotic agent; Z79.899 Other long term (current) drug therapy
CPT/HCPCS: 36415; 71045; 80053; 80307; 84484; 84703; 85025; 93005; 96361; 96374; 96375; 99285; J0153; J2060; J3490; J7120; 99291

== ENCOUNTER 2020-04-15 09:08 | Emergency (ER) | payer MEDICAID ==
[2020-04-15] MEDS ORDERED: Lidocaine 1% with EPINEPHrine 1:100,000 20 ML MDV INJECT ONE (09:42)
[2020-04-15] MEDS ORDERED: Cephalexin 500 MG Cap PO ONE (09:45)
[2020-04-15] MEDS ORDERED: Acetaminophen/HYDROcodone 325-5 MG Tab PO ONE (09:45)
[2020-04-15] MEDS ORDERED: Ibuprofen 600 MG Tab PO ONE (09:45)
[2020-04-15] MEDS ORDERED: Sulfamethoxazole/Trimethoprim 800-160 MG Tab PO ONE (09:45)
--- NOTE | 2020-04-15 10:43 | EDM.PDOC ---
ED HPI GENERAL MEDICAL PROBLEM - General Chief Complaint: Lower Extremity Injury/Pain Stated Complaint: PAIN IN BOTH LEGS Time Seen by Provider: 04/15/20 09:20 - History of Present Illness INITIAL COMMENTS - FREE TEXT/NARRATIVE: HISTORY AND PHYSICAL: History of present illness: This 39-year-old female with a past medical history of amphetamine abuse, MRSA infection, and depressive disorder presents to the emergency department complaining of bilateral foot pain between the toes. She reports that she went on a methamphetamine chau and walked long distances in her flip-flops which caused her to have blisters and now the blisters have popped and become infected. She reports she also has bilateral lower extremity swelling and bilateral upper extremity swelling. This is new for her. She cannot remove the ring from her finger. The patient also complains of severe right-sided knee pain and swelling of the knee. She denies any fevers. She has some mild shortness of breath. No chest pain. Review of systems: A 10-point review of systems, other than pertinent positives and negatives as stated per HPI, is otherwise negative. Past medical history: As per history of present illness and as reviewed below otherwise noncontributory. Surgical history: As per history of present illness and as reviewed below otherwise noncontributory. Social history: No reported history of drug or alcohol abuse. Family history: As per history of present illness and as reviewed below otherwise noncontributory. Physical exam: VITAL SIGNS: Reviewed. GENERAL: Appears to be in mild distress and is very anxious about her condition HEAD: [No signs of head trauma.] EYES: [Pupils are equal. Extraocular motions intact.] EARS: [Hearing grossly intact.] MOUTH: [Oropharynx is normal.] NECK: [No adenopathy, no JVD.] CHEST: [Chest with clear breath sounds bilaterally. No wheezes, rales, or rhonchi.] CARDIAC: Mild tachycardia. I do not appreciate a murmur. VASCULAR: [Peripheral pulses normal and equal in all extremities.] ABDOMEN: [Soft, without detectable tenderness. No sign of distention. No rebound or guarding, and no masses palpated.] MUSCULOSKELETAL: Pain with range of motion of the right knee. There is a palpable joint effusion. Distal neurovascular function is intact. Bilateral lower extremity edema. Bilateral upper extremity edema. NEUROLOGIC EXAM: [Alert and oriented x 3.] [No focal sensory or motor deficits. ] [ Speech normal.] [ Follows commands.] PSYCHIATRIC: Anxious. No hallucinations or depression or suicidal ideations. SKIN: Bilateral blisters between the toes. This is in between the great toes and the second toe. The right is worse than the left. There is some purulent drainage and surrounding mild cellulitis Initial Differential Diagnosis & Plan: Cellulitis, abscess, septic arthritis, joint effusion, heart failure, endocarditis. In the past the patient reports that she has used IV injection drugs. She would denies any IV injection drugs with this methamphetamine chau. I am suspicious that she may have had bacteremia and so I will perform arthrocentesis of the knee. I will obtain labs to include CBC, basic metabolic panel, troponin, BNP, EKG and chest x-ray. I will also add a CRP. Definitive disposition and diagnosis as appropriate pending reevaluation and review of above. Right knee Pain Score (Numeric/FACES): 10 - Related Data Allergies Allergy/AdvReac Type Severity Reaction Status Date / Time ondansetron Allergy Rash Verified 04/15/20 09:22 [From Zofran (as hydrochloride)] tramadol Allergy Seizure Verified 04/15/20 09:22 Home Meds: Home Meds Doxepin [SINEquan] 100 mg PO BEDTIME 12/20/17 [History] OLANZapine [Olanzapine] 10 mg PO BEDTIME 12/20/17 [History] Propranolol [Inderal] 20 mg PO DAILY 02/27/19 [History] levETIRAcetam [Keppra] 250 mg PO TID 03/17/19 [History] Acetaminophen [Tylenol Extra Strength] 1,000 mg PO Q6HR PRN #60 tablet 04/15/20 [Rx] Ibuprofen [Motrin] 600 mg PO Q6H PRN #30 tab 04/15/20 [Rx] Lactobacillus 3/Fos/Pantethine [Probiotic & Acidophilus] 1 each PO BID 30 Days # 60 capsule 04/15/20 [Rx] Sulfamethoxazole/Trimethoprim [Bactrim Ds Tablet] 2 each PO BID 14 Days tablet 04/15/20 [Rx] cephALEXin [Keflex] 1,000 mg PO TID 7 Days #42 capsule 04/15/20 [Rx] Past Medical History HEENT History: Reports: None Cardiovascular History: Reports: Arrhythmia, Hypertension Other Cardiovascular History: pt states "i have tachycardia" Respiratory History: Reports: PE Gastrointestinal History: Reports: None Genitourinary History: Reports: UTI, Recurrent [employer]ING History: Reports: Other [employer]INE[employer]ING History: Ovarian cyst Musculoskeletal History: Reports: Neck Pain, Chronic Neurological History: Reports: Seizure, Other (See Below) Other Neuro History: epilepsy Psychiatric History: Reports: Anxiety, Depression Endocrine/Metabolic History: Reports: None Hematologic History: Reports: Other (See Below) Other Hematologic History: clotting disorder Immunologic History: Reports: None Oncologic (Cancer) History: Reports: None Dermatologic History: Reports: None - Infectious Disease History Infectious Disease History: Reports: None - Past Surgical History Female Surgical History: Reports: Section, D&C, Tubal Ligation Social & Family History - Family History Family Medical History: Noncontributory Psychiatric: Reports: Anxiety, Depression, Emotional Problems - Tobacco Use Smoking Status *Q: Current Status Unknown - Caffeine Use Caffeine Use: Reports: Coffee - Recreational Drug Use Recreational Drug Use: Yes Recreational Drug Type: Reports: Cocaine, Marijuana/Hashish, Methamphetamine Recreational Drug Use Frequency: Binges - Living Situation & Occupation Living situation: Reports: with Spouse Review of Systems - Review of Systems Review Of Systems: Unable To Obtain (noted) Reason Not Obtained: noted ED EXAM, GENERAL - Physical Exam Exam: See Below (noted) ED TRAUMA EXTREMITY PROCEDURES - I&D Progress/Comments: PROCEDURE NOTE: ARTHROCENTESIS Ultrasound Guided: No Joint: Right knee Indication: Evaluation of effusion Anesthesia: local, 1% lidocaine w/Epi Technique: After informed consent was obtained the area was cleansed and prepped in a normal aseptic technique. Needle introduced into the joint space. Fluid: 20 mL. Clear/straw-colored. Complications: none Procedure note: Attempted ring removal Bar consent Initially attempted with K-Y jelly. This did not work. Then I wrapped the ring with suture. This did not work. Then we tried wrapping with umbilical tape this did not work. We tried cutting the tungsten ring and we were unable to cut with the ring cutters. We will call a jeweler to see if they can remove a tungsten ring. 10:47 AM Patient reports that she has called her significant other and they will forego having us attempt more ring removals. They will go to the jeweler afterwards. Course - Vital Signs Last Recorded V/S: Last Vital Signs Temp 97.1 F 04/15/20 09:23 Pulse 92 04/15/20 09:23 Resp 18 04/15/20 09:23 BP 123/72 04/15/20 09:23 Pulse Ox 97 04/15/20 09:23 - Orders/Labs/Meds Orders: Active Orders 24 hr Category Date Time Status CULTURE BLOOD [BC] Stat Lab 04/15/20 10:59 Received CULTURE BODY FLUID + SMEAR [RM] Stat Lab 04/15/20 09:53 Results Blood Culture x2 Reflex Set [OM.PC] Stat Oth 04/15/20 10:45 Ordered Labs: Laboratory Tests 04/15/20 04/15/20 04/15/20 Range/Units 07:53 11:31 11:31 WBC 4.05 (4.0-11.0) K/uL RBC 3.66 L (4.30-5.90) M/uL Hgb 11.4 L (12.0-16.0) g/dL Hct 34.4 L (36.0-46.0) % MCV 94.0 (80.0-98.0) fL MCH 31.1 (27.0-32.0) pg MCHC 33.1 (31.0-37.0) g/dL RDW Std Deviation 44.4 (28.0-62.0) fl RDW Coeff of Michelle 13 (11.0-15.0) % Plt Count 220 (150-400) K/uL MPV 10.20 (7.40-12.00) fL Neut % (Auto) 49.4 (48.0-80.0) % Lymph % (Auto) 38.5 (16.0-40.0) % Mckean % (Auto) 8.9 (0.0-15.0) % Eos % (Auto) 2.7 (0.0-7.0) % Baso % (Auto) 0.5 (0.0-1.5) % Neut # (Auto) 2.0 (1.4-5.7) K/uL Lymph # (Auto) 1.6 (0.6-2.4) K/uL Mckean # (Auto) 0.4 (0.0-0.8) K/uL Eos # (Auto) 0.1 (0.0-0.7) K/uL Baso # (Auto) 0.0 (0.0-0.1) K/uL Nucleated RBC % 0.0 /100WBC Nucleated RBCs # 0 K/uL Sodium 139 (136-145) mmol/L Potassium 3.9 (3.5-5.1) mmol/L Chloride 105 (98-107) mmol/L Carbon Dioxide 26.9 (21.0-32.0) mmol/L BUN 7 (7.0-18.0) mg/dL Creatinine 0.6 (0.6-1.0) mg/dL Est Cr Clr Drug Dosing 139.30 mL/min Estimated GFR (MDRD) > 60.0 ml/min Glucose 90 (74-106) mg/dL Calcium 8.3 L (8.5-10.1) mg/dL Troponin I < 0.050 (0.000-0.056) ng/mL C-Reactive Protein 3.40 H (0.00-0.90) mg/dL B-Natriuretic Peptide (<100) PG/ML Fluid Type SYN Fluid Color YELLOW Fluid Appearance CLEAR Fluid WBC 929 /uL Fluid RBC < 3000 /uL Fluid Mononuclear Cell 48 % Fl Polymorphonucl Cell 52 % Fluid Crystals NONE SEEN 04/15/20 Range/Units 11:31 WBC (4.0-11.0) K/uL RBC (4.30-5.90) M/uL Hgb (12.0-16.0) g/dL Hct (36.0-46.0) % MCV (80.0-98.0) fL MCH (27.0-32.0) pg MCHC (31.0-37.0) g/dL RDW Std Deviation (28.0-62.0) fl RDW Coeff of Michelle (11.0-15.0) % Plt Count (150-400) K/uL MPV (7.40-12.00) fL Neut % (Auto) (48.0-80.0) % Lymph % (Auto) (16.0-40.0) % Mckean % (Auto) (0.0-15.0) % Eos % (Auto) (0.0-7.0) % Baso % (Auto) (0.0-1.5) % Neut # (Auto) (1.4-5.7) K/uL Lymph # (Auto) (0.6-2.4) K/uL Mckean # (Auto) (0.0-0.8) K/uL Eos # (Auto) (0.0-0.7) K/uL Baso # (Auto) (0.0-0.1) K/uL Nucleated RBC % /100WBC Nucleated RBCs # K/uL Sodium (136-145) mmol/L Potassium (3.5-5.1) mmol/L Chloride (98-107) mmol/L Carbon Dioxide (21.0-32.0) mmol/L BUN (7.0-18.0) mg/dL Creatinine (0.6-1.0) mg/dL Est Cr Clr Drug Dosing mL/min Estimated GFR (MDRD) ml/min Glucose (74-106) mg/dL Calcium (8.5-10.1) mg/dL Troponin I (0.000-0.056) ng/mL C-Reactive Protein (0.00-0.90) mg/dL B-Natriuretic Peptide 102 H (<100) PG/ML Fluid Type Fluid Color Fluid Appearance Fluid WBC /uL Fluid RBC /uL Fluid Mononuclear Cell % Fl Polymorphonucl Cell % Fluid Crystals Meds: Medications Discontinued Medications Generic Name Dose Route Start Last Admin Trade Name Vlad PRN Reason Stop Dose Admin Hydrocodone Bitart/Acetaminophen 2 tab 04/15/20 09:45 04/15/20 10:46 Eva 325-5 Mg PO 04/15/20 09:46 Not Given ONETIME ONE Cephalexin 1,000 mg 04/15/20 09:45 04/15/20 10:45 Keflex PO 04/15/20 09:46 1,000 mg ONETIME ONE Administration Ibuprofen 600 mg 04/15/20 09:45 04/15/20 10:45 Motrin PO 04/15/20 09:46 600 mg ONETIME ONE Administration Lidocaine/Epinephrine 20 ml 04/15/20 09:42 04/15/20 10:01 Xylocaine 1% With Epinephrine 1:100,000 INJECT 04/15/20 09:43 20 ml ONETIME ONE Administration Trimethoprim/Sulfamethoxazole 2 tab 04/15/20 09:45 04/15/20 10:45 Septra Ds PO 04/15/20 09:46 2 tab ONETIME ONE Administration - Re-Assessments/Exams Free Text/Narrative Re-Assessment/Exam: 04/15/20 13:07 The patient does not have evidence of endorgan dysfunction or congestive heart failure. Likely third spacing secondary to going on a methamphetamine/ amphetamine chau the other day that landed her in the emergency department. She has lower extremity cellulitis secondary to walking him her thongs/flip- flops for many hours. This is now causing infection. I will treat her with antibiotics. I have advised her to go to the [facility] which was her plan to get her ring removed off of her finger. Her arthrocentesis shows no evidence of infection. Gram stain negative. White count very low. Cultures pending. My diagnostic impression: 1. Right knee effusion 2. Bilateral lower extremity cellulitis/in between the toes cellulitis 3. Bilateral edema 4. Tungsten ring unable to remove with swelling of the finger and hand. Distal neurovascular function intact. Departure - Departure Time of Disposition: 13:09 Disposition: Home, Self-Care 01 Clinical Impression: Cellulitis and abscess of foot, Edema, Amphetamine abuse, episodic, Knee effusion, right - Discharge Information *PRESCRIPTION DRUG MONITORING PROGRAM REVIEWED*: Not Applicable *COPY OF PRESCRIPTION DRUG MONITORING REPORT IN PATIENT RATNA: Not Applicable Prescriptions: Acetaminophen [Tylenol Extra Strength] 1,000 mg PO Q6HR PRN #60 tablet PRN Reason: Pain cephALEXin [Keflex] 1,000 mg PO TID 7 Days #42 capsule Ibuprofen [Motrin] 600 mg PO Q6H PRN #30 tab PRN Reason: Pain Lactobacillus 3/Fos/Pantethine [Probiotic & Acidophilus] 1 each PO BID 30 Days # 60 capsule Sulfamethoxazole/Trimethoprim [Bactrim Ds Tablet] 2 each PO BID 14 Days tablet Instructions: Cellulitis, Adult, Knee Effusion, Edema, [id number], Knee Arthrocentesis, Care After Referrals: Ramesh Monterroso MD [Primary Care Provider] - Forms: ED Department Discharge Additional Instructions: The following information is given to patients seen in the emergency department who are being discharged to home. This information is to outline your options for follow-up care. We provide all patients seen in our emergency department with a follow-up referral. The need for follow-up, as well as the timing and circumstances, are variable depending upon the specifics of your emergency department visit. If you don't have a primary care physician on staff, we will provide you with a referral. We always advise you to contact your personal physician following an emergency department visit to inform them of the circumstance of the visit and for follow-up with them and/or the need for any referrals to a consulting specialist. The emergency department will also refer you to a specialist when appropriate. This referral assures that you have the opportunity for follow-up care with a specialist. All of these measure are taken in an effort to provide you with optimal care, which includes your follow-up. Under all circumstances we always encourage you to contact your private physician who remains a resource for coordinating your care. When calling for follow-up care, please make the office aware that this follow-up is from your recent emergency room visit. If for any reason you are refused follow-up, please contact the [facility] Emergency Department at and asked to speak to the emergency department charge nurse. Thank you for coming to [facility] emergency department for your emergency care today. Please make a follow-up appointment with your primary care doctor. You have cellulitis in between your toes from ruptured blisters. Please take the antibiotics as prescribed. These are 2 antibiotics. Please take the probiotics with them. Please use the antibiotic ointment provided. Please go immediately to the jeweler and have your tungsten ring removed. Your arthrocentesis (draining of your knee) does not show evidence of infection. Please return for worsening infection, fevers, nausea and vomiting, or any other concerns. Sepsis Event Note - Evaluation Sepsis Screening Result: No Definite Risk - Focused Exam Vital Signs: Vital Signs Temp Pulse Resp BP Pulse Ox 04/15/20 09:23 97.1 F 92 18 123/72 97 Date Exam was Performed: 04/15/20 Time Exam was Performed: 13:14 - My Orders Last 24 Hours: My Active Orders 04/15/20 09:53 CULTURE BODY FLUID + SMEAR [RM] Stat 04/15/20 10:45 Blood Culture x2 Reflex Set [OM.PC] Stat 04/15/20 10:59 CULTURE BLOOD [BC] Stat - Assessment/Plan Last 24 Hours: My Active Orders 04/15/20 09:53 CULTURE BODY FLUID + SMEAR [RM] Stat 04/15/20 10:45 Blood Culture x2 Reflex Set [OM.PC] Stat 04/15/20 10:59 CULTURE BLOOD [BC] Stat
--- NOTE | 2020-04-15 11:39 | CR ---
Chest: Portable view of the chest was obtained. Comparison: Previous chest x-ray of 04/14/20. Heart size and mediastinum are normal. Lungs are clear with no acute parenchymal change. Bony structures shows prior resection of the distal left clavicle. Minimal scoliosis is also noted within the spine. Impression: 1. Nothing acute is appreciated on portable chest x-ray. Diagnostic code #2 This report was dictated in MDT
[2020-04-15 12:42] LABS: BLOOD UREA NITROGEN,BUN 7 mg/dL (7.0-18.0); CARBON DIOXIDE,CO2 26.9 mmol/L (21.0-32.0); CHLORIDE,CL 105 mmol/L (98-107); GLUCOSE RANDOM 90 mg/dL (74-106); POTASSIUM,K 3.9 mmol/L (3.5-5.1); SODIUM,NA 139 mmol/L (136-145)
[2020-04-15 13:59] VITALS: BP 100/62; PULSE 72
== END 2020-04-15 14:01 | disposition home or self-care (01) ==
LOC: MW.ED 09:08
DX: L03.116 Cellulitis of left lower limb (principal); L03.115 Cellulitis of right lower limb; M25.461 Effusion, right knee; F15.10 Other stimulant abuse, uncomplicated; I10 Essential (primary) hypertension; F41.9 Anxiety disorder, unspecified; F32.9 Major depressive disorder, single episode, unspecified; R56.9 Unspecified convulsions; Z87.440 Personal history of urinary (tract) infections; Z88.6 Allergy status to analgesic agent; Z88.8 Allergy status to other drugs, medicaments and biological substances; Z79.899 Other long term (current) drug therapy; Z86.711 Personal history of pulmonary embolism
CPT/HCPCS: 20610; 36415; 71045; 71045-26; 80048; 83880; 84484; 85025; 86140; 87040; 87070; 87205; 89050; 89060; 99283; 99284-25; A9270-GY

== ENCOUNTER 2020-05-04 21:14 | Emergency (ER) | payer MEDICAID ==
[2020-05-04] MEDS ORDERED: Sodium Chloride 0.9% 2.5 ML Syringe FLUSH PRN (21:19)
[2020-05-04] MEDS ORDERED: Sodium Chloride 0.9% 1,000 ML IV ONE (21:19)
[2020-05-04] MEDS ORDERED: Sodium Chloride 0.9% 10 ML Syringe FLUSH PRN (21:19)
--- NOTE | 2020-05-04 21:24 | EDM.PDOC ---
ED HPI GENERAL MEDICAL PROBLEM - General Chief Complaint: General Stated Complaint: CHEST PAIN/DIZZINESS Time Seen by Provider: 05/04/20 21:19 Source of Information: Reports: Patient History Limitations: Reports: No Limitations - History of Present Illness INITIAL COMMENTS - FREE TEXT/NARRATIVE: 39-year-old female with history of seizures, polysubstance abuse presents with midsternal chest pain. She was laying down watching TV about 2 hours ago and started developing gradual onset midsternal chest pressure, rated at 5/10. Associated with shortness of breath, nausea, vomiting, palpitation, dizziness. Her last meth use was yesterday, she smoked it. She took Xanax today and smoked heroin today and drank 2 shots of fireball today. She also notes a gradual onset diffuse head pressure burning sensation for 1 hour. She did not take her seizure meds today. ROS: A 10-point review of systems, other than pertinent positives and negatives as stated per HPI, is otherwise negative PHYSICAL EXAM General: AOx4, GCS = 15, no distress. HEENT: dry mucous membrane Neck: supple, no meningismus, no Kernig or Brudzinski Cardiac: S1S2 tachycardia Respiratory: CTAB, no crackles or rales, no wheezing Abdomen: Soft, nontender, no rebound or guarding, nondistended, no pulsatile mass. Back: nontender Musculoskeletal: NVI distally, no deformity Neuro: No focal deficits chest Pain Score (Numeric/FACES): 6 - Related Data Allergies Allergy/AdvReac Type Severity Reaction Status Date / Time ondansetron Allergy Rash Verified 05/04/20 21:21 [From Zofran (as hydrochloride)] tramadol Allergy Seizure Verified 05/04/20 21:21 Home Meds: Home Meds Doxepin [SINEquan] 100 mg PO BEDTIME 12/20/17 [History] OLANZapine [Olanzapine] 10 mg PO BEDTIME 12/20/17 [History] Propranolol [Inderal] 20 mg PO DAILY 02/27/19 [History] levETIRAcetam [Keppra] 250 mg PO TID 03/17/19 [History] Ibuprofen [Motrin] 600 mg PO Q6H PRN #30 tab 04/15/20 [Rx] Past Medical History HEENT History: Reports: None Cardiovascular History: Reports: Arrhythmia, Hypertension Other Cardiovascular History: pt states "i have tachycardia" Respiratory History: Reports: PE Gastrointestinal History: Reports: None Genitourinary History: Reports: UTI, Recurrent OUTBOARD TECHNICIAN History: Reports: Other OUTBOARD TECHNICIAN History: Ovarian cyst Musculoskeletal History: Reports: Neck Pain, Chronic Neurological History: Reports: Seizure, Other (See Below) Other Neuro History: epilepsy Psychiatric History: Reports: Anxiety, Depression Endocrine/Metabolic History: Reports: None Hematologic History: Reports: Other (See Below) Other Hematologic History: clotting disorder Immunologic History: Reports: None Oncologic (Cancer) History: Reports: None Dermatologic History: Reports: None - Infectious Disease History Infectious Disease History: Reports: None - Past Surgical History Female Surgical History: Reports: Section, D&C, Tubal Ligation Social & Family History - Family History Family Medical History: Noncontributory Psychiatric: Reports: Anxiety, Depression, Emotional Problems - Caffeine Use Caffeine Use: Reports: Coffee - Living Situation & Occupation Living situation: Reports: with Spouse ED ROS GENERAL - Review of Systems Review Of Systems: Comprehensive ROS is negative, except as noted in HPI. ED EXAM, GENERAL - Physical Exam Exam: See Below (see dictation) ED GENERAL MEDICAL PROCEDURES - Additional/Other Procedure(s) Other (Free Text) Procedure(s): Alcohol Cessation Counseling: The patient was counseled as to the multiple risks to their health from continued use of alcohol. It was explained that continuing to drink alcohol may lead to multiple short and terminal clerk negative health consequences, including but not limited to liver disease. The patient states they understands these risks, and also understands the options and resources available to them to help them stop drinking. Local resources were discussed as viable options for helping them manage their alcohol intake. The total time spent: 3 minutes. Drug Cessation Counseling: The patient was counseled as to the multiple risks to their health from continued use of drugs. It was explained that continuing to use drugs may lead to multiple short and terminal clerk negative health consequences. The patient states they understands these risks, and also understands the options and resources available to them to help them stop using drugs. Local resources were discussed as viable options for helping them manage their drug use. The total time spent: 3 minutes. Smoking Cessation Counseling: The patient was counseled as to the multiple risks to their health from continued use of tobacco products. It was explained that continuing to smoke may lead to multiple short and prison negative health consequences, including but not limited to mouth/esophageal/lung cancer, COPD, and heart disease. The patient states they understands these risks, and also understands the options and resources available to them to help them stop smoking. Nicotine replacement therapy, local hotlines, and local resources were discussed as viable options for helping them stop their tobacco use. Total time spent: 3 minutes. EKG INTERPRETATION EKG Interpretation Comments: 97 Bpm, NSR, normal QRS interval, no STEMI. EKG and rhythm strip interpreted by me at 2121 Course - Vital Signs Last Recorded V/S: Last Vital Signs Temp 97.5 F 05/04/20 21: Pulse 108 H 05/04/20 21:23 Resp 22 H 05/04/20 21:23 BP 134/82 05/04/20 21:23 Pulse Ox 98 05/04/20 21:23 - Orders/Labs/Meds Orders: Active Orders 24 hr Category Date Time Status Cardiac Monitoring [RC] . DIRECTED Care 05/04/20 21:19 Active EKG Documentation Completion [RC] STAT Care 05/04/20 21:19 Active Pulse Oximetry [RC] ASDIRECTED Care 05/04/20 21:19 Active DRUG SCREEN, URINE [URCHEM] Stat Lab 05/04/20 21:20 Ordered HCG QUALITATIVE,URINE [URCHEM] Stat Lab 05/04/20 21:20 Ordered UA W/MICROSCOPIC [URIN] Stat Lab 05/04/20 21:20 Ordered Sodium Chloride 0.9% [Normal Saline] 1,000 ml Med 05/04/20 21:19 Active IV BOLUS Sodium Chloride 0.9% [Saline Flush] Med 05/04/20 21:19 Active 10 ml FLUSH ASDIRECTED PRN Sodium Chloride 0.9% [Saline Flush] Med 05/04/20 21:19 Active 2.5 ml FLUSH ASDIRECTED PRN Saline Lock Insert [OM.PC] Stat Oth 05/04/20 21:19 Ordered Medication Orders Sodium Chloride (Normal Saline) 1,000 mls @ 999 mls/hr IV BOLUS ONE Stop: 05/04/20 22:19 Last Admin: 05/04/20 21:40 Dose: 999 mls/hr Documented by: [email or web address] Sodium Chloride (Saline Flush) 10 ml FLUSH ASDIRECTED PRN PRN Reason: Keep Vein Open Sodium Chloride (Saline Flush) 2.5 ml FLUSH ASDIRECTED PRN PRN Reason: Keep Vein Open Labs: Laboratory Tests 05/04/20 05/04/20 Range/Units 21:35 21:35 WBC 4.61 (4.0-11.0) K/uL RBC 3.79 L (4.30-5.90) M/uL Hgb 11.8 L (12.0-16.0) g/dL Hct 34.9 L (36.0-46.0) % MCV 92.1 (80.0-98.0) fL MCH 31.1 (27.0-32.0) pg MCHC 33.8 (31.0-37.0) g/dL RDW Std Deviation 41.7 (28.0-62.0) fl RDW Coeff of Michelle 12 (11.0-15.0) % Plt Count 273 (150-400) K/uL MPV 9.80 (7.40-12.00) fL Neut % (Auto) 35.7 L (48.0-80.0) % Lymph % (Auto) 54.2 H (16.0-40.0) % [place] % (Auto) 7.2 (0.0-15.0) % Eos % (Auto) 2.2 (0.0-7.0) % Baso % (Auto) 0.7 (0.0-1.5) % Neut # (Auto) 1.7 (1.4-5.7) K/uL Lymph # (Auto) 2.5 H (0.6-2.4) K/uL [place] # (Auto) 0.3 (0.0-0.8) K/uL Eos # (Auto) 0.1 (0.0-0.7) K/uL Baso # (Auto) 0.0 (0.0-0.1) K/uL Nucleated RBC % 0.0 /100WBC Nucleated RBCs # 0 K/uL Sodium 140 (136-145) mmol/L Potassium 3.9 (3.5-5.1) mmol/L Chloride 104 (98-107) mmol/L Carbon Dioxide 27.6 (21.0-32.0) mmol/L BUN 12 (7.0-18.0) mg/dL Creatinine 0.9 (0.6-1.0) mg/dL Est Cr Clr Drug Dosing 92.87 mL/min Estimated GFR (MDRD) > 60.0 ml/min Glucose 102 (74-106) mg/dL Calcium 8.1 L (8.5-10.1) mg/dL Total Bilirubin 0.2 (0.2-1.0) mg/dL AST 62 H (15-37) IU/L ALT 39 (14-63) IU/L Alkaline Phosphatase 82 (46-116) U/L Troponin I <0.050 (0.000-0.056) ng/mL Total Protein 7.1 (6.4-8.2) g/dL Albumin 3.6 (3.4-5.0) g/dL Globulin 3.5 (2.6-4.0) g/dL Albumin/Globulin Ratio 1.0 (0.9-1.6) Meds: Medications Generic Name Dose Route Start Last Admin Trade Name Freq PRN Reason Stop Dose Admin Sodium Chloride 1,000 mls @ 999 mls/hr 05/04/20 21:19 05/04/20 21:40 Normal Saline IV 05/04/20 22:19 999 mls/hr BOLUS ONE Administration Sodium Chloride 10 ml 05/04/20 21:19 Saline Flush FLUSH ASDIRECTED PRN Keep Vein Open Sodium Chloride 2.5 ml 05/04/20 21:19 Saline Flush FLUSH ASDIRECTED PRN Keep Vein Open Discontinued Medications Generic Name Dose Route Start Last Admin Trade Name Freq PRN Reason Stop Dose Admin Levetiracetam 1,000 mg/ 110 mls @ 440 mls/hr 05/04/20 21:56 Dextrose/Water IV 05/04/20 22:10 Q12H STA Naloxone HCl 1 mg 05/04/20 21:51 Narcan IVPUSH 05/04/20 21:52 ONETIME ONE - Re-Assessments/Exams Free Text/Narrative Re-Assessment/Exam: 05/04/20 21:51: patient was dozing off, she desat to 83% with nml pleth. She has pinpoint pupils. 1 mg IV Narcan ordered. Orderd 1gm keppra IV due to med noncompliance today. 05/04/20 21:59: She is choosing to leave against medical advice after hearing she'll get narcan. I personally explained to the patient that choosing to do so may result in permanent bodily harm or . I discussed at great length that without further evaluation and monitoring there may be unforeseen circumstances and deterioration causing permanent bodily harm or as a result of their choice. She is alert, oriented, and competent at this time. The patient states that they are aware of the serious risks as explained, but they still choose to leave against medical advice. She is aware that they did not allow us to complete her evaluation, and there is still the possibility that an emergency condition could exist. This has been thoroughly explained to the patient and the patient has indicated your understanding of such. She is assuming all risk and liability for such a condition, or for such a condition subsequently developing. The patient is doing so at their own free will, with a full knowledge of the potential consequences of these actions. She was encouraged to return at any time should they experience any changes about evaluation, or should they develop any new or worsening symptoms that concerns them. Departure - Departure Time of Disposition: 22:01 Disposition: Against Medical Advice 07 Condition: Good Clinical Impression: Amphetamine abuse, episodic, Atypical chest pain, Alcohol abuse, Drug abuse, Methamphetamine abuse, Polysubstance abuse - Discharge Information *PRESCRIPTION DRUG MONITORING PROGRAM REVIEWED*: Not Applicable *COPY OF PRESCRIPTION DRUG MONITORING REPORT IN PATIENT RATNA: Not Applicable Instructions: Alcohol Use Disorder, Nonspecific Chest Pain, Adult, Stimulant Use Disorder-Methamphetamines Referrals: Ramesh Monterroso MD [Primary Care Provider] - Forms: ED Department Discharge Additional Instructions: The following information is given to patients seen in the emergency department who are being discharged to home. This information is to outline your options for follow-up care. We provide all patients seen in our emergency department with a follow-up referral. The need for follow-up, as well as the timing and circumstances, are variable depending upon the specifics of your emergency department visit. If you don't have a primary care physician on staff, we will provide you with a referral. We always advise you to contact your personal physician following an emergency department visit to inform them of the circumstance of the visit and for follow-up with them and/or the need for any referrals to a consulting specialist. The emergency department will also refer you to a specialist when appropriate. This referral assures that you have the opportunity for follow-up care with a specialist. All of these measure are taken in an effort to provide you with optimal care, which includes your follow-up. Under all circumstances we always encourage you to contact your private physician who remains a resource for coordinating your care. When calling for follow-up care, please make the office aware that this follow-up is from your recent emergency room visit. If for any reason you are refused follow-up, please contact the [facility] Emergency Department at and asked to speak to the emergency department charge nurse. Please stop using drugs, it's bad for your health. If you do not have a primary care doctor, please follow up with the clinics below within 3-5 days. [facility] [address] [place] [id number] [place] [address] Sepsis Event Note (ED) - Focused Exam Vital Signs: Vital Signs Temp Pulse Resp BP Pulse Ox 05/04/20 21:23 97.5 F 108 H 22 H 134/82 98 - My Orders Last 24 Hours: My Active Orders 05/04/20 21:19 Cardiac Monitoring [RC] . DIRECTED EKG Documentation Completion [RC] STAT Pulse Oximetry [RC] ASDIRECTED Sodium Chloride 0.9% [Normal Saline] 1,000 ml IV BOLUS Sodium Chloride 0.9% [Saline Flush] 10 ml FLUSH ASDIRECTED PRN Sodium Chloride 0.9% [Saline Flush] 2.5 ml FLUSH ASDIRECTED PRN Saline Lock Insert [OM.PC] Stat 05/04/20 21:20 DRUG SCREEN, URINE [URCHEM] Stat HCG QUALITATIVE,URINE [URCHEM] Stat UA W/MICROSCOPIC [URIN] Stat - Assessment/Plan Last 24 Hours: My Active Orders 05/04/20 21:19 Cardiac Monitoring [RC] . DIRECTED EKG Documentation Completion [RC] STAT Pulse Oximetry [RC] ASDIRECTED Sodium Chloride 0.9% [Normal Saline] 1,000 ml IV BOLUS Sodium Chloride 0.9% [Saline Flush] 10 ml FLUSH ASDIRECTED PRN Sodium Chloride 0.9% [Saline Flush] 2.5 ml FLUSH ASDIRECTED PRN Saline Lock Insert [OM.PC] Stat 05/04/20 21:20 DRUG SCREEN, URINE [URCHEM] Stat HCG QUALITATIVE,URINE [URCHEM] Stat UA W/MICROSCOPIC [URIN] Stat
[2020-05-04 21:25] VITALS: BP 134/82; PULSE 108
[2020-05-04] MEDS ORDERED: Naloxone 0.4 MG/ML Syringe IVPUSH ONE (21:51)
[2020-05-04 22:05] LABS: BLOOD UREA NITROGEN,BUN 12 mg/dL (7.0-18.0); CARBON DIOXIDE,CO2 27.6 mmol/L (21.0-32.0); CHLORIDE,CL 104 mmol/L (98-107); GLUCOSE RANDOM 102 mg/dL (74-106); POTASSIUM,K 3.9 mmol/L (3.5-5.1); SODIUM,NA 140 mmol/L (136-145)
--- NOTE | 2020-05-04 22:06 | CR ---
Chest: Portable view of the chest was obtained. Comparison: Prior chest x-ray of 04/15/20. Heart size and mediastinum are normal. Lungs are clear with no acute parenchymal change. Bony structures shows minimal scoliosis within the spine. Prior resection of the distal left clavicle. No acute osseous finding is seen. Impression: 1. Nothing acute is seen on portable chest x-ray. Diagnostic code #2 Study was dictated in MDT
== END 2020-05-04 22:10 | disposition left against medical advice (07) ==
LOC: MW.ED 21:14
DX: R07.89 Other chest pain (principal); F15.10 Other stimulant abuse, uncomplicated; F10.10 Alcohol abuse, uncomplicated; F19.10 Other psychoactive substance abuse, uncomplicated; I10 Essential (primary) hypertension; R56.9 Unspecified convulsions; Z79.899 Other long term (current) drug therapy; Z88.5 Allergy status to narcotic agent; Z88.8 Allergy status to other drugs, medicaments and biological substances; Z86.711 Personal history of pulmonary embolism
CPT/HCPCS: 36415; 71045; 80053; 84484; 85025; 93005; 99285; J7030; 99283

== ENCOUNTER 2020-06-30 22:27 | Emergency (ER) | payer MEDICAID ==
[2020-06-30] MEDS ORDERED: Sodium Chloride 0.9% 2.5 ML Syringe FLUSH PRN (22:53)
[2020-06-30] MEDS ORDERED: Sodium Chloride 0.9% 1,000 ML IV ONE (22:53)
[2020-06-30] MEDS ORDERED: LORazepam 2 MG/ML SDV IVPUSH ONE (22:53)
[2020-06-30] MEDS ORDERED: Sodium Chloride 0.9% 10 ML Syringe FLUSH PRN (22:53)
--- NOTE | 2020-06-30 23:04 | EDM.PDOC ---
ED HPI GENERAL MEDICAL PROBLEM - General Chief Complaint: General Stated Complaint: TROUBLE SWALLOWING Time Seen by Provider: 06/30/20 22:30 Source of Information: Reports: Patient History Limitations: Reports: No Limitations - History of Present Illness INITIAL COMMENTS - FREE TEXT/NARRATIVE: History of present illness: [Patient is 39-year-old female who presents with difficulty swallowing. She states that 3 days ago she used some mineral oil to help with some digestive issues. She states shortly after taking the mineral oil she felt some pain in her throat and associated difficulty swallowing. She read that this could be a side effect from taking this mineral oil which made her anxious. She has a history of panic attacks and anxiety. She states over the last 3 days she has had difficulty swallowing, she is able to swallow her own saliva and small amounts of water and she was able to get some pills down yesterday. But she states that she is having a very difficult time eating any food. She denies any history of major allergic reactions, no history of anaphylaxis, denies any change in the nature of her voice. She denies fever. Denies chest pain, shortness of breath, blurry vision, headache, URI symptoms. Has not tried any other medications to try and treat her symptoms at home.] Review of systems: As per history of present illness and below otherwise all systems reviewed and negative. Past medical history: As per history of present illness and as reviewed below otherwise noncontributory. Surgical history: As per history of present illness and as reviewed below otherwise noncontributory. Social history: No reported history of drug or alcohol abuse. Family history: As per history of present illness and as reviewed below otherwise no ncontributory. Physical exam: General: Awake, alert, no acute distress, A&O X3. HEENT: Atraumatic, normocephalic, pupils reactive, negative for conjunctival pallor or scleral icterus, mucous membranes moist, throat clear, neck supple, nontender, trachea midline. no stridor, no goiter or mass of the neck. no LAD. Lungs: Clear to auscultation, breath sounds equal bilaterally, chest nontender. Heart: RRR, normal S1S2, no JVD. Abdomen: Soft, nondistended, nontender. Negative for masses or hepatosplenomegaly. Negative for costovertebral tenderness. Pelvis: Stable nontender. Genitourinary: Deferred. Rectal: Deferred. Extremities: Atraumatic, no edema, Neurovascular unremarkable. Neuro: Motor and sensory grossly intact throughout. Exam nonfocal. Diagnostics: [] Therapeutics: [] Impression: [] Plan: [] Definitive disposition and diagnosis as appropriate pending reevaluation and review of above. - Related Data Allergies Allergy/AdvReac Type Severity Reaction Status Date / Time ondansetron Allergy Rash Verified 06/30/20 22:41 [From Zofran (as hydrochloride)] tramadol Allergy Seizure Verified 06/30/20 22:41 Home Meds: Home Meds Doxepin [SINEquan] 100 mg PO BEDTIME 12/20/17 [History] OLANZapine [Olanzapine] 10 mg PO BEDTIME 12/20/17 [History] Propranolol [Inderal] 20 mg PO DAILY 02/27/19 [History] levETIRAcetam [Keppra] 250 mg PO TID 03/17/19 [History] Ibuprofen [Motrin] 600 mg PO Q6H PRN #30 tab 04/15/20 [Rx] Past Medical History HEENT History: Reports: None Cardiovascular History: Reports: Arrhythmia, Hypertension Other Cardiovascular History: pt states "i have tachycardia" Respiratory History: Reports: PE Gastrointestinal History: Reports: None Genitourinary History: Reports: UTI, Recurrent [employer] History: Reports: Other [employer] History: Ovarian cyst Musculoskeletal History: Reports: Neck Pain, Chronic Neurological History: Reports: Seizure, Other (See Below) Other Neuro History: epilepsy Psychiatric History: Reports: Anxiety, Depression Endocrine/Metabolic History: Reports: None Hematologic History: Reports: Other (See Below) Other Hematologic History: clotting disorder Immunologic History: Reports: None Oncologic (Cancer) History: Reports: None Dermatologic History: Reports: None - Infectious Disease History Infectious Disease History: Reports: None - Past Surgical History Female Surgical History: Reports: Section, D&C, Tubal Ligation Social & Family History - Family History Family Medical History: Noncontributory Psychiatric: Reports: Anxiety, Depression, Emotional Problems - Tobacco Use Smoking Status *Q: Current Every Day Smoker Years of Tobacco use: 20 Packs/Tins Daily: 1 - Caffeine Use Caffeine Use: Reports: None - Alcohol Use Days Per Week of Alcohol Use: 1 Number of Drinks Per Day: 1 Total Drinks Per Week: 1 - Recreational Drug Use Recreational Drug Use: Yes Drug Use in Last 12 Months: Yes Recreational Drug Type: Reports: Cocaine, Methamphetamine - Living Situation & Occupation Living situation: Reports: with Spouse ED ROS GENERAL - Review of Systems Review Of Systems: Comprehensive ROS is negative, except as noted in HPI. ED EXAM, GENERAL - Physical Exam Exam: See Below (see h and p) Course - Vital Signs Text/Narrative:: Patient tolerated p.o. challenge. Imaging of the chest is negative, labs are unremarkable, vital signs are stable, no stridor, symptoms could be consistent with a laryngospasm, but she has no trouble breathing, and because she is tolerating oral fluids I do not see the need for further testing at this time. I discussed the potential of doing a CT scan of the neck, but at this time I do believe it is indicated since she is able to drink fluids and eat, albeit a small amount, of food. She feels better after getting antianxiety meds here in the ED. She feels comfortable plan to be discharged home and follow-up in the outpatient setting. Return precautions provided, otherwise she was well- appearing and nontoxic at discharge. Last Recorded V/S: Last Vital Signs Temp 36.2 C 06/30/20 22:40 Pulse 90 06/30/20 22:40 Resp 20 06/30/20 22:40 BP 123/69 06/30/20 22:40 Pulse Ox 98 06/30/20 22:40 - Orders/Labs/Meds Orders: Active Orders 24 hr Category Date Time Status Sodium Chloride 0.9% [Saline Flush] Med 06/30/20 22:53 Active 10 ml FLUSH ASDIRECTED PRN Sodium Chloride 0.9% [Saline Flush] Med 06/30/20 22:53 Active 2.5 ml FLUSH ASDIRECTED PRN Saline Lock Insert [OM.PC] Stat Oth 06/30/20 22:53 Ordered Medication Orders Sodium Chloride (Saline Flush) 10 ml FLUSH ASDIRECTED PRN PRN Reason: Keep Vein Open Sodium Chloride (Saline Flush) 2.5 ml FLUSH ASDIRECTED PRN PRN Reason: Keep Vein Open Labs: Laboratory Tests 06/30/20 06/30/20 06/30/20 Range/Units 23:15 23:15 23:15 WBC 4.88 (4.0-11.0) K/uL RBC 4.06 L (4.30-5.90) M/uL Hgb 12.5 (12.0-16.0) g/dL Hct 36.9 (36.0-46.0) % MCV 90.9 (80.0-98.0) fL MCH 30.8 (27.0-32.0) pg MCHC 33.9 (31.0-37.0) g/dL RDW Std Deviation 42.7 (28.0-62.0) fl RDW Coeff of Michelle 13 (11.0-15.0) % Plt Count 298 (150-400) K/uL MPV 10.60 (7.40-12.00) fL Neut % (Auto) 37.5 L (48.0-80.0) % Lymph % (Auto) 51.2 H (16.0-40.0) % Mcduffie % (Auto) 7.2 (0.0-15.0) % Eos % (Auto) 3.5 (0.0-7.0) % Baso % (Auto) 0.6 (0.0-1.5) % Neut # (Auto) 1.8 (1.4-5.7) K/uL Lymph # (Auto) 2.5 H (0.6-2.4) K/uL Mcduffie # (Auto) 0.4 (0.0-0.8) K/uL Eos # (Auto) 0.2 (0.0-0.7) K/uL Baso # (Auto) 0.0 (0.0-0.1) K/uL Nucleated RBC % 0.0 /100WBC Nucleated RBCs # 0 K/uL Sodium 136 (136-145) mmol/L Potassium 4.0 (3.5-5.1) mmol/L Chloride 103 (98-107) mmol/L Carbon Dioxide 23.5 (21.0-32.0) mmol/L BUN 12 (7.0-18.0) mg/dL Creatinine 0.7 (0.6-1.0) mg/dL Est Cr Clr Drug Dosing 119.40 mL/min Estimated GFR (MDRD) > 60.0 ml/min Glucose 107 H (74-106) mg/dL Calcium 9.0 (8.5-10.1) mg/dL HCG, Qual NEGATIVE (NEG) Meds: Medications Generic Name Dose Route Start Last Admin Trade Name Freq PRN Reason Stop Dose Admin Sodium Chloride 10 ml 06/30/20 22:53 Saline Flush FLUSH ASDIRECTED PRN Keep Vein Open Sodium Chloride 2.5 ml 06/30/20 22:53 Saline Flush FLUSH ASDIRECTED PRN Keep Vein Open Discontinued Medications Generic Name Dose Route Start Last Admin Trade Name Freq PRN Reason Stop Dose Admin Sodium Chloride 1,000 mls @ 999 mls/hr 06/30/20 22:53 06/30/20 23:21 Normal Saline IV 06/30/20 23:53 999 mls/hr .Bolus ONE Administration Lorazepam 1 mg 06/30/20 22:53 06/30/20 23:22 Ativan IVPUSH 06/30/20 22:54 1 mg ONETIME ONE Administration Departure - Departure Time of Disposition: 00:51 Disposition: Home, Self-Care 01 Condition: Good Clinical Impression: Trouble swallowing - Discharge Information Instructions: Dysphagia Referrals: PCP,None [Primary Care Provider] - Forms: ED Department Discharge Additional Instructions: Follow-up with primary care doctor. Take all medications as previously prescribed. Return to the ER with any new or worsening symptoms. The following information is given to patients seen in the emergency department who are being discharged to home. This information is to outline your options for follow-up care. We provide all patients seen in our emergency department with a follow-up referral. The need for follow-up, as well as the timing and circumstances, are variable de pending upon the specifics of your emergency department visit. If you don't have a primary care physician on staff, we will provide you with a referral. We always advise you to contact your personal physician following an emergency department visit to inform them of the circumstance of the visit and for follow-up with them and/or the need for any referrals to a consulting specialist. The emergency department will also refer you to a specialist when appropriate. This referral assures that you have the opportunity for follow-up care with a specialist. All of these measure are taken in an effort to provide you with optimal care, which includes your follow-up. Under all circumstances we always encourage you to contact your private physician who remains a resource for coordinating your care. When calling for follow-up care, please make the office aware that this follow-up is from your recent emergency room visit. If for any reason you are refused follow-up, please contact the [facility] Emergency Department at and asked to speak to the emergency department charge nurse. Sepsis Event Note (ED) - Evaluation Sepsis Screening Result: No Definite Risk - Focused Exam Vital Signs: Vital Signs Temp Pulse Resp BP Pulse Ox 06/30/20 22:40 36.2 C 90 20 123/69 98 - My Orders Last 24 Hours: My Active Orders 06/30/20 22:53 Sodium Chloride 0.9% [Saline Flush] 10 ml FLUSH ASDIRECTED PRN Sodium Chloride 0.9% [Saline Flush] 2.5 ml FLUSH ASDIRECTED PRN Saline Lock Insert [OM.PC] Stat - Assessment/Plan Last 24 Hours: My Active Orders 06/30/20 22:53 Sodium Chloride 0.9% [Saline Flush] 10 ml FLUSH ASDIRECTED PRN Sodium Chloride 0.9% [Saline Flush] 2.5 ml FLUSH ASDIRECTED PRN Saline Lock Insert [OM.PC] Stat
[2020-06-30 23:36] LABS: BLOOD UREA NITROGEN,BUN 12 mg/dL (7.0-18.0); CARBON DIOXIDE,CO2 23.5 mmol/L (21.0-32.0); CHLORIDE,CL 103 mmol/L (98-107); GLUCOSE RANDOM 107 mg/dL (74-106); SODIUM,NA 136 mmol/L (136-145)
--- NOTE | 2020-07-01 00:44 | CR ---
INDICATION: Trouble swallowing TECHNIQUE: PA view of the chest. COMPARISON: Single-view chest radiograph 05/04/2020 FINDINGS: The lungs are clear. There is no pleural effusion or pneumothorax. The cardiomediastinal silhouette is normal. The visualized osseous structures are unremarkable. IMPRESSION: No acute intrathoracic process. Dictated by Yanelis Pelaez MD @ Jul 01 2020 12:41AM Signed by Dr. Yanelis Pelaez @ Jul 01 2020 12:42AM
[2020-07-01] MEDS ORDERED: LORazepam 1 MG Tab PO ONE (00:52)
[2020-07-01 00:59] VITALS: BP 105/51; PULSE 77
== END 2020-07-01 00:57 | disposition home or self-care (01) ==
LOC: MW.ED 22:27
DX: R13.10 Dysphagia, unspecified (principal); R56.9 Unspecified convulsions; F41.9 Anxiety disorder, unspecified; F32.9 Major depressive disorder, single episode, unspecified; F17.210 Nicotine dependence, cigarettes, uncomplicated; Z88.6 Allergy status to analgesic agent; Z88.8 Allergy status to other drugs, medicaments and biological substances; Z79.899 Other long term (current) drug therapy
CPT/HCPCS: 36415; 71045; 80048; 84703; 85025; 96361; 96374; 99284; A9270; J2060; J7030

== ENCOUNTER 2022-01-25 15:56 | Emergency (ER) | payer MEDICAID ==
[2022-01-25] MEDS ORDERED: HYDROmorphone 1 MG/ML Syringe IVPUSH ONE (16:04)
[2022-01-25] MEDS ORDERED: diphenhydrAMINE 50 MG/ML SDV IVPUSH ONE (16:04)
[2022-01-25] MEDS ORDERED: Sodium Chloride 0.9% 1,000 ML IV ONE (16:04)
[2022-01-25] MEDS ORDERED: Metoclopramide 10 MG/2 ML SDV IVPUSH ONE (16:04)
[2022-01-25 17:08] LABS: BLOOD UREA NITROGEN,BUN 10 mg/dL (7.0-18.0); CARBON DIOXIDE,CO2 30.7 mmol/L (21.0-32.0); CHLORIDE,CL 101 mmol/L (98-107); ESTIMATED GFR > 60.0 ml/min; GLUCOSE RANDOM 124 mg/dL (74-106); LIPASE 53 U/L (73-393); POTASSIUM,K 3.5 mmol/L (3.5-5.1); SODIUM,NA 138 mmol/L (136-145)
[2022-01-25] MEDS ORDERED: Iopamidol 755 MG/ML 500 ML Multipack Bottle IVPUSH STA (17:31)
[2022-01-25] MEDS ORDERED: cefTRIAXone 1 GM in Sodium Chloride 0.9% 50 ML IV ONE (17:41)
[2022-01-25 17:50] VITALS: BP 101/54; PULSE 66
== END 2022-01-25 18:26 | disposition home or self-care (01) ==
LOC: MW.ED 15:56
DX: N39.0 Urinary tract infection, site not specified (principal); I10 Essential (primary) hypertension; F41.9 Anxiety disorder, unspecified; F32.A Depression, unspecified; Z88.5 Allergy status to narcotic agent; Z79.899 Other long term (current) drug therapy
CPT/HCPCS: 36415; 74177; 80053; 80307; 81001; 83605; 83690; 83735; 84484; 84703; 85025; 93005; 96374; 96375; 99284; J0696; J1170; J1200; J2765; J7030; Q9967; 93010

== ENCOUNTER 2022-02-03 06:16 | Emergency (ER) | payer MEDICAID ==
[2022-02-03 07:29] VITALS: BP 131/70; PULSE 92
== END 2022-02-03 07:35 | disposition left against medical advice (07) ==
LOC: MW.ED 06:16
DX: R07.89 Other chest pain (principal); R00.2 Palpitations; F41.9 Anxiety disorder, unspecified; F32.9 Major depressive disorder, single episode, unspecified; Z88.6 Allergy status to analgesic agent; Z88.8 Allergy status to other drugs, medicaments and biological substances; Z79.899 Other long term (current) drug therapy
CPT/HCPCS: 71045; 71045-26; 93005; 99285-25

== ENCOUNTER 2022-03-13 08:26 | Emergency (ER) | payer MEDICAID ==
[2022-03-13 09:41] LABS: CORONAVIRUS COVID-19 NAA NEGATIVE (NEGATIVE); INFLUENZA A NAA NEGATIVE (NEGATIVE); INFLUENZA B NAA NEGATIVE (NEGATIVE)
[2022-03-13] MEDS ORDERED: Azithromycin 250 MG Tab PO ONE (09:47)
[2022-03-13 10:10] VITALS: BP 110/61; PULSE 86
== END 2022-03-13 10:08 | disposition home or self-care (01) ==
LOC: MW.ED 08:26
DX: R05.9 Cough, unspecified (principal); I10 Essential (primary) hypertension; Z28.310 Unvaccinated for COVID-19; Z88.5 Allergy status to narcotic agent; Z88.8 Allergy status to other drugs, medicaments and biological substances; Z72.0 Tobacco use; Z20.822 Contact with and (suspected) exposure to COVID-19
CPT/HCPCS: 0240U; 99283; A9270

== ENCOUNTER 2022-03-23 06:12 | Emergency (ER) | payer MEDICAID ==
[2022-03-23] MEDS ORDERED: Alum Hydro/Mag Hydro/Simeth XS 15 ML, Lidocaine 2% 5 ML PO ONE ×2 (06:15)
[2022-03-23] MEDS ORDERED: Famotidine 20 MG Tab PO ONE (06:15)
[2022-03-23 06:49] VITALS: BP 126/77; PULSE 75
[2022-03-23 07:16] LABS: BLOOD UREA NITROGEN,BUN 12 mg/dL (7.0-18.0); CARBON DIOXIDE,CO2 30.1 mmol/L (21.0-32.0); CHLORIDE,CL 102 mmol/L (98-107); GLUCOSE RANDOM 123 mg/dL (74-106); SODIUM,NA 139 mmol/L (136-145)
== END 2022-03-23 08:19 | disposition home or self-care (01) ==
LOC: MW.ED 06:12
DX: K20.90 Esophagitis, unspecified without bleeding (principal); I10 Essential (primary) hypertension; Z88.5 Allergy status to narcotic agent; Z88.8 Allergy status to other drugs, medicaments and biological substances; Z86.16 Personal history of COVID-19
CPT/HCPCS: 36415; 71045; 71045-26; 80048; 81025; 83735; 84484; 85025; 93005; 99285-25; A9270-GY

== ENCOUNTER 2022-10-06 14:33 | Emergency (ER) | payer SELFPAY ==
[2022-10-06] MEDS ORDERED: Ketorolac 30 MG/ML SDV IM ONE (16:27)
[2022-10-06 17:05] LABS: CARBON DIOXIDE,CO2 25.7 mmol/L (21.0-32.0); POTASSIUM,K 3.7 mmol/L (3.5-5.1)
[2022-10-06] MEDS ORDERED: Metoclopramide 10 MG Tab PO ONE (17:29)
[2022-10-06] MEDS ORDERED: Ondansetron 4 MG Tab.DIS PO STA (17:31)
[2022-10-06] MEDS: OLANZapine 5 MG Tab PO SCH (20:55)
[2022-10-06] MEDS ORDERED: Acetaminophen 325 MG Tab PO ONE (22:46)
[2022-10-06] MEDS ORDERED: Acetaminophen 500 MG Tab ONE (22:51)
[2022-10-06] MEDS ORDERED: Acetaminophen 500 MG Tab PO ONE (22:54)
[2022-10-06] MEDS ORDERED: LORazepam 0.5 MG Tab PO ONE (23:38)
[2022-10-07] MEDS: OLANZapine 5 MG Tab PO SCH (08:37)
[2022-10-07] MEDS ORDERED: Morphine 4 MG/ML Syringe IVPUSH ONE ×3 (08:38→13:13)
[2022-10-07 09:19] LABS: CORONAVIRUS COVID-19 NAA NEGATIVE (NEGATIVE); INFLUENZA A NAA NEGATIVE (NEGATIVE); INFLUENZA B NAA NEGATIVE (NEGATIVE)
[2022-10-07 11:20] VITALS: BP 112/57; PULSE 70
== END 2022-10-07 13:27 ==
LOC: MW.ED 14:33
DX: S72.042A Displaced fracture of base of neck of left femur, initial encounter for closed fracture (principal); I10 Essential (primary) hypertension; Z79.899 Other long term (current) drug therapy; Z88.5 Allergy status to narcotic agent; Z20.822 Contact with and (suspected) exposure to COVID-19
CPT/HCPCS: 0240U; 36415; 73502; 73552; 80053; 81025; 82550; 85025; 85379; 85610; 96372; 96374; 96376; 99283; A9270; J1885; J2270

== ENCOUNTER 2023-04-22 19:57 | Emergency (ER) | payer MEDICAID ==
[2023-04-22] MEDS ORDERED: Aspirin 81 MG Tab.Chew PO ONE (20:15)
[2023-04-22] MEDS: Ondansetron 4 MG Tab.DIS PO ONE ×2 (20:20→20:26)
[2023-04-22 20:32] LABS: BASOPHILS PERCENT AUTO 0.1 % (0.0-1.5); HEMATOCRIT 42.7 % (36.0-46.0); HEMOGLOBIN 15.4 g/dL (12.0-16.0); LYMPHOCYTES ABSOLUTE AUTO 1.9 K/uL (0.6-2.4); LYMPHOCYTES PERCENT AUTO 23.6 % (16.0-40.0); MEAN CORPUSCULAR HEMOGLOBIN 30.9 pg (27.0-32.0); MEAN CORPUSCULAR HGB CONC 36.1 g/dL (31.0-37.0); MEAN CORPUSCULAR VOLUME 85.6 fL (80.0-98.0); MONOCYTES ABSOLUTE AUTO 0.6 K/uL (0.0-0.8); MONOCYTES PERCENT AUTO 7.7 % (0.0-15.0); NEUTROPHILS ABSOLUTE AUTO 5.5 K/uL (1.4-5.7); NEUTROPHILS PERCENT AUTO 68.6 % (48.0-80.0); NRBC ABSOLUTE 0 K/uL; PLATELET COUNT,PLT 319 K/uL (150-400); RED BLOOD CELL COUNT 4.99 M/uL (4.30-5.90); WHITE BLOOD CELL COUNT,WBC 8.05 K/uL (4.0-11.0)
[2023-04-22 20:58] LABS: ALBUMIN 3.9 g/dL (3.4-5.0); BILIRUBIN TOTAL 0.7 mg/dL (0.2-1.0); CALCIUM 9.1 mg/dL (8.5-10.1); CARBON DIOXIDE,CO2 25.7 mmol/L (21.0-32.0); EST CRCL DRUG DOSING (CG) 81.08 mL/min; PROTEIN TOTAL,TP 7.8 g/dL (6.4-8.2)
[2023-04-22] MEDS ORDERED: diphenhydrAMINE 50 MG Cap PO ONE (21:31)
[2023-04-22 23:41] VITALS: BP 120/75; PULSE 71
== END 2023-04-22 21:30 | disposition home or self-care (01) ==
LOC: MW.ED 19:57
DX: K29.00 Acute gastritis without bleeding (principal); I10 Essential (primary) hypertension; Z86.711 Personal history of pulmonary embolism; Z86.16 Personal history of COVID-19; Z98.890 Other specified postprocedural states; Z88.5 Allergy status to narcotic agent; Z79.899 Other long term (current) drug therapy
CPT/HCPCS: 36415; 71045; 80053; 84484; 85025; 93005; 99285; A9270; 93010; 99283